=== PATIENT | female | born 1960 | race Caucasian/White ===

== ENCOUNTER 2016-05-29 12:17 | Inpatient (IN) | payer MEDICAID, OTHER ==
[~2016-05-29] VITALS: Ht 157.5 cm; Wt 47.7 kg
[~2016-05-29 12:17] MED LIST: ALBU17AE3 IH; AMOX500C2 PO; BUDE10.22 IH
[2016-05-29] MEDS ORDERED: HYDROcodone/APAP 5 MG/325 MG (LORTAB) TAB PO PRN (18:00)
[2016-05-29] MEDS: ALPRAZolam 0.25 MG (XANAX) TAB PO PRN (18:34)
[2016-05-29] MEDS: AMITRIPTYLINE 50 MG (ELAVIL) TAB PO SCH (22:01)
[2016-05-29] MEDS: ENOXAPARIN 30 MG/0.3 ML (LOVENOX) SYR SC SCH (22:02)
[2016-05-29] MEDS: HYDROcodone/APAP 10 MG/325 MG (LORTAB) TAB PO PRN (22:02)
[2016-05-30] MEDS: ALPRAZolam 0.25 MG (XANAX) TAB PO PRN ×2 (05:19→20:43)
[2016-05-30] MEDS: HYDROcodone/APAP 10 MG/325 MG (LORTAB) TAB PO PRN ×4 (05:19→20:43)
[2016-05-30 06:00] VITALS: BP 100/70
[2016-05-30 06:34] LABS: BASOPHILS # (AUTO) 0.1 10^3/uL (0.0-0.1); BASOPHILS % (AUTO) 1 % (0-10); EOSINOPHILS # (AUTO) 0.1 10^3/uL (0.0-0.3); EOSINOPHILS % (AUTO) 1 % (0-10); LYMPHOCYTES # (AUTO) 1.2 X 10^3 (1.0-4.0); LYMPHOCYTES % (AUTO) 13 % (12-44); MEAN CORPUSCULAR HEMOGLOBIN 28 PG (25-34); MEAN CORPUSCULAR HGB CONC 32 G/DL (32-36); MEAN CORPUSCULAR VOLUME 88 FL (80-99); MONOCYTES # (AUTO) 0.6 X 10^3 (0.0-1.0); MONOCYTES % (AUTO) 7 % (0-12); NEUTROPHILS # (AUTO) 7.3 X 10^3 (1.8-7.8); NEUTROPHILS % (AUTO) 79 % (42-75); PLATELET COUNT 256 10^3/uL (130-400); RED CELL DISTRIBUTION WIDTH 18.2 % (10.0-14.5); WHITE BLOOD COUNT 9.3 10^3/uL (4.3-11.0)
[2016-05-30 06:49] LABS: ALANINE AMINOTRANSFERASE 6 U/L (0-55); ANION GAP 11 MMOL/L (5-14); ASPARTATE AMINO TRANSFERASE 13 U/L (5-34); BILIRUBIN,TOTAL 0.4 MG/DL (0.1-1.0); BLOOD UREA NITROGEN 15 MG/DL (7-18); BUN/CREATININE RATIO 26; CALCIUM 7.4 MG/DL (8.5-10.1); CARBON DIOXIDE 24 MMOL/L (21-32); CHLORIDE 107 MMOL/L (98-107); CREATININE SERUM 0.57 MG/DL (0.60-1.30); GFR ESTIMATED > 60; GLUCOSE 79 MG/DL (70-105); POTASSIUM 3.5 MMOL/L (3.6-5.0); SODIUM 142 MMOL/L (135-145); TOTAL PROTEIN 4.8 G/DL (6.4-8.2)
[2016-05-30] MEDS: PARoxetine 10 MG (PAXIL) TAB PO SCH (08:49)
--- NOTE | 2016-05-30 08:50 | Consultation ---
History of Present Illness History of Present Illness Patient Consulted On(aimee/time) 05/30/16 08:44 Date of Admission History of Present Illness patient transferred from [facility] to [facility] and now back in rehabilitation. Patient doesn't give a good history. Patient refuses recreational drugs. According to the nurse patient uses mass. Patient denies drinking and smoking. Patient fragile and recent ofjou-woy-zstl amputation of the left leg. Patient has a Olivarez catheter in due to incontinence. Patient has breakdowns of skin. Allergies and Home Medications Allergies Coded Allergies: No Allergy Information Available (Unverified , 05/03/16) PT UNRESPONSIVE Home Medications Albuterol 17 Gm Inh 1 SPRAY IH UD (Reported) Amoxicillin 500 Mg Capsule #20 1 EACH PO TID Prescribed by: MELVA DUNN on 11/24/10 0759 Budesonide/Formoterol Fumarate 10.2 Gm Hfa.aer.ad 10.2 GM IH BID (Reported) Past Icdbnli-Gggaty-Pqawvt Hx Patient Social History Alcohol Use: Denies Use Recreational Drug Use: Yes (METH/PAST) Drug of Choice: meth Smoking Status: Current Everyday Smoker Type Used: Cigarettes Recent Foreign Travel: No Contact w/Someone Who Travel: No Recent Infectious Disease Expo: No Recent Hopitalizations: Yes (multi organ failure) Physical Abuse Screen: No Sexual Abuse: No Immunizations Up To Date Date of Influenza Vaccine: May 22, 2016 Seasonal Allergies Seasonal Allergies: No Surgeries HX Surgeries: No (unknown) Respiratory Hx Respiratory Disorders: No (unknown) Respiratory Disorders: COPD Cardiovascular Hx Cardiac Disorders: No (unknown) Genitourinary Genitourinary Disorders: Renal Failure Musculoskeletal Musculoskeletal Disorders: Amputee Blood Transfusions Adverse Reaction to a Blood Tr: No Review of Systems-General Constitutional: malaise weakness other (Kathrine fragile and has breakdowns) EENTM: no symptoms reported Respiratory: other (COPD history) Cardiovascular: no symptoms reported Gastrointestinal: no symptoms reported Genitourinary: incontinence (urge) Physical Exam-General Problems Physical Exam Vital Signs Vital Sign - Last 12Hours 05/29/16 05/29/16 05/30/16 17:00 21:30 06:00 Temp 97.6 Pulse 81 Resp 22 B/P 100/70 Pulse Ox 96 O2 Delivery Room Air Capillary Refill : Greater Than 3 Seconds General Appearance: thin Eyes: Bilateral Eye Normal Inspection HEENT: normal ENT inspection Neck: full range of motion Respiratory: chest non-tender no respiratory distress no accessory muscle use decreased breath sounds Cardiovascular: regular rate, rhythm no murmur Assessment/Plan Assessment/Plan Admission Diagnosis/Plan fragile. Weakness. New-onset diabetes. Skin breakdown Clinical Quality Measures DVT/VTE Risk/Contraindication: Risk Factor Score Per Nursin RFS Level Per Nursing on Admit: 4+=Very High IBRAHIMA PATTON DO May 30, 2016 08:50
--- NOTE | 2016-05-30 09:39 | Physical Therapy Evaluation ---
PT Evaluation-General Medical Diagnosis Admission Date May 29, 2016 at 18:00 Medical Diagnosis: ARF, Rhabdo, amputation Onset Date: May 30, 2016 Therapy Diagnosis Therapy Diagnosis: weakness; decreased functional mobility Height/Weight Height (Feet): 5 Height (Inches): 2 Weight (Pounds): 105 Weight (Ounces): 1.0 Precautions Precautions/Isolations: Fall Prevention, Standard Precautions, Pressure Ulcer Weight Bear Status Location Restriction: L LE Comments Left AKA; right LE with toes amputated, may WB through the heel per records and Dr. Lopez Referral Physician: John Reason for Referral: Evaluation/Treatment Medical History Current History Initial onset 05/04/16 pt found unresponsive on floor at home; multiple medical complications to follow. ARF, hypernatremia, Rhabdomyolysis; pt was intubated and on a vent several days. Chart review also reveals anxiety, history of meth abuse (pt denies), PVD and prior lunar infarct. Pt has also had (due to recent hospitalization) left AKA and right toes amputated. Reviewed History: Yes Social History Home: Single Level Current Living Status: Spouse Pt unsure but believes she lives in a house (not apartment) but denies any stairs to enter. Prior/Core FIM Prior Level of Function Functional [place] Measure 0=Not Assessed/NA 4=Minimal Assistance 1=Total Assistance 5=Supervision or Setup 2=Maximal Assistance 6=Modified [place] 3=Moderate Assistance 7=Complete [place] Bed Mobility: 7 Transfers (B,C,W/C) (FIM): 7 Gait: 7 Pt reports she was active in the community, still able to drive. PT Evaluation-Current Subjective Pt agreeable to PT. Pt/Family Goals Pt's goals are to return home. Objective Patient Orientation: Person, Confused Problem Solving: Poor At times, she is clear on her thought process and other times she is quite confused. Pt unable to tell us where she is or the date/time of year. Talks at times of her mother in the present tense but then states that she has passed. Her clarity varies. ROM/Strength ROM Lower Extremities WFL AAROM; pt a bit resistant at end ranges. Strenght Lower Extremities Left residual limb hip flexion and abduction is 3/5. Right LE DF 2/5, hip flexion and quads are 2+/5. Integumentary/Posture Integumentary Multiple areas, refer to nursing notes for full detail. Of note, bilateral elbows reddened--elbow protectors applied, right heel reddened--elevated, coccyx with breakdown and redness--tilted to her side. Bowel Incontinence: Yes Bladder Incontinence: Olivarez Cath Posture symmetrical; slight rounded shoulders in sitting but likely due to weakness. Neuromuscular (Tone, Coordination, Reflexes) Did not assess at this time specifically, but likely slightly impaired yet functional Sensory Vision: Functional Hearing: Functional Hand Dominance: Right Sensation Right Lower Extremit: Intact Sensation Left Lower Extremity: Intact Transfers Functional [place] Measure 0=Not Assessed/NA 4=Minimal Assistance 1=Total Assistance 5=Supervision or Setup 2=Maximal Assistance 6=Modified [place] 3=Moderate Assistance 7=Complete IndependenceIRFPAI Quality Coding Scale 6 Independent with activity with or without an assistive device 5 Patient requires set up or clean up by helper. Patient completes activity by themselves 4 Supervision or touching assist (CGA). Long [address] provide cues , steadying assist 3 The helper provides less than half the effort to complete the activity 2 The helper provides more than half the effort to complete the activity 1 Dependent. The helper does all the effort to complete an activity 7 Patient refused to complete or attempt activity 9 The patient did not perform the activity before the current illness or injury 88 Not attempted due to Medical conditions or safety concerns Transfers (B, C, W/C) (FIM): 1 (Asssit of 2) Scootin Rollin Roll Left to Right (QC): 2 Supine to/from Sit: 1 Sit to/from Stand: 1 (not tested at this time. ) bed t/f WC(FIM only if WC use): 1 Sit to Lying (QC): 2 Lying to Sitting/Side of Bed(Q: 2 Sit to Stand (QC): 88 Chair/Plt-cs-Vlxae Xfer(QC): 88 Car Transfer (QC): 88 Pt can participate with mobilty but needs many cues and much assist. Gait Does the Patient Walk?: Yes Mode of Locomotion: Both Anticipated Mode of Locomotion: Both Gait (FIM): 0 (unable at this time) Walk 10 feet (QC): 88 Walk 50 ft with 2 Turns(QC): 88 Walk 150 ft (QC): 88 Walking 10ft/uneven surface-QC: 88 Comments/Gait Description Pt unable to walk at this time or even attempt to stand, however, goal is for patient to be able to at least hop a short distance in the room. Wheelchair Training Does the Pt Use a Wheelchair?: Yes Wheelchair (FIM): 88 Wheelchair Distance (FIM): 0=does not occure Type of Wheelchair: Manual wc mobility not tested at this time as pt unable to perform Stairs Stairs (FIM): 0 (unable to stand) 1 Step (curb) (QC): 88 4 Steps (QC): 88 12 Steps (QC): 88 If not tested on admit;explain Unable to stand Balance Sitting Static: Poor Sitting Dynamic: Poor Picking up an Object (QC): 88 (unable to stand) Treatment Co treat with OT due to pt poor ability to follow cues, stay on task and multiple need for skilled clinician. OT addressed self care and ADL's while PT focused on functional transfers, sitting EOB balance and bed mobility. Pt bathed and dressed with OT while PT facilitated transitions, seated balance static and dynamic as well as rolling scooting and positioning in bed to dress. Pt positioned post treatment to relieve pressure on right heel and coccyx. Assessment/Needs Pt post multiple medical complications after being found at home unresponsive. She has endured multiple medical issues and sustained left AKA and right toes amputation. She presents with decreased functional strength, decreased functional balance, assist with all transfers and bed mobility, unable to stand and limited functional activity tolerance. She has many medical issues that may impede her progress and is severely weakened with much assist for all mobility and self care. She will benefit from skilled PT services to address her mobility and strength to allow her to return home at a modified level. Rehab Potential: Guarded PT Short Term Goals Short Term Goals Time Frame: Jun 13, 2016 Transfers (B,C,W/C) (FIM): 4 Gait (FIM): 1 (hops only) Wheelchair (FIM): 4 Wheelchair distance (FIM): 3=150 ft PT Intermediate Goals Intermediate Goals PT Button Sewer Hand Goals Time Frame: Jun 27, 2016 Transfers (B,C,W/C) (FIM): 6 Sit to Lying (QC): 6 Lying-Sitting on Side/Bed(QC): 6 Sit to Stand (QC): 6 Roll Left to Right (QC): 6 Chair/Ueb-ep-Xfwee Xfer(QC): 6 Car Transfer (QC): 5 Does the Patient Walk: Yes Gait (FIM): 2 Gait distance (FIM): 1=up to 49 ft Distance: 10 ft hopping Walk 10 feet (QC): 4 Walk 10ft-Uneven Surface(QC): 88 Walk 50ft with 2 Turns (QC): 88 Walk 150 ft (QC): 88 Gait Level of Assist: 4 Gait Assistive Device: FWW Does the Pt use WC or Scooter?: Yes Wheelchair (FIM): 6 Wheelchair distance (FIM): 3=150 ft Wheelchair Level of Assist: 6 Wheel 50 feet with 2 turns (QC: 6 Stairs (FIM): 88 (usafe to attempt) 1 Step (curb) (QC): 88 4 Steps (QC): 88 12 Steps (QC): 88 Picking up an Object (QC): 88 (unsafe) Goals are for pt to primarily be at a wheelchair level being mod indep with transfers and wheelchair mobility. An additional goal is for her to hop only short distance to assist her to move about in small places with FWW with min- SBA. PT Plan Problem List Problem List: Activity Tolerance, Functional Strength, Safety, Balance, Gait, Transfer, Bed Mobility, ROM Treatment/Plan Treatment Plan: Continue Plan of Care Treatment Plan: Bed Mobility, Education, Functional Activity [place], Functional Strength, Group Therapy, Gait, Safety, Therapeutic Exercise, Transfers Treatment Duration: Jun 27, 2016 # of days/week 5-6 Visits Per Week: 10-15 Minutes/Day (M-F): 60-90 Minutes/Day (Sat/Gallego): prn Pt/Family Agrees w/Plan: Yes Safety Risks/Education Patient Education: Safety Issues Teaching Recipient: Patient Teaching Methods: Discussion Response to Teaching: Reinforcement Needed Discharge Recommendations Plan Progress functional mobility. Attempt slide board or jill transfer this afternoon. Time/GCodes Time In: 820 Time Out: 930 Total Billed Treatment Time: 70 Total Billed Treatment visit EVHigh 820-830 FA x 4 830-930; co treat with OT 830-930. DAVID AWAD PT May 30, 2016 09:38
--- NOTE | 2016-05-30 09:42 | PM & R (SOAP) Progress Note ---
Subjective Subjective/Events-last exam Patient was seen in her room this AM Discussed case with PT and ST Appreciate Dr christianson note and orders Labs noted Serum Ca and K albumin low Review of Systems HEENT: Other (difficulty with swallow) Objective Exam Last Set of Vital Signs Vital Signs Date Time Temp Pulse Resp B/P Pulse Ox O2 Delivery O2 Flow Rate FiO2 05/30/16 06:00 97.6 81 22 100/70 98 Room Air Capillary Refill : Greater Than 3 Seconds I&O Bad tableGeneral: Alert, Oriented X3, Cooperative, No Acute Distress HEENT: Atraumatic, PERRLA, EOMI, Mucous Memb Moist/[place] Neck: Supple, No JVD Lungs: Clear to Auscultation Heart: Regular Rate Abdomen: Normal Bowel Sounds, Soft, No Tenderness Extremities: Other (left aka healing well rt foor dressed) Skin: Other (various bruises) Neuro: Other (generalized weakness) Psych/Mental Status: Other (flat affect) Other physical findings Olivarez catheter to DD Results Lab Laboratory Tests 05/29/16 19:36: Glucometer 82 05/29/16 21:01: Glucometer 84 05/30/16 06:18: Glucometer 81 05/30/16 06:19: Alanine Aminotransferase (ALT/SGPT) 6, Albumin 2.0L, Alkaline Phosphatase 124, Anion Gap 11, Aspartate Amino Transf (AST/SGOT) 13, BUN/Creatinine Ratio 26, Basophils # (Auto) 0.1, Basophils (%) (Auto) 1, Blood Urea Nitrogen 15, Calcium Level 7.4L, Carbon Dioxide Level 24, Chloride Level 107, Creatinine 0.57L, Eosinophils # (Auto) 0.1, Eosinophils (%) (Auto) 1, Estimat Glomerular Filtration Rate > 60, Glucose Level 79, Hematocrit 28L, Hemoglobin 8.9L, Lymphocytes # (Auto) 1.2, Lymphocytes (%) (Auto) 13, Mean Corpuscular Hemoglobin 28, Mean Corpuscular Hemoglobin Concent 32, Mean Corpuscular Volume 88, Mean Platelet Volume 11.0H, Monocytes # (Auto) 0.6, Monocytes (%) (Auto) 7, Neutrophils # (Auto) 7.3, Neutrophils (%) (Auto) 79H, Platelet Count 256, Potassium Level 3.5L, Prealbumin 12.7L, Red Blood Count 3.20L, Red Cell Distribution Width 18.2H, Sodium Level 142, Total Bilirubin 0.4, Total Protein 4.8L, White Blood Count 9.3 Assessment/Plan Assessment S/P left aka S/P toe amputations rt foor WBAT RT Heel Underweight with hx of Substance abuse Hypocalcemia Hypokalemia mild Anemia Dysphagia on modified consistency diet Plan Continue PT/OT/ST Patient late arrival from OSH last evening and assessments ongoing Replace electrolytes Nutritional consult Behav Health consult WBS RLE clarified D/C Olivarez when more mobile F/U Labs F/U with DR Varela PRYong F/U with Case management re patient obtaining a Medical Card as patient has no current Medical Insurance. See orders. MAHENDRA MCGILL MD May 30, 2016 09:42
--- NOTE | 2016-05-30 10:01 | HISTORY AND PHYSICAL ---
DATE OF ADMISSION: 05/29/2016 CHIEF COMPLAINT: Difficulty with walking. HISTORY OF PRESENT ILLNESS: The patient is a 55-year-old female with history of meth abuse who was transferred from [facility] to [facility] in [place] after she presented there unresponsive with profound circulatory shock and multiorgan failure. The patient received fluid resuscitation. CT of the head showed old lacunar infarcts in the basal ganglia. The patient went on to have a left AKA on 05/13/2016. The patient received 2 units packed red blood cells on 05/26 and 05/27/2016 and 2nd, 3rd and 4th toes and tip of the great toe amputation of the right foot. Right heel is weight-bearing as tolerated using Darco ortho wedge postop shoe. Her postop acute kidney injury and acute respiratory failure have resolved. Prior to hospitalization, the patient was living with her in [place], [place] and was reportedly independent; however, the patient is quite underweight with pressure sores on her buttocks and various bruising. She was referred to Inpatient Rehabilitation Unit at [facility] for ongoing amputee rehab and rehab for general debilitation. One of her physicians at [facility] discussed the case with Dr. Lopez by phone today. He mentioned it to watch out for dehydration as she is underweight, most likely due to history of substance abuse. Currently, she requires assistance for her ADLs and mobility skills. Her Accu-Chek upon admission was 29. Replacement was given. PAST MEDICAL HISTORY: 1. Substance abuse. 2. Weight loss, most likely due to above PAST SURGICAL HISTORY: As per above. Acute blood loss anemia as per above. PAST SURGICAL HISTORY: As per above. ALLERGIES: No known medication allergies. CODE STATUS: She is reported to be a DO NOT RESUSCITATE. FAMILY HISTORY: Noncontributory. SOCIAL HISTORY: She lives with her spouse. No current medical insurance. Lives in [place]. 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 MEDICATIONS: 1. Paxil 15 mg p.o. daily. 2. Elavil 50 mg p.o. at bedtime. 3. Lortab 5, 1 to 2 tablets p.o. q.4 hours p.r.n. moderate pain. 4. Xanax 0.25 mg p.o. q.8 hours p.r.n. anxiety. PHYSICAL EXAMINATION: Significant for an underweight female, alert and oriented, lying in bed in no acute distress. VITAL SIGNS: Within normal limits. She is afebrile. HEENT: Vision, speech, hearing, grossly intact. No oral lesion is noted. NECK: Supple without mass. HEART: Regular rhythm. LUNGS: Clear. ABDOMEN: Soft, nontender. Bowel sounds present. EXTREMITIES: She has muscle wasting in all 4 limbs. There is a dressing over the right foot. The left AKA incision site is healing well. No drainage noted She has dry skin both hands with shedding of skin MUSCULOSKELETAL: She has generalized weakness but functional active range of motion in left upper limb and proximal right lower limb and left hip.She is rt hand dominant but has limited AROM RUE NEUROLOGIC: Sensation is grossly intact to touch. Cognition with impaired memory. Strength; she has generalize weakness with muscle wasting noted. She weighs only 47.656 kg. Indwelling Olivarez catheter to DD IMPRESSION: 1. Status post left AKA 05/13/2016, [facility] in [place], [place]. 2. Postoperative anemia, status post transfusion 2 units packed red blood cells on 05/26 and 05/27/2016. 3. Status post toe amputations on the right foot 2nd, 3rd, and 4th toes and tip of the great toe with right heel, weight-bearing using Darco ortho wedge postop shoe. 4. Substance abuse. 5. Weight loss associated with above. 6. Pressure sore on buttocks. 7. Dysphagia on thickened liquids and pureed consistency solids. 8. Hypoglycemia supplement given, will monitor. PLAN: The patient will have a comprehensive program of amputee rehabilitation taking into consideration multiple comorbidities and weight loss and general debility. The patient will have PT/OT 90 minutes per day, each discipline, 5 days a week for gait strengthening, conditioning, balance, ADLs, any patient/family/caregiver training necessary, any adaptive equipment and training necessary. Speech therapy to do cognitive assessment and treat as indicated, swallow assessment, treat as indicated. Rehabilitation nursing assist with bowel, bladder, skin, wound care, medication administration, pain management, monitoring Accu-Cheks. front services agent to assist with discharge planning, community reentry and 2 follow-up regarding the patient's application for [place] Medicaid. Consult Dr. Varela for medical management for this out of town patient. Consulted Dr. Jules for wound care treatment. Consult Behavioral Health Services due to her history of weight loss and substance abuse. Consult dietitian regarding recommendations for weight gain. Monitor for dehydration. Routine admission labs. Check prealbumin level. Lovenox subcutaneous for DVT prophylaxis. Pain management. ESTIMATED LENGTH OF STAY: 2 to 3 weeks. PROGNOSIS: Rehab prognosis appears good for goal of discharging home with spouse, hopefully, modified independent to supervision for ADLs and mobility skills at the wheelchair level of function. Diet is regular with supplements as needed. Code status; the patient requested DO NOT RESUSCITATE. Monitor Accu-Cheks and adjust nutritional supplement. Medications as needed. Therapy with cardiac and fall precautions. Weight-bearing precautions. POST ADMISSION PHYSICIAN ASSESSMENT: The preadmission screen agrees with the post admission assessment that the patient is a good candidate for inpatient rehabilitation. She appears to be well motivated to participate in 3 hours of therapy a day. She should be able to tolerate 3 hours of therapy a day from a medical and surgical standpoint. Goals are somewhat limited due to her limited weight-bearing status so we will focus on wheelchair level of function. She has a reasonable discharge plan, reasonable discharge rehabilitation goals and a supportive family. She has various comorbidities that need to be closely monitored with medications and treatments adjusted on a daily basis as needed. These include her weight loss, wound care, episode of hypoglycemia and pain management. BARRIERS TO DISCHARGE: Barriers to discharge for this patient who was reported to have been independent prior to this, are for her to be modified independent to supervision for ADLs and mobility skills at the wheelchair level of function prior to discharge home with spouse so as to lessen the burden of the caregivers. RISKS FOR THIS PATIENT: Include: 1. Wound infection. 2. Skin breakdown. 3. Contractures. 4. Poorly controlled pain. 5. Another hypoglycemic episode. 6. DVT. 7. Pulmonary embolism. 8. Respiratory infection. 9. Aspiration. 10. Urinary retention. 11. UTI. 12. Continued weight loss. Job ID: [id number] Dictated Date: 05/29/2016 20:14:08 Rug Touch Up Painter Date: 05/30/2016 09:40:30/melodie OCONNELL
--- NOTE | 2016-05-30 11:55 | Occupational Therapy Eval ---
OT Evaluation-General/PLF Medical Diagnosis Admission Date May 29, 2016 at 18:00 Medical Diagnosis: ARF, Rhabdo, amputation Onset Date: May 30, 2016 Therapy Diagnosis Therapy Diagnosis: Weakness, Decreased ADL skills Height/Weight Height (Feet): 5 Height (Inches): 2 Weight (Pounds): 105 Weight (Ounces): 1.0 Precautions Precautions/Isolations: Fall Prevention, Standard Precautions, Pressure Ulcer Safety Interventions: Reorient-Attempt, Reorient-PRN Weight Bear Status Location Restriction: L LE WBS (Ord/Comment): AKA left LE, able to bear weight through right Heel. Referral Physician: John Referral Reason: Activity Tolerance, Self Care, Evaluation/Treatment, Strengthening/ROM Medical History Additional Medical History Hypernatremia, anxiety, Meth use, Left AKA, right toe amputations, hypokalemia, rhabdo Current History Pt. found unresponsive. Was on ventilator. Severe anxiety noted. Pt. has multiple skin issues, including peeling skin on bilateral hands, and very little movement of right UE. Multiple sores noted on bottom/sacral area. Red elbows. Pads in place. Reviewed History: Yes Social History Home: Single Level Current Living Status: Spouse Entry Into Home: Level Entry ADL-Prior Level of Function ADL PLOF Comments Pt. is able to state that she was independent before this happened. States that she drives, but is afraid to state this as she does not have a drivers license. DME/Equipment: Tub/Shower DME/Equipment Comments States that she has no equipment at home. 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 Drive Self: Yes OT Current Status Subjective Pt. does not specifically report pain. However, she does grimace throughout treatment when rolling side to side, or sitting on side of bed. Appearance Pt. in bed. Somewhat confused at beginning of treatment. Whispers and has difficulty saying things loudly. Mental Status/Objective Patient Orientation: Unable to Assess Comprehension: 3 (Pt. is able to comprehend cues at times for movement. At later times is unable to state her knowledge of what has happened to her.) Memory: 3 (Pt. is unable to state what happened to her or where she is. At first, does not know how many children she has. However, by end of treatment is able to name 3 daughters. Does not know how many grandchildren she has.) Current Hand Dominance: Right Upper Extremity ROM Left- WFL right- very limited. No active movement in right shoulder, elbow, wrist. Trace movement in right fingers noted. Pt. will often use left UE to move right UE. Upper Extremity Coordination left- intact Pt. has multiple red areas on bilateral UE. Reddened elbows noted that are protected with elbow pads. Pt. has dry areas on bilateral hands that are "shedding" profusely. Pt. is unable to state why this is or how long she has had this. Multiple red areas on hands noted. Left hand warm to touch. Right hand cool to touch. ADL-Treatment Functional [place] Measure 0=Not Assessed/NA 4=Minimal Assistance 1=Total Assistance 5=Supervision or Setup 2=Maximal Assistance 6=Modified [place] 3=Moderate Assistance 7=Complete IndependenceIRFPAI Quality Coding Scale 6 Independent with activity with or without an assistive device 5 Patient requires set up or clean up by helper. Patient completes activity by themselves 4 Supervision or touching assist (CGA). [place] provide cues , steadying assist 3 The helper provides less than half the effort to complete the activity 2 The helper provides more than half the effort to complete the activity 1 Dependent. The helper does all the effort to complete an activity 7 Patient refused to complete or attempt activity 9 The patient did not perform the activity before the current illness or injury 88 Not attempted due to Medical conditions or safety concerns Eating (FIM): 2 (Pt. given pudding and is able to tolerate eating it. Pt. is able to grasp spoon at some points, but OT has to hold the pudding cup. Otherwise, OT feeds her. Pt. request coke and thickened coke ordered per nursing. Pt. attempts to drink from side but coughs. Pt. given it with spoon and instructed to tuck chin. Able to do this and swallow.) Eating (QC): 2 Grooming (FIM): 1 (Pt. has massive knotting on back of head. Pt. is given brush but will not initiate brushing hair. Will wash face with washcloth after many cues. Has no teeth or dentures. Declines brushing mouth.) Oral Hygiene (QC): 7 Bathing (FIM): 2 (Please see note below.) Shower/Bathe Self (QC): 88 Upper Body Dressing (FIM): 2 (Please see note below.) Upper Body Dressing (QC): 2 Lower Body Dressing (FIM): 1 (Please see note below.) Lower Body Dressing (QC): 1 On/Off Footwear (QC): 88 Toileting (FIM): 1 (Please see note below.) Toileting Hygiene (QC): 1 Other Treatments Pt. in bed this date. Verbalizing but not making sense at times. Very quiet with words and whispering. Co-treat performed with OT/PT. Pt. agreed to treatment. Transferred supine-sit with max x 2. Pt. yells out but does not indicate what hurts. PT focuses on balance EOB and dynamic movement while OT focuses on ADLs, such as bathing/dressing. Pt. required constant cues and tactile stimulation from PT while OT provided skilled instruction to bathe areas. Pt. able to wash face after multiple cues. Instructed her to wash chest and arms. Required cues and then max assist to wash under left UE. Pt. encouraged to wash upper legs but will "dab" at them. Pt. assisted back to supine while OT/PT assessed skin and provided skilled instruction to roll back and forth. Note several wounds on sacral area, as well as left greater trochanter. Mod/max assist to roll self back and forth on bed. Pt. required max assist to sit back on side of bed. OT provided instruction to dress self. Educated her on donning right side first. Unable to follow cues to put on right side and then left/dry chain puller head. Unable to don pants. Dependent for this. Overall, OT focused on ADL skills, sequencing, and visual perceptual cues. PT focused on sitting balance/dynamic movement, and skilled instruction for bed sore prevention. All needs met at end of treatment. Pt. positioned off sacral area with right UE elevated, and heels off bed. Education OT Patient Education: Correct positioning, Modified ADL techniques, Progress toward Goal/Update tx plan, Purpose of tx/functional activities, Reviewed precautions, Rehab process, Transfer techniques Teaching Recipient: Patient Teaching Methods: Demonstration, Discussion Response to Teaching: Verbalize Understanding, Return Demonstration OT Short Term Goals Short Term Goals Time Frame: Jun 13, 2016 Eating(FIM): 5 Grooming(FIM): 4 Bathing(FIM): 3 Upper Body Dressing(FIM): 5 Lower Body Dressing(FIM): 4 Toileting(FIM): 3 Transfers (B,C,W/C) (FIM): 3 Toilet/Commode Transfer(FIM): 3 Shower Transfer(FIM): 3 Additional Short Term Goals: 1-Demonstrate ADL Tasks, 2-Verbalize Understanding , 3-ImproveStrength/[place] 1=Demonstrate adherence to instructed precautions during ADL tasks. 2=Patient will verbalize/demonstrate understanding of assistive devices/ modifications for ADL. 3=Patient will improve strength/tolerance for activity to enable patient to perform ADL's. OT Group Burner Machine Goals Mcfp Goals Time Frame: Jul 04, 2016 Eating (FIM): 6 Eating (QC): 6 Oral Hygiene (QC): 6 Grooming(FIM): 6 Bathing(FIM): 5 Shower/Bathe Self (QC): 5 Upper Body Dressing(FIM): 5 Upper Body Dressing (QC): 5 Lower Body Dressing(FIM): 5 Lower Body Dressing (QC): 5 On/Off Footwear (QC): 5 Toileting(FIM): 6 Toileting Hygiene (QC): 6 Transfers (B,C,W/C) (FIM): 5 Toilet/Commode Transfer(FIM): 5 Toilet/Commode Transfer (QC): 5 Shower Transfer(FIM): 5 Additional Goals: 1-Demonstrate ADL Tasks, 2-Verbalize Understanding, 3- ImproveStrength/[place] 1=Demonstrate adherence to instructed precautions during ADL tasks. 2=Patient will verbalize/demonstrate understanding of assistive devices/ modifications for ADL. 3=Patient will improve strength/tolerance for activity to enable patient to perform ADL's. OT Education/Plan Problem List/Assessment Assessment: Decreased Activ Tolerance, Decreased Safety Aware, Decreased UE Strength, Dependent Transfers, Impaired Bed Mobility, Impaired Cognition, Impaired Coordination, Impaired Funct Balance, Impaired I ADL's, Impaired Self- Care Skills, Restricted Funct UE ROM, Visual-Perceptual Deficit Discharge Recommendations Plan/Recommendations: Continue POC Therapy D/C Recommendations: Home w/ Family Support, Occupational Therapy Home Care, Scheduled Assistance Equpiment Recommendations-D/C: Extended Bath Bench, Bedside Commode Comment Pt. will most likely need a wheelchair and walker. Barriers to Progress cognition, multiple pressure sores, amputation Target Placement Home with spouse and scheduled assistance. However, at this time pt is unable to state what her spouse can assist with. Treatment Plan/Plan of Care Treatment,Training & Education: Yes Patient would benefit from OT for education, treatment and training to promote independence in ADL's, mobility, safety and/or upper extremity function for ADL' s. Plan of Care: ADL Retraining, Caregiver Training, Cognitive Retraining, Functional Mobility, UE Funct Exercise/Act, Visual/Perceptual Retrain Treatment Duration: Jul 04, 2016 # of days/week 5-6 Visits Per Week: 10-12 Agreement: Yes Rehab Potential: Guarded Time/GCodes Start Time: 08:10 Stop Time: 09:30 Total Time Billed (hr/min): 80 Billed Treatment Time 2653-7564 1, EVhigh complexity [id number] PT eval. No OT charge [id number] ADL x 4 Co-treat with PT. Please see above for designated roles. MAURICE RAMOS OT May 30, 2016 11:55
[2016-05-30] MEDS ORDERED: PARO10TA3 PO (12:48)
[2016-05-30] MEDS ORDERED: HYDR-3812 PO (12:48)
[2016-05-30] MEDS ORDERED: AMIT50TA3 PO (12:48)
[2016-05-30] MEDS ORDERED: ALPR1TAB7 PO (12:49)
--- NOTE | 2016-05-30 14:27 | Physical Therapy Daily Note ---
PT Daily Note-Current Subjective Agreeable to PT. Mental Status Patient Orientation: Person, Confused Transfers Functional [place] Measure 0=Not Assessed/NA 4=Minimal Assistance 1=Total Assistance 5=Supervision or Setup 2=Maximal Assistance 6=Modified [place] 3=Moderate Assistance 7=Complete IndependenceIRFPAI Quality Coding Scale 6 Independent with activity with or without an assistive device 5 Patient requires set up or clean up by helper. Patient completes activity by themselves 4 Supervision or touching assist (CGA). [place] provide cues , steadying assist 3 The helper provides less than half the effort to complete the activity 2 The helper provides more than half the effort to complete the activity 1 Dependent. The helper does all the effort to complete an activity 7 Patient refused to complete or attempt activity 9 The patient did not perform the activity before the current illness or injury 88 Not attempted due to Medical conditions or safety concerns Pt worked on rolling in bed for positioning and scooting with max assist. PT addressed placement of legs and arms/hands to facilitate rolling while OT addressed positioning of UE's. Pt transitioned sup to/from sit with max assist. Pt sat EOB with mod to SBA varied. PT addressed seated static and dynamic balance activities while OT addressed donning and doffing sock on the right. PT assisted pt with propping of the right UE and worked on core strength to facilitate ADL's with OT. Sit to stand x 1 with WB through the right heel. PT focused on the transfer and OT addressed hand placement and maintenance of the right hand on the walker. Pt in bed post treatment with needs met, rolled slightly to the left, right heel elevated and right UE elevated. Assessment Pt more participatory with transfers and functional activity this visit. Treatment requires 2 skilled clinicians to address her multitude of needs and facilitate overall mobility and positioning for optimal progress. She is cooperative albeit fatigued this pm. PT Short Term Goals Short Term Goals Time Frame: Jun 13, 2016 Transfers (B,C,W/C) (FIM): 4 Gait (FIM): 1 (hops only) Wheelchair (FIM): 4 Wheelchair distance (FIM): 3=150 ft PT Hat Lining Blocker Goals Hat Lining Blocker Goals PT Hat Lining Blocker Goals Time Frame: Jun 27, 2016 Transfers (B,C,W/C) (FIM): 6 Sit to Lying (QC): 6 Lying-Sitting on Side/Bed(QC): 6 Sit to Stand (QC): 6 Rollin Roll Left to Right (QC): 6 Chair/Grr-lr-Aijgn Xfer(QC): 6 Car Transfer (QC): 5 Does the Patient Walk: Yes Gait (FIM): 2 Gait distance (FIM): 1=up to 49 ft Distance: 10 ft hopping Walk 10 feet (QC): 4 Walk 10ft-Uneven Surface(QC): 88 Walk 50ft with 2 Turns (QC): 88 Walk 150 ft (QC): 88 Gait Level of Assist: 4 Gait Assistive Device: FWW Does the Pt use WC or Scooter?: Yes Wheelchair (FIM): 6 Wheelchair distance (FIM): 3=150 ft Wheelchair Level of Assist: 6 Wheel 50 feet with 2 turns (QC: 6 Stairs (FIM): 88 (usafe to attempt) 1 Step (curb) (QC): 88 4 Steps (QC): 88 12 Steps (QC): 88 Picking up an Object (QC): 88 (unsafe) PT Plan Problem List Problem List: Activity Tolerance, Functional Strength, Safety, Balance, Gait, Transfer, Bed Mobility Treatment/Plan Treatment Plan: Continue Plan of Care Treatment Plan: Bed Mobility, Education, Functional Activity [place], Functional Strength, Group Therapy, Gait, Safety, Therapeutic Exercise, Transfers Treatment Duration: Jun 27, 2016 Visits Per Week: 10-15 Minutes/Day (M-F): 60-90 Minutes/Day (Sat/[place]): prn Safety Risks/Education Patient Education: Transfer Techniques, Correct Positioning Teaching Recipient: Patient Teaching Methods: Discussion Response to Teaching: Reinforcement Needed Time/GCodes Time In: 1345 Time Out: 1415 Total Billed Treatment Time: 30 Total Billed Treatment visit FA 30 Co treat [id number] DAVID AWAD PT May 30, 2016 14:27
--- NOTE | 2016-05-30 15:18 | Occupational Ther Daily Note ---
OT Current Status-Daily Note Subjective Pt. reports that her back hurts but is unable to give a pain level. Nursing notified and pt. had pain medication 2 hours previous. Appearance Pt. in bed. Agrees to treatment. Mental Status/Objective Functional [place] Measure 0=Not Assessed/NA 4=Minimal Assistance 1=Total Assistance 5=Supervision or Setup 2=Maximal Assistance 6=Modified [place] 3=Moderate Assistance 7=Complete [place] Attachments: IV ADL-Treatment Functional [place] Measure 0=Not Assessed/NA 4=Minimal Assistance 1=Total Assistance 5=Supervision or Setup 2=Maximal Assistance 6=Modified [place] 3=Moderate Assistance 7=Complete IndependenceIRFPAI Quality Coding Scale 6 Independent with activity with or without an assistive device 5 Patient requires set up or clean up by helper. Patient completes activity by themselves 4 Supervision or touching assist (CGA). [place] provide cues , steadying assist 3 The helper provides less than half the effort to complete the activity 2 The helper provides more than half the effort to complete the activity 1 Dependent. The helper does all the effort to complete an activity 7 Patient refused to complete or attempt activity 9 The patient did not perform the activity before the current illness or injury 88 Not attempted due to Medical conditions or safety concerns On/Off Footwear (QC): 1 (Pt. requires dependent assistance to don right sock.) Transfers (B, C, W/C) (FIM): 2 (Max assist to roll to side, and max assist for supine-sit. Max assist for sit-stand, and max assist for sit-supine.) Other Treatment OT/PT co-treat. Began treatment by facilitating rolling in bed for wound care nurse to assess pt's bottom. Pt. able to do this with max assist. After wound care assessed, OT/PT facilitated transfer to side of bed. PT continued with skilled instruction for scooting to side of bed, and foot placement on floor. OT provided skilled instruction for sock placement, and hand placement on walker when transferring to standing. Once up, pt's knees gave out and pt. lowered slowly to bed. PT continued with CGA for balance while OT facilitated pt. taking sips from cup of thickened liquid. Pt. requires constant cues to take spoon, and pt. will not, but does open her mouth for OT to put spoon with liquid in it. Pt. then opened mouth and attempted to drink from side of cup. Pt. did cough and states that she does not want more. Pt. is transferred back to bed and all needs met after treatment. Pt. is positioned on left side with arms and heels elevated off bed. Education OT Patient Education: Correct positioning, Modified ADL techniques, Progress toward Goal/Update tx plan, Purpose of tx/functional activities, Reviewed precautions, Rehab process, Transfer techniques Teaching Recipient: Patient Teaching Methods: Demonstration, Discussion Response to Teaching: Verbalize Understanding, Return Demonstration OT Short Term Goals Short Term Goals Time Frame: Jun 13, 2016 Eating(FIM): 5 Grooming(FIM): 4 Bathing(FIM): 3 Upper Body Dressing(FIM): 5 Lower Body Dressing(FIM): 4 Toileting(FIM): 3 Transfers (B,C,W/C) (FIM): 3 Toilet/Commode Transfer(FIM): 3 Shower Transfer(FIM): 3 Additional Short Term Goals: 1-Demonstrate ADL Tasks, 2-Verbalize Understanding , 3-ImproveStrength/[place] 1=Demonstrate adherence to instructed precautions during ADL tasks. 2=Patient will verbalize/demonstrate understanding of assistive devices/ modifications for ADL. 3=Patient will improve strength/tolerance for activity to enable patient to perform ADL's. OT Senior C Web Developer Goals [place] Goals Time Frame: Jul 04, 2016 Eating (FIM): 6 Eating (QC): 6 Oral Hygiene (QC): 6 Grooming(FIM): 6 Bathing(FIM): 5 Shower/Bathe Self (QC): 5 Upper Body Dressing(FIM): 5 Upper Body Dressing (QC): 5 Lower Body Dressing(FIM): 5 Lower Body Dressing (QC): 5 On/Off Footwear (QC): 5 Toileting(FIM): 6 Toileting Hygiene (QC): 6 Transfers (B,C,W/C) (FIM): 5 Toilet/Commode Transfer(FIM): 5 Toilet/Commode Transfer (QC): 5 Shower Transfer(FIM): 5 Additional Goals: 1-Demonstrate ADL Tasks, 2-Verbalize Understanding, 3- ImproveStrength/[place] 1=Demonstrate adherence to instructed precautions during ADL tasks. 2=Patient will verbalize/demonstrate understanding of assistive devices/ modifications for ADL. 3=Patient will improve strength/tolerance for activity to enable patient to perform ADL's. OT Education/Plan Problem List/Assessment Assessment: Decreased Activ Tolerance, Decreased Safety Aware, Decreased UE Strength, Dependent Transfers, Impaired Bed Mobility, Impaired Cognition, Impaired Coordination, Impaired Funct Balance, Impaired I ADL's, Impaired Self- Care Skills, Restricted Funct UE ROM, Visual-Perceptual Deficit Discharge Recommendations Plan/Recommendations: Continue POC Therapy D/C Recommendations: Home w/ Family Support, Occupational Therapy Home Care, Scheduled Assistance Treatment Plan/Plan of Care Treatment,Training & Education: Yes Patient would benefit from OT for education, treatment and training to promote independence in ADL's, mobility, safety and/or upper extremity function for ADL' s. Plan of Care: ADL Retraining, Caregiver Training, Cognitive Retraining, Functional Mobility, UE Funct Exercise/Act, Visual/Perceptual Retrain Treatment Duration: Jul 04, 2016 Visits Per Week: 10-12 Agreement: Yes Rehab Potential: Guarded Time/GCodes Start Time: 13:45 Stop Time: 14:15 Total Time Billed (hr/min): 30 Billed Treatment Time 1, FA x 2 co-treat with PT Please see above note for designated roles. MAURICE RAMOS OT May 30, 2016 15:18
--- NOTE | 2016-05-30 15:44 | ST Cognitive Linguistic Eval ---
Speech Evaluation-General Medical Diagnosis ARF, Rhabdo, amputation Onset Date: May 30, 2016 Therapy Diagnosis Therapy Diagnosis: Moderate to Severe Cognitive Impairment Precautions Precautions/Isolations: Fall Prevention, Standard Precautions, Pressure Ulcer Referral Referring Physician: Dr. Lopez Reason for Referral: Evaluation/Treatment Cognitive Screen Medical History Pertinent Medical History: COPD, DM, Smoking renal failure, meth use Reviewed History: Yes Social History Current Living Status: Spouse Speech PLF-Current Status Prior Level of Function The patient did not respond to questions poised by clinician regarding previous level of cognitive function. Subjective The patient was recently admitted to [facility]. The patient intermittently opened eyes with maximum clinician verbal prompting for participation. The patient was agreeable to the cognitive evaluation, however, demonstrated limited participation throughout the evaluation. Language Eval: Auditory Comprehends Simple Yes/No Ques: Severe Follows 1-Step Commands: Severe Follows Complex Directions: Severe Follows General Conversations: Severe Language Eval: Verbal Language Completes Spontaneous Greeting: Functional Produces Auto, Serial Info: Severe Requests Basic Needs: Moderate States Basic Personal Info: Moderate Expresses Complex Ideas: Severe Objective Cognitive Domain Attention: Severe Memory: Severe Problem Solving: Severe Objective Impression The patient demonstrated moderate to severe cognitive impairments in the areas of attention, memory, orientation, and functional problem solving. A re- evaluation will occur on the subsequent date in attempts to decipher reduced cognitive function versus poor motivation and cooperation by the patient. Communication/Social Cognition Comprehension: 2 Expression: 1 Social Interaction: 1 Problem Solvin Memory: 1 Speech Patient Assess Expression of Ideas/Wants: Rarely/Never (1) Understanding [place] Content: Rarely/Never Understand (1) Brief Interview-Mental Status: No(pt is rarely/never understood) Memory/Recall Ability: Current season (No answer provided to question asked by clinician.), Location of own room (No answer provided to question asked by clinician.), Staff names and faces (No answer provided to question asked by clinician.), That he or she is in a hsp/hsp unit (No answer provided to question asked by clinician.), None of the above were recalled (No answer provided to question asked by clinician.) Speech Short Term Goals Short Term Goals Short Term Goals 1. The patient will participate in a full cognitive evaluation for appropriate, functional treatment goals. Time Frame-STG: Three Days Speech Copy Holder Goals [facility] Goals 1. The patient will demonstrate improved cognitive skills for increased function and safety with ADL's. Comprehension: 3 Expression: 3 Social Interaction: 4 Problem Solvin Memory: 3 Speech-Plan Treatment Plan Speech Therapy Treatment Plan: Continue Plan of Care Treatment Duration: Jul 04, 2016 # of days/week Four to Five Visits Per Week: Four to Five Minutes/Day (M-F): 30 Rehab Potential: Guarded Safety Risks/Education Teaching Recipient: Patient Teaching Methods: Discussion Response to Teaching: Reinforcement Needed Education Topics Provided: Plan of Care Time Speech Therapy Time In: 10:15 Speech Therapy Time Out: 10:30 Total Billed Time: 15 Billed Treatment Time 1, NARA FOSTER May 30, 2016 15:44
[2016-05-30 18:50] VITALS: BP 99/68
[2016-05-30] MEDS: ENOXAPARIN 30 MG/0.3 ML (LOVENOX) SYR SC SCH (20:43)
[2016-05-30] MEDS: AMITRIPTYLINE 50 MG (ELAVIL) TAB PO SCH (20:43)
[2016-05-30] MEDS ORDERED: KCL 20 MEQ TAB (K-DUR) PO ONE (20:45)
--- NOTE | 2016-05-30 20:46 | Individualized Plan of Care ---
Individualized Plan of Care Rehab Nursing IPOC Order Admission Date May 29, 2016 at 18:00 Current Orders Orders-MAHENDRA MCGILL MD Admission-Acute Rehab Unit (05/29/16 17:38) Vital Signs: Routine 08,16,00 (05/29/16 17:38) Social Service (05/29/16 17:38) Rehab Nursing Orders-Ipoc (05/29/16 17:38) Physical Therapy Rehab Orders (05/29/16 17:38) Occupational Therapy Rehab Ord (05/29/16 17:38) Speech Therapy Rehab Orders (05/29/16 17:38) Behavorial Health Consult (05/29/16 17:38) General/Regular (05/30/16 Breakfast) Turn And Reposition Q2HR (05/29/16 17:38) Intake & Output Shift Assessme 06,14,22 (05/29/16 17:38) Weight Bearing Status (05/29/16 17:38) Precautions (Aru) (05/29/16 17:38) Weekly Weight (Lbs) WEEK (05/29/16 17:38) Cbc With Automated Diff (05/30/16 06:00) Comprehensive Metabolic Panel (05/30/16 06:00) Dietary Consult (05/29/16 17:48) Prealbumin (05/30/16 08:49) Consult Physician (05/29/16 17:51) Consult Physician (05/29/16 17:52) Amitriptyline Tablet (Elavil Tablet) (05/29/16 21:00) Paroxetine Tablet (Paxil Tablet) (05/30/16 09:00) Hydrocodone/Apap 5/325 Tablet (Lortab 5 (05/29/16 18:00) Alprazolam Tablet (Xanax Tablet) (05/29/16 18:00) General/Regular (05/29/16 Breakfast) Code/Resuscitation (05/29/16 18:16) Accucheck Achs ACHS (05/29/16 19:57) Enoxaparin Injection (Lovenox Injection) (05/29/16 20:00) Hydrocodone/Apap 10/325 Tablet (Lortab 1 (05/29/16 20:15) C Difficile Ag + Toxin A/B. (05/30/16 03:45) Menthol/Zinc Oxide Ointment (Calmoseptin (05/30/16 00:30) Nursing Communication (Pt.Care (05/30/16 09:31) Patient Visit (05/30/16 ) Pt Eval High Complexity (05/30/16 ) Functional Activities, Ea 15 (05/30/16 ) Patient Visit (05/30/16 ) Speech Sound Lang Comp (05/30/16 ) Potassium Chloride (Tablet) (K Dur Table (05/30/16 20:45) PT IPOC Problem List: Activity Tolerance, Functional Strength, Safety, Balance, Gait, Transfer, Bed Mobility Treatment Plan: Continue Plan of Care Bed Mobility, Education, Functional Activity [place], Functional Strength, Group Therapy, Gait, Safety, Therapeutic Exercise, Transfers Treatment Duration: Jun 27, 2016 Visits Per Week: 10-15 Minutes/Day (M-F): 60-90 Minutes/Day (Sat/Gallego): prn OT IPOC Problems: Decreased Activ Tolerance, Decreased Safety Aware, Decreased UE Strength, Dependent Transfers, Impaired Bed Mobility, Impaired Cognition, Impaired Coordination, Impaired Funct Balance, Impaired I ADL's, Impaired Self- Care Skills, Restricted Funct UE ROM, Visual-Perceptual Deficit Plan of Care: ADL Retraining, Caregiver Training, Cognitive Retraining, Functional Mobility, UE Funct Exercise/Act, Visual/Perceptual Retrain Treatment Duration: Jul 04, 2016 Visits Per Week: 10-12 Minutes/Day (M-F): 60-90 Minutes/Day (Sat/Gallego): prn ST IPOC Speech Therapy Treatment Plan: Continue Plan of Care Treatment Duration: Jul 04, 2016 Visits Per Week: Four to Five Minutes/Day (M-F): 30 Physician IPOC Medical Issues being managed closely and that require the 24 hour availability of a physician:Hypoglycemia,underwight wound healing electrolyte abnormality Cognitive impairment dysphagia hx of substance abuse poor skin condition hypoalbuminemia,anemia, Medical Issues: DVT Prophylaxis, Falls Precautions, Fluid/Electrolyte/ Nutrition Balance, Infection Protection, Pain Management, Swallowing Precautions , Weight Bearing Precautions, Wound Care, Other (List) (as per above) Brief Synthesis of Preadmission Screen, Post-Admission Evaluation, and Therapy Evaluations:55 yo female with hx of substance abuse and old lacunar infarcts who 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 Medical Prognosis: fair Anticipated Length of Stay: 4 weeks Rehab Goals Modified Independent for adls and mobility skills at w/c level with good wound healing wt gain and improvement in dysphagia and nutrition and normalization of electrolytes.SW /case maker to f/u re patient obtaining a medical card as the patient currently has no medical insurance. Anticipated discharge destinat: Home with [facility] and spouse MAHENDRA MCGILL MD May 30, 2016 20:46
[2016-05-31] MEDS: HYDROcodone/APAP 10 MG/325 MG (LORTAB) TAB PO PRN ×4 (03:00→20:41)
[2016-05-31] MEDS: ALPRAZolam 0.25 MG (XANAX) TAB PO PRN ×3 (03:00→20:41)
[2016-05-31 06:00] VITALS: BP 106/66
[2016-05-31 06:45] LABS: BASOPHILS % (AUTO) 0 % (0-10); EOSINOPHILS # (AUTO) 0.1 10^3/uL (0.0-0.3); EOSINOPHILS % (AUTO) 1 % (0-10); LYMPHOCYTES # (AUTO) 1.2 X 10^3 (1.0-4.0); LYMPHOCYTES % (AUTO) 15 % (12-44); MEAN CORPUSCULAR HEMOGLOBIN 29 PG (25-34); MEAN CORPUSCULAR HGB CONC 32 G/DL (32-36); MEAN CORPUSCULAR VOLUME 90 FL (80-99); MEAN PLATELET VOLUME 11.1 FL (7.4-10.4); MONOCYTES # (AUTO) 0.8 X 10^3 (0.0-1.0); MONOCYTES % (AUTO) 9 % (0-12); NEUTROPHILS # (AUTO) 6.3 X 10^3 (1.8-7.8); NEUTROPHILS % (AUTO) 75 % (42-75); PLATELET COUNT 267 10^3/uL (130-400); RED CELL DISTRIBUTION WIDTH 18.5 % (10.0-14.5); WHITE BLOOD COUNT 8.4 10^3/uL (4.3-11.0)
[2016-05-31 07:20] LABS: ALANINE AMINOTRANSFERASE < 6 U/L (0-55); ALBUMIN 1.9 G/DL (3.2-4.5); ANION GAP 9 MMOL/L (5-14); ASPARTATE AMINO TRANSFERASE 13 U/L (5-34); BILIRUBIN,TOTAL 0.3 MG/DL (0.1-1.0); BLOOD UREA NITROGEN 15 MG/DL (7-18); BUN/CREATININE RATIO 27; CALCIUM 7.1 MG/DL (8.5-10.1); CARBON DIOXIDE 23 MMOL/L (21-32); CHLORIDE 111 MMOL/L (98-107); CREATININE SERUM 0.56 MG/DL (0.60-1.30); GFR ESTIMATED > 60; GLUCOSE 77 MG/DL (70-105); MAGNESIUM 1.1 MG/DL (1.8-2.4); POTASSIUM 3.8 MMOL/L (3.6-5.0); SODIUM 143 MMOL/L (135-145); TOTAL PROTEIN 4.6 G/DL (6.4-8.2)
[2016-05-31] MEDS: PARoxetine 10 MG (PAXIL) TAB PO SCH (07:48)
[2016-05-31] MEDS ORDERED: MAGNESIUM 1 GM/100 ML IVPB 100 ML IV SCH (09:00)
--- NOTE | 2016-05-31 09:07 | Progress Note (SOAP) ---
Subjective Subjective/Events-last exam patient states she's feeling okay. Anemia is worse. Monitoring it. Magnesium low. To receive magnesium IV and monitor Objective Exam Vital Signs Date Time Temp Pulse Resp B/P Pulse Ox O2 Delivery O2 Flow Rate FiO2 05/31/16 07:57 Room Air 05/31/16 06:00 98.9 92 22 106/66 94 Room Air 05/30/16 21:53 Room Air 05/30/16 18:50 96.6 85 22 99/68 93 Room Air 05/30/16 16:29 97.6 I & O 05/31/16 07:00 Intake Total 540 ml Output Total 1275 ml Balance -735 ml Capillary Refill : Greater Than 3 Seconds General Appearance: No Apparent Distress Thin Results Lab Laboratory Tests 05/31/16 06:04 Laboratory Tests 05/30/16 11:32: Glucometer 66L 05/30/16 21:01: Glucometer 79 05/31/16 06:04: Alanine Aminotransferase (ALT/SGPT) < 6, Albumin 1.9L, Alkaline Phosphatase 128 , Anion Gap 9, Aspartate Amino Transf (AST/SGOT) 13, BUN/Creatinine Ratio 27, Basophils # (Auto) 0.0, Basophils (%) (Auto) 0, Blood Urea Nitrogen 15, Calcium Level 7.1L, Carbon Dioxide Level 23, Chloride Level 111H, Creatinine 0.56L, Eosinophils # (Auto) 0.1, Eosinophils (%) (Auto) 1, Estimat Glomerular Filtration Rate > 60, Glucose Level 77, Hematocrit 24L, Hemoglobin 7.7L, Lymphocytes # (Auto) 1.2, Lymphocytes (%) (Auto) 15, Magnesium Level 1.1L, Mean Corpuscular Hemoglobin 29, Mean Corpuscular Hemoglobin Concent 32, Mean Corpuscular Volume 90, Mean Platelet Volume 11.1H, Monocytes # (Auto) 0.8, Monocytes (%) (Auto) 9, Neutrophils # (Auto) 6.3, Neutrophils (%) (Auto) 75, Platelet Count 267, Potassium Level 3.8, Red Blood Count 2.70L, Red Cell Distribution Width 18.5H, Sodium Level 143, Total Bilirubin 0.3, Total Protein 4.6L, White Blood Count 8.4 Microbiology 05/30/16 C. difficile DNA Amplification - Final, Complete 05/30/16 C. difficile GDH Antigen & Toxins - Final, Complete Assessment/Plan Assessment/Plan Assess & Plan/Chief Complaint fragile. Weakness. New-onset diabetes. Skin breakdown. . 05/31/16. . Weakness. New-onset diabetes. Hypomagnesemia. Anemia to monitor Diagnosis/Problems: Clinical Quality Measures DVT/VTE Risk/Contraindication: Risk Factor Score Per Nursin RFS Level Per Nursing on Admit: 4+=Very High IBRAHIMA PATTON DO May 31, 2016 09:07
--- NOTE | 2016-05-31 10:39 | Occupational Ther Daily Note ---
OT Current Status-Daily Note Subjective Pt lying in bed, PT present. PT/OT co-treated due to decrease static and dynamic sitting balance when completing ADLs then standing balance with bathing and dressing. Pt did agree to therapy. Pt is very fearful of transfers and standing tasks. Pt has decreased activity tolerance and stated she was tired and wanted to lay down throughout treatment. Mental Status/Objective Patient Orientation: Person Functional [place] Measure 0=Not Assessed/NA 4=Minimal Assistance 1=Total Assistance 5=Supervision or Setup 2=Maximal Assistance 6=Modified [place] 3=Moderate Assistance 7=Complete [place] Attachments: Olivarez Catheter ADL-Treatment PT worked on multiple transfers, sit to stands and bed mobility. OT worked on ADL sitting on EOB, BSC transfers and toileting. Pt required assist for sitting EOB while assist to direct where to bathe body on body. Pt inefficient with cleansing self, assist to cleanse effectively needed. Pt max A for transfers, very fearful. Pt required total assist for toileting and standing to cleanse self. Pt was able to cleanse fredrick area while lying in bed though inefficient and assist to cleanse thoroughly. Pt demonstrated slight R wrist extension and slight movement of R digits throughout therapy though unable to functionally use R UE. Pt mod A for donning shirt. Pt was handed oral swab and was able to cleanse mouth. Pt able to hold cup with assistance to drink and cues for swallowing strategies. Did not don pants due to incontinence of bowel while lying in bed, per nrsg. After therapy, pt propped on R side with pillow under back and L LE. Call light/phone in reach. Nrsg present in room. Functional [place] Measure 0=Not Assessed/NA 4=Minimal Assistance 1=Total Assistance 5=Supervision or Setup 2=Maximal Assistance 6=Modified [place] 3=Moderate Assistance 7=Complete IndependenceIRFPAI Quality Coding Scale 6 Independent with activity with or without an assistive device 5 Patient requires set up or clean up by helper. Patient completes activity by themselves 4 Supervision or touching assist (CGA). [place] provide cues , steadying assist 3 The helper provides less than half the effort to complete the activity 2 The helper provides more than half the effort to complete the activity 1 Dependent. The helper does all the effort to complete an activity 7 Patient refused to complete or attempt activity 9 The patient did not perform the activity before the current illness or injury 88 Not attempted due to Medical conditions or safety concerns Bathing (FIM): 2 Upper Body (FIM): 3 Toilet/Commode Transfer (FIM): 1 OT Short Term Goals Short Term Goals Time Frame: Jun 13, 2016 Eating(FIM): 5 Grooming(FIM): 4 Bathing(FIM): 3 Upper Body Dressing(FIM): 5 Lower Body Dressing(FIM): 4 Toileting(FIM): 3 Transfers (B,C,W/C) (FIM): 3 Toilet/Commode Transfer(FIM): 3 Shower Transfer(FIM): 3 Additional Short Term Goals: 1-Demonstrate ADL Tasks, 2-Verbalize Understanding , 3-ImproveStrength/[place] 1=Demonstrate adherence to instructed precautions during ADL tasks. 2=Patient will verbalize/demonstrate understanding of assistive devices/ modifications for ADL. 3=Patient will improve strength/tolerance for activity to enable patient to perform ADL's. OT Retail And Restaurant Associate Goals Retail And Restaurant Associate Goals Time Frame: Jul 04, 2016 Eating (FIM): 6 Eating (QC): 6 Oral Hygiene (QC): 6 Grooming(FIM): 6 Bathing(FIM): 5 Shower/Bathe Self (QC): 5 Upper Body Dressing(FIM): 5 Upper Body Dressing (QC): 5 Lower Body Dressing(FIM): 5 Lower Body Dressing (QC): 5 On/Off Footwear (QC): 5 Toileting(FIM): 6 Toileting Hygiene (QC): 6 Transfers (B,C,W/C) (FIM): 5 Toilet/Commode Transfer(FIM): 5 Toilet/Commode Transfer (QC): 5 Shower Transfer(FIM): 5 Comprehension(FIM): 3 Expression (FIM): 3 Social Interaction(FIM): 4 Problem Solving(FIM): 3 Memory(FIM): 3 Additional Goals: 1-Demonstrate ADL Tasks, 2-Verbalize Understanding, 3- ImproveStrength/Dalton 1=Demonstrate adherence to instructed precautions during ADL tasks. 2=Patient will verbalize/demonstrate understanding of assistive devices/ modifications for ADL. 3=Patient will improve strength/tolerance for activity to enable patient to perform ADL's. OT Education/Plan Discharge Recommendations Plan/Recommendations: Continue POC Treatment Plan/Plan of Care Patient would benefit from OT for education, treatment and training to promote independence in ADL's, mobility, safety and/or upper extremity function for ADL' s. Plan of Care: ADL Retraining, Caregiver Training, Cognitive Retraining, Functional Mobility, UE Funct Exercise/Act, Visual/Perceptual Retrain Treatment Duration: Jul 04, 2016 Visits Per Week: 10-12 Minutes/Day (M-F): 60-90 Minutes/Day (Sat/Gallego): prn Agreement: Yes Rehab Potential: Guarded Time/GCodes Start Time: 09:00 Stop Time: 10:00 Total Time Billed (hr/min): 60 Billed Treatment Time 1 visit-ADL 4 (60 min) PT/OT co-treat [id number] for 60 min DAVID CHRISTINE May 31, 2016 10:39
--- NOTE | 2016-05-31 11:12 | Physical Therapy Daily Note ---
PT Daily Note-Current Subjective Agreeable to PT but several times throughout treatment, requests to lie down, to rest, to be finished. Continued with much encouragement. Mental Status Patient Orientation: Person, Confused Transfers Functional [place] Measure 0=Not Assessed/NA 4=Minimal Assistance 1=Total Assistance 5=Supervision or Setup 2=Maximal Assistance 6=Modified [place] 3=Moderate Assistance 7=Complete IndependenceIRFPAI Quality Coding Scale 6 Independent with activity with or without an assistive device 5 Patient requires set up or clean up by helper. Patient completes activity by themselves 4 Supervision or touching assist (CGA). [place] provide cues , steadying assist 3 The helper provides less than half the effort to complete the activity 2 The helper provides more than half the effort to complete the activity 1 Dependent. The helper does all the effort to complete an activity 7 Patient refused to complete or attempt activity 9 The patient did not perform the activity before the current illness or injury 88 Not attempted due to Medical conditions or safety concerns Transfers (B, C, W/C) (FIM): 2 Scootin Rollin Roll Left to Right (QC): 3 Supine to/from Sit: 2 (assist with right LE and with trunk) Sit to/from Stand: 2 Bed to/from Chair: 2 Sup to from sit x 1 with max assist. Sit to stand multiple times during treatment to facilitate positional changes for fredrick care as well as SPT x 2 with max assist on/off the commode. Pt unable to perform SPT with FWW or come to full upright with FWW; requires a dance style transfer to transfer surfaces and to come to full standing on the right LE. [employer] OrthoWedge shoe in place with standing. Treatments Co treatment with OT for full hour. PT addressed seated static and dynamic balance with foot and right UE placement as well as engaging core musculature to maintain functional balance while OT addressed self care and ADL's. Pt required mod to SBA with seated balance. Also facilitated sit to stand transfers with PT addressing foot placement, right UE placement and sequencing whilst OT addressed use of the left UE for self care tasks. Important to work jointly to meet her significant needs and facilitate functional mobility with self care. Pt in bed post treatment with needs met, tilted to the right and right heel and UE elevated. Assessment Current Status: Fair Progress Pt benefits from co treatment due to the complexity of her weakness, lack of functional mobility and high need for cues. She is participatory and does follow cues. She is impulsive and has poor safety awareness; at times seated balance is very poor and requires constant supervision for safety with sitting up EOB. PT Short Term Goals Short Term Goals Time Frame: Jun 13, 2016 Transfers (B,C,W/C) (FIM): 3 Gait (FIM): 1 (hops only) Wheelchair (FIM): 4 Wheelchair distance (FIM): 3=150 ft PT Tie In Machine Operator Goals Tie In Machine Operator Goals PT Tie In Machine Operator Goals Time Frame: Jun 27, 2016 Transfers (B,C,W/C) (FIM): 6 Sit to Lying (QC): 6 Lying-Sitting on Side/Bed(QC): 6 Sit to Stand (QC): 6 Rollin Roll Left to Right (QC): 6 Chair/[id number] Xfer(QC): 6 Car Transfer (QC): 5 Does the Patient Walk: Yes Gait (FIM): 2 Gait distance (FIM): 1=up to 49 ft Distance: 10 ft hopping Walk 10 feet (QC): 4 Walk 10ft-Uneven Surface(QC): 88 Walk 50ft with 2 Turns (QC): 88 Walk 150 ft (QC): 88 Gait Level of Assist: 4 Gait Assistive Device: FWW Does the Pt use WC or Scooter?: Yes Wheelchair (FIM): 6 Wheelchair distance (FIM): 3=150 ft Wheelchair Level of Assist: 6 Wheel 50 feet with 2 turns (QC: 6 Stairs (FIM): 88 (usafe to attempt) 1 Step (curb) (QC): 88 4 Steps (QC): 88 12 Steps (QC): 88 Picking up an Object (QC): 88 (unsafe) PT Plan Problem List Problem List: Activity Tolerance, Functional Strength, Safety, Balance, Transfer, Bed Mobility Treatment/Plan Treatment Plan: Continue Plan of Care Treatment Plan: Bed Mobility, Education, Functional Activity [place], Functional Strength, Group Therapy, Gait, Safety, Therapeutic Exercise, Transfers Treatment Duration: Jun 27, 2016 Visits Per Week: 10-15 Minutes/Day (M-F): 60-90 Minutes/Day (Sat/Gallego): prn Safety Risks/Education Patient Education: Transfer Techniques, Safety Issues Teaching Recipient: Patient Teaching Methods: Demonstration, Discussion Response to Teaching: Reinforcement Needed Discharge Recommendations Plan Plan for pt to attend group this pm to facilitate social interaction, encourage upright activity out of room and in chair. Time/GCodes Time In: 900 Time Out: 1000 Total Billed Treatment Time: 60 Total Billed Treatment visit FA 60 Co treat with OT 9-10 DAVID AWAD PT May 31, 2016 11:12
--- NOTE | 2016-05-31 12:55 | Occupational Ther Daily Note ---
OT Current Status-Daily Note Subjective Pt sleeping in bed. Pt woke easily. Pt stated that she couldn't do anything. OT encouraged pt that she was able to. Pt agreed to therapy. Mental Status/Objective Patient Orientation: Person Functional [place] Measure 0=Not Assessed/NA 4=Minimal Assistance 1=Total Assistance 5=Supervision or Setup 2=Maximal Assistance 6=Modified [place] 3=Moderate Assistance 7=Complete [place] Attachments: Olivarez Catheter ADL-Treatment Pt able to grasp cup and bring to mouth for drink. Pt was incontinent 2x's of bowel. Pt able to assist to roll side to side with assist while dependent with cleansing buttocks. Pt will attempt to cleanse fredrick area though inefficient. Ointment applied to buttocks due to rash. Nrsg present in room. After therapy , pt lying in R side to relieve pressure on coccyx area. Call light/phone in reach. All needs met in room. Functional [place] Measure 0=Not Assessed/NA 4=Minimal Assistance 1=Total Assistance 5=Supervision or Setup 2=Maximal Assistance 6=Modified [place] 3=Moderate Assistance 7=Complete IndependenceIRFPAI Quality Coding Scale 6 Independent with activity with or without an assistive device 5 Patient requires set up or clean up by helper. Patient completes activity by themselves 4 Supervision or touching assist (CGA). [place] provide cues , steadying assist 3 The helper provides less than half the effort to complete the activity 2 The helper provides more than half the effort to complete the activity 1 Dependent. The helper does all the effort to complete an activity 7 Patient refused to complete or attempt activity 9 The patient did not perform the activity before the current illness or injury 88 Not attempted due to Medical conditions or safety concerns OT Short Term Goals Short Term Goals Time Frame: Jun 13, 2016 Eating(FIM): 5 Grooming(FIM): 4 Bathing(FIM): 3 Upper Body Dressing(FIM): 5 Lower Body Dressing(FIM): 4 Toileting(FIM): 3 Transfers (B,C,W/C) (FIM): 3 Toilet/Commode Transfer(FIM): 3 Shower Transfer(FIM): 3 Additional Short Term Goals: 1-Demonstrate ADL Tasks, 2-Verbalize Understanding , 3-ImproveStrength/[place] 1=Demonstrate adherence to instructed precautions during ADL tasks. 2=Patient will verbalize/demonstrate understanding of assistive devices/ modifications for ADL. 3=Patient will improve strength/tolerance for activity to enable patient to perform ADL's. OT Group Home Goals Group Home Goals Time Frame: Jul 04, 2016 Eating (FIM): 6 Eating (QC): 6 Oral Hygiene (QC): 6 Grooming(FIM): 6 Bathing(FIM): 5 Shower/Bathe Self (QC): 5 Upper Body Dressing(FIM): 5 Upper Body Dressing (QC): 5 Lower Body Dressing(FIM): 5 Lower Body Dressing (QC): 5 On/Off Footwear (QC): 5 Toileting(FIM): 6 Toileting Hygiene (QC): 6 Transfers (B,C,W/C) (FIM): 5 Toilet/Commode Transfer(FIM): 5 Toilet/Commode Transfer (QC): 5 Shower Transfer(FIM): 5 Comprehension(FIM): 3 Expression (FIM): 3 Social Interaction(FIM): 4 Problem Solving(FIM): 3 Memory(FIM): 3 Additional Goals: 1-Demonstrate ADL Tasks, 2-Verbalize Understanding, 3- ImproveStrength/[place]alton 1=Demonstrate adherence to instructed precautions during ADL tasks. 2=Patient will verbalize/demonstrate understanding of assistive devices/ modifications for ADL. 3=Patient will improve strength/tolerance for activity to enable patient to perform ADL's. OT Education/Plan Discharge Recommendations Plan/Recommendations: Continue POC Treatment Plan/Plan of Care Patient would benefit from OT for education, treatment and training to promote independence in ADL's, mobility, safety and/or upper extremity function for ADL' s. Plan of Care: ADL Retraining, Caregiver Training, Cognitive Retraining, Functional Mobility, UE Funct Exercise/Act, Visual/Perceptual Retrain Treatment Duration: Jul 04, 2016 Visits Per Week: 10-12 Minutes/Day (M-F): 60-90 Minutes/Day (Sat/Gallego): prn Agreement: Yes Rehab Potential: Guarded Time/GCodes Start Time: 12:15 Stop Time: 12:45 Total Time Billed (hr/min): 30 Billed Treatment Time 1 visit-ADL 2 (30 min) DAVID CHRISTINE May 31, 2016 12:55
[2016-05-31] MEDS: MAGNESIUM OXIDE (MAG-OX)400 MG TAB PO SCH ×2 (13:03→20:29)
--- NOTE | 2016-05-31 14:59 | ST Dysphagia Evaluation ---
Speech Evaluation-General Medical Diagnosis ARF, Rhabdo, amputation Onset Date: May 30, 2016 Therapy Diagnosis Therapy Diagnosis: Moderate Oropharyngeal Dysphagai Precautions Precautions: Aspiration Precautions/Isolations: Aspiration, Fall Prevention, Standard Precautions, Pressure Ulcer Referral Referring Physician: Dr. Lopez Reason for Referral: Evaluation/Treatment Clinical Bedside Swallowing Evaluation Medical History Pertinent Medical History: COPD, DM, Smoking Reviewed History: Yes Social History Current Living Status: Spouse Speech PLF/Current-Dysphagia Prior Level of Function The patient was unable to provide prior level of function information to the clinician. The patient is currently receiving puree consistencies with honey- thick liquids, however, she is unable to state the rationale or length of the diet. Subjective The patient was recently admitted to the [facility] following an above knee amputation. The patient was asleep upon entrance and required moderate, consistent verbal prompting by the clinician for appropriate alertness levels and participation. The patient was agreeable to the dysphagia evaluation. Cognitive Status Patient Orientation: Person, Confused Oral Motor Skills Dentition: Edentalous Current Food Consistancy: Pureed, Honey Liquids Ability to Follow Directions: Poor Oral Expression Ability: Moderate Impairment Voice Voice Phonatory-Based Quality: Breathy, Weak Voice Pitch: Mildly High Voice Loudness: Severely Soft/Quiet Face Facial Symmetry: Asymmetrical (Mild left facial droop was present.) Oral-Facial Assessment Oral-Facial Dentition: Normal Labial Seal Description: Droops Left, Weak (L>R) Smile: Droops Left Puff Cheeks: Reduced Strength (L>R) Lingual Protrusion: Normal Lingual ROM: Abnormal (Reduced bilaterally.) Lingual Strength: Abnormal (Moderate weakness noted bilaterally.) Pharynx Velopharyngeal Move.: Normal Volitional Dry Swallow: Yes Dysphagia Evaluation Consistencies Presented: [place] Thick Liquid, Honey Thick Liquid, Pureed Oral Phase: Oral Residue, Reduced Oral Transit The patient demonstrated increased posterior transfer of puree bolus material, as well as, mild lingual surface residue. Pharyngeal Phase: Multiple Swallow Attempts, Delayed Laryngeal Elevation, Delayed Swallow The patient demonstrated reduced hyo-laryngeal elevation, as well as, a delayed swallow response with all consistencies tested. Funct. Velo/Pharyngeal Symptom: Cough After Swallow - [place]-Thick Liquid (via teaspoon): The patient demonstrated an immediate throat clear following two of two teaspoon trials of thin liquid. - Honey-Thick Liquid (via teaspoon and cup sip): No signs/symptoms of aspiration were demonstrated with multiple teaspoon and cup sip trials of honey- thick liquid. - Puree: No signs/symptoms of aspiration were demonstrated with multiple trials of puree. * Solid consistencies were deferred secondary to the patient's edentulous state and reduced alertness level. Dietary Recommendations: Pureed Liquid Recommendations: Honey Consistancy Swallowing Precautions: No Straw, Small Bites and Sips, Sitting 90 Degrees 30 Post Intake Dysphagia Evaluation Summary The patient demonstrated moderate oropharyngeal dysphagia characterized by reduced lingual strength and coordination, reduced hyo-laryngeal excursion, and reduced airway protection in the presence of bolus material. Barriers to Learning Cognition, Motivation, Participation Speech Short Term Goals Short Term Goals Short Term Goals 1. The patient will participate in a full cognitive evaluation for appropriate, functional treatment goals. 2. The patient will tolerate bolus trials of the least restrictive consistency without signs/symptoms of aspiration. 3. Patient will demonstrate swallowing strategies with 80% accuracy, independently. Time Frame-STG: One Week Speech Music Teacher Goals Music Teacher Goals 1. The patient will demonstrate improved cognitive skills for increased function and safety with ADL's. 2. The patient will tolerate the least restrictive consistency diet without signs/symptoms of aspiration. Time Frame: Four Weeks Comprehension: 3 Expression: 3 Social Interaction: 4 Problem Solvin Memory: 3 Speech-Plan Treatment Plan Speech Therapy Treatment Plan: Continue Plan of Care Treatment Duration: Jul 04, 2016 # of days/week Four to five Visits Per Week: Four to Five Minutes/Day (M-F): 30 Rehab Potential: Guarded Safety Risks/Education Teaching Recipient: Patient Teaching Methods: Discussion Response to Teaching: Verbalize Understanding, Reinforcement Needed Education Topics Provided: Results, Recommendations, Swallowing Strategies Time Speech Therapy Time In: 08:30 Speech Therapy Time Out: 09:00 Total Billed Time: 30 Billed Treatment Time TOMÁS Plascencia ELIZABETH May 31, 2016 14:59
[2016-05-31] MEDS: DIPHENOXYLATE/ATROPINE 2.5MG/0.025MG (LOMOTIL) TAB PO PRN (15:40)
[2016-05-31 16:53] VITALS: BP 108/72
[2016-05-31] MEDS: MENTHOL/ZINC OXIDE (CALMOSEPTINE) 113 GM TUBE TOP PRN ×2 (17:39→20:28)
[2016-05-31] MEDS: ENOXAPARIN 30 MG/0.3 ML (LOVENOX) SYR SC SCH (20:28)
[2016-05-31] MEDS: AMITRIPTYLINE 50 MG (ELAVIL) TAB PO SCH (20:29)
[2016-06-01] MEDS: HYDROcodone/APAP 10 MG/325 MG (LORTAB) TAB PO PRN ×4 (04:54→19:55)
[2016-06-01 06:03] VITALS: BP 106/69
[2016-06-01 07:23] LABS: MEAN PLATELET VOLUME 11.4 FL (7.4-10.4); RED BLOOD COUNT 2.88 10^6/uL (4.35-5.85); RED CELL DISTRIBUTION WIDTH 18.6 % (10.0-14.5); WHITE BLOOD COUNT 7.9 10^3/uL (4.3-11.0)
[2016-06-01] MEDS: ALPRAZolam 0.25 MG (XANAX) TAB PO PRN ×3 (08:24→17:38)
[2016-06-01] MEDS: MAGNESIUM OXIDE (MAG-OX)400 MG TAB PO SCH ×3 (08:24→20:00)
[2016-06-01] MEDS: PARoxetine 10 MG (PAXIL) TAB PO SCH (08:27)
--- NOTE | 2016-06-01 08:58 | Physical Therapy Daily Note ---
PT Daily Note-Current Subjective Pt hollers out as therapist entering. Pt has been hollering all morning. Pt does recognize this therapist. "I want to get out of here" "When can I go home ?". Transfers Functional [place] Measure 0=Not Assessed/NA 4=Minimal Assistance 1=Total Assistance 5=Supervision or Setup 2=Maximal Assistance 6=Modified [place] 3=Moderate Assistance 7=Complete IndependenceIRFPAI Quality Coding Scale 6 Independent with activity with or without an assistive device 5 Patient requires set up or clean up by helper. Patient completes activity by themselves 4 Supervision or touching assist (CGA). [place] provide cues , steadying assist 3 The helper provides less than half the effort to complete the activity 2 The helper provides more than half the effort to complete the activity 1 Dependent. The helper does all the effort to complete an activity 7 Patient refused to complete or attempt activity 9 The patient did not perform the activity before the current illness or injury 88 Not attempted due to Medical conditions or safety concerns Treatments Assisted pt eat a few more bites of food. Pt then transferred sup to sit EOB with max assist but pt was participatory in moving R LE and using left UE. Sat EOB x 10 minutes with mod assist to maintain balance--pt now on an air mattress which is difficulty to sit on. Sat EOB and worked on trunk control. Pt returned to supine and worked on rolling while fredrick care performed. Pt needs mod assist to roll left and right and heavy cues to sequence and to stay on task. Pt in bed post treatment with needs met. Assessment Current Status: Fair Progress Impulsive. Askes repeatedly to lie down while sitting up. Seems confused primarily. She does recognize me but then talks tangentially about various things and often just calls or hollers out. PT Short Term Goals Short Term Goals Time Frame: Jun 13, 2016 Transfers (B,C,W/C) (FIM): 3 Gait (FIM): 1 (hops only) Wheelchair (FIM): 4 Wheelchair distance (FIM): 3=150 ft PT Care Home Goals Care Home Goals PT Dialer Goals Time Frame: Jun 27, 2016 Transfers (B,C,W/C) (FIM): 6 Sit to Lying (QC): 6 Lying-Sitting on Side/Bed(QC): 6 Sit to Stand (QC): 6 Rollin Roll Left to Right (QC): 6 Chair/Bbm-pd-Wajyn Xfer(QC): 6 Car Transfer (QC): 5 Does the Patient Walk: Yes Gait (FIM): 2 Gait distance (FIM): 1=up to 49 ft Distance: 10 ft hopping Walk 10 feet (QC): 4 Walk 10ft-Uneven Surface(QC): 88 Walk 50ft with 2 Turns (QC): 88 Walk 150 ft (QC): 88 Gait Level of Assist: 4 Gait Assistive Device: FWW Does the Pt use WC or Scooter?: Yes Wheelchair (FIM): 6 Wheelchair distance (FIM): 3=150 ft Wheelchair Level of Assist: 6 Wheel 50 feet with 2 turns (QC: 6 Stairs (FIM): 88 (usafe to attempt) 1 Step (curb) (QC): 88 4 Steps (QC): 88 12 Steps (QC): 88 Picking up an Object (QC): 88 (unsafe) PT Plan Problem List Problem List: Activity Tolerance, Functional Strength, Safety, Balance, Transfer, Bed Mobility Treatment/Plan Treatment Plan: Continue Plan of Care Treatment Plan: Bed Mobility, Education, Functional Activity [place], Functional Strength, Group Therapy, Gait, Safety, Therapeutic Exercise, Transfers Treatment Duration: Jun 27, 2016 Visits Per Week: 10-15 Minutes/Day (M-F): 60-90 Minutes/Day (Sat/Gallego): prn Safety Risks/Education EDucted pt on importance of therapy and participating with therapy and initiating tasks on her own. Verbalizes with an "OK" but then says she wants to stop. Time/GCodes Time In: 830 Time Out: 850 Total Billed Treatment Time: 20 Total Billed Treatment visit FA 20 DAVID AWAD PT Jun 01, 2016 08:58
[2016-06-01] MEDS ORDERED: FUROSEMIDE 40 MG (LASIX) TAB PO ONE (14:30)
--- NOTE | 2016-06-01 14:54 | Diagnostic Imaging Report ---
INDICATION: Short of air. FINDINGS: Upright chest shows normal heart size and vascularity. Changes of old granulomatous disease including density seen in the right suprahilar region. No suspicious mass or infiltrate is seen. There is no effusion or pneumothorax. There is no change from 05/04/16. Exam is also similar to a prior study from 09/28/07. IMPRESSION: No acute abnormality is seen. Dictated by: Dictated on workstation # [id number]
[2016-06-01 16:50] LABS: ALANINE AMINOTRANSFERASE 6 U/L (0-55); ALBUMIN 1.9 G/DL (3.2-4.5); ANION GAP 12 MMOL/L (5-14); ASPARTATE AMINO TRANSFERASE 18 U/L (5-34); BILIRUBIN,TOTAL 0.3 MG/DL (0.1-1.0); BLOOD UREA NITROGEN 14 MG/DL (7-18); BUN/CREATININE RATIO 24; CALCIUM 7.3 MG/DL (8.5-10.1); CARBON DIOXIDE 20 MMOL/L (21-32); CHLORIDE 108 MMOL/L (98-107); CREATININE SERUM 0.58 MG/DL (0.60-1.30); GFR ESTIMATED > 60; GLUCOSE 87 MG/DL (70-105); POTASSIUM 4.3 MMOL/L (3.6-5.0); SODIUM 140 MMOL/L (135-145)
[2016-06-01 18:53] VITALS: BP 108/72
[2016-06-01] MEDS: ENOXAPARIN 30 MG/0.3 ML (LOVENOX) SYR SC SCH (19:55)
[2016-06-01] MEDS: AMITRIPTYLINE 50 MG (ELAVIL) TAB PO SCH (20:00)
[2016-06-02 04:45] VITALS: BP 99/65
[2016-06-02] MEDS: PARoxetine 10 MG (PAXIL) TAB PO SCH (08:04)
[2016-06-02] MEDS: ALPRAZolam 0.25 MG (XANAX) TAB PO PRN ×2 (08:05→21:36)
[2016-06-02] MEDS: MAGNESIUM OXIDE (MAG-OX)400 MG TAB PO SCH ×3 (08:05→20:46)
[2016-06-02] MEDS: HYDROcodone/APAP 10 MG/325 MG (LORTAB) TAB PO PRN ×3 (08:06→21:36)
[2016-06-02] MEDS: MENTHOL/ZINC OXIDE (CALMOSEPTINE) 113 GM TUBE TOP PRN ×2 (08:10→13:20)
[2016-06-02] MEDS ORDERED: LORazepam 1 MG (ATIVAN) TAB PO ONE (13:00)
[2016-06-02] MEDS: DIPHENOXYLATE/ATROPINE 2.5MG/0.025MG (LOMOTIL) TAB PO PRN (14:34)
--- NOTE | 2016-06-02 16:08 | Wound Care Progress Note ---
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 Has pain in sacral area, R foot, and L lateral thigh. Poor appetite. PMH -- Multi-decade history of methamphetamine abuse, past stroke with R sided weakness. Recent sepsis with profound hypotension, ischemic gangrene and amputations, as noted. All: None known. PFSH: Lives with spouse, previously independent. Review of Systems General: No Chills, No Fatigue HEENT: Head Aches Pulmonary: No Dyspnea, Cough Cardiovascular: No: Chest Pain, Edema Gastrointestinal: : Abdominal Pain: Other (Incontinence of stool.)No: Nausea Genitourinary: Other (Olivarez catheter.) Musculoskeletal: : leg pain Neurological: : Weakness (R arm.) Integumentary -- Healing wounds of L AKA, R 1-4 toes, sacral pressure ulcer. Patient shifts off of side when positioned to off-load sacral ulcer. Psych-- anxious, with choreoathetoid movements. Objective Exam Last Set of Vital Signs Vital Signs Date Time Temp Pulse Resp B/P Pulse Ox O2 Delivery O2 Flow Rate FiO2 06/02/16 09:00 Room Air 06/02/16 04:45 97.5 92 16 99/65 97 2.50 Capillary Refill : Greater Than 3 Seconds I&O Intake and Output 06/02/16 00:00 Intake Total 900 ml Output Total 2260 ml Balance -1360 ml Intake Oral 900 ml Output Urine Total 2260 ml # Bowel Movements 9 General: Alert, No Acute Distress HEENT: Atraumatic Neck: No JVD Lungs: Clear to Auscultation, Normal Air Movement Heart: Regular Rate, No Murmurs Abdomen: Normal Bowel Sounds, Soft Extremities: Other (L AKA with healing, intact incision. Plapable R DP pulse. ) Skin: Other (Sacral wound: 2.5 x 4.8 x 0.6 cm; base 75% slough, 25% granulation , mod. thin, cormier drainage. R 3rd toe: 2.3 x 1.7 x 0.2 cm; 100% black eschar, no drainage.) Results Lab Laboratory Tests 06/01/16 16:19: Glucometer 106 06/01/16 20:53: Glucometer 106 06/02/16 06:17: Glucometer 94 06/02/16 11:49: Glucometer 107 Microbiology 05/30/16 C. difficile DNA Amplification - Final, Complete 05/30/16 C. difficile GDH Antigen & Toxins - Final, Complete Hgb 8.2 Radiology CXR -- no acute changes. Assessment/Plan Assessment/Plan Assessment/Plan 1. Pressure ulcer, sacrum, unstageable. 2. Malnutrition. 3. Amputation, L AKA, R 1-4 toes, gangrene. 4. Residual ischemic wound,s/p amputation of R 3rd toe. 5. Hx of methamphetamine abuse. 6. Stroke with R sided weakness. Plan: Silver alginate dressings to sacrum, frequent repositioning, BRANDI mattress. Betadine to amputation sites. MILVIA OKEEFE MD Jun 02, 2016 16:08
[2016-06-02 18:40] VITALS: BP 86/54
[2016-06-02] MEDS: AMITRIPTYLINE 50 MG (ELAVIL) TAB PO SCH (20:46)
[2016-06-02] MEDS: ENOXAPARIN 30 MG/0.3 ML (LOVENOX) SYR SC SCH (20:46)
[2016-06-03 06:00] VITALS: BP 97/62
[2016-06-03] MEDS: HYDROcodone/APAP 10 MG/325 MG (LORTAB) TAB PO PRN (06:50)
[2016-06-03] MEDS: MAGNESIUM OXIDE (MAG-OX)400 MG TAB PO SCH ×3 (08:14→20:20)
[2016-06-03] MEDS: PARoxetine 10 MG (PAXIL) TAB PO SCH (08:14)
[2016-06-03] MEDS: ALPRAZolam 0.25 MG (XANAX) TAB PO PRN ×2 (08:14→16:32)
--- NOTE | 2016-06-03 08:21 | Progress Note (SOAP) ---
Subjective Subjective/Events-last exam patient having anxiety and pain Magnesium getting higher. Hemoglobin and hematocrit stable Objective Exam Vital Signs Date Time Temp Pulse Resp B/P Pulse Ox O2 Delivery O2 Flow Rate FiO2 06/03/16 07:20 98.0 06/03/16 06:00 98.0 92 16 97/62 97 Room Air 06/02/16 21:36 99.9 06/02/16 21:00 Room Air 06/02/16 20:46 99.9 06/02/16 19:40 2.00 06/02/16 18:40 99.9 91 20 86/54 92 Nasal Cannula 2.00 06/02/16 09:00 Room Air I & O 06/03/16 07:00 Intake Total 600 ml Output Total 850 ml Balance -250 ml Capillary Refill : Greater Than 3 Seconds General Appearance: Thin Other (fragile) HEENT: Normal ENT Inspection Neck: Normal Inspection Respiratory: Chest Non Tender No Accessory Muscle Use No Respiratory Distress Cardiovascular: Regular Rate, Rhythm No Murmur Results Lab Laboratory Tests 06/02/16 11:49: Glucometer 107 06/02/16 16:09: Glucometer 100 06/02/16 21:15: Glucometer 99 Microbiology 05/30/16 C. difficile DNA Amplification - Final, Complete 05/30/16 C. difficile GDH Antigen & Toxins - Final, Complete Assessment/Plan Assessment/Plan Assess & Plan/Chief Complaint fragile. Weakness. New-onset diabetes. Skin breakdown. . 05/31/16. . Weakness. New-onset diabetes. Hypomagnesemia. Anemia to monitor. . 06/03/16. Patient anxious. Patient complaining of pain. Patient fragile. Weakness. Diabetes area Skin breakdown Diagnosis/Problems: Clinical Quality Measures DVT/VTE Risk/Contraindication: Risk Factor Score Per Nursin RFS Level Per Nursing on Admit: 4+=Very High IBRAHIMA PATTON DO Jun 03, 2016 08:21
[2016-06-03] MEDS: POVIDONE (BETADINE) 10% SOLN 240 ML BTL TOP SCH (10:00)
--- NOTE | 2016-06-03 10:15 | Occupational Ther Daily Note ---
OT Current Status-Daily Note Subjective Pt. moans and reports pain throughout treatment. However, unable to state a specific place that she is hurting, or pain number. Pt. has had pain medication. Appearance Pt. in bed. Moaning when OT walks in room. Does not state specific reason. Has difficulty following cues. Mental Status/Objective Patient Orientation: Unable to Assess Functional [place] Measure 0=Not Assessed/NA 4=Minimal Assistance 1=Total Assistance 5=Supervision or Setup 2=Maximal Assistance 6=Modified [place] 3=Moderate Assistance 7=Complete [place] ADL-Treatment Functional [place] Measure 0=Not Assessed/NA 4=Minimal Assistance 1=Total Assistance 5=Supervision or Setup 2=Maximal Assistance 6=Modified [place] 3=Moderate Assistance 7=Complete IndependenceIRFPAI Quality Coding Scale 6 Independent with activity with or without an assistive device 5 Patient requires set up or clean up by helper. Patient completes activity by themselves 4 Supervision or touching assist (CGA). [place] provide cues , steadying assist 3 The helper provides less than half the effort to complete the activity 2 The helper provides more than half the effort to complete the activity 1 Dependent. The helper does all the effort to complete an activity 7 Patient refused to complete or attempt activity 9 The patient did not perform the activity before the current illness or injury 88 Not attempted due to Medical conditions or safety concerns Toileting Hygiene (QC): 2 Lower Body Dressing (FIM): 1 (Pt. is dependent with LE dressing. Requires mod x 2 for rolling in bed, donning brief and pants, and pulling them over hips.) On/Off Footwear (QC): 1 (Dependent to don wedge shoe.) Toileting (FIM): 1 (Pt. incontinent of bowel in bed. Required dependent assist to cleanse self and put on new brief.) Transfers (B, C, W/C) (FIM): 2 (Max assist for supine-sit and pivot transfer from bed to chair/chair to bed.) OT/PT co-treated this date. Pt. is somewhat confused and has difficulty staying on task. Noted pt. incontinent of bowel upon entering room. PT facilitated rolling in bed while OT cleansed fredrick area and assisted with donning clothing. Pt. begins to yell out any time that she is asked to move. Therapy will facilitate moving, but then pt. is yells again. Explained to pt. multiple times importance of therapy and of movement to get stronger. Transferred to side of bed with max assist. Required min assist for balance from behind from PT while OT positioned wheelchair. Completed sit-stand transfer with max assist needed to stand and pivot. Went to therapy gym. Practiced standing at parallel bars. Note that pt. has emerging movement in right hand and wrist. Will still hold right hand with left hand, but overall is able to facilitate movement on her own. PT sat on chair in front and initiated sit-stand with right knee blocked while OT facilitate hand placement ( right hand) on parallel bars and glute muscles to hold her upright. Stood 3 times with large rest break in between. Pt. begins to immediately yell out, "let me sit, let me sit!" Pt. is encouraged to do more for self. Does not seem to understand importance of transfers. Went back to room and transferred back to bed. All needs met in bed. Education OT Patient Education: Correct positioning, Exercise program, Modified ADL techniques, Progress toward Goal/Update tx plan, Purpose of tx/functional activities, Reviewed precautions, Rehab process, Transfer techniques Teaching Recipient: Patient Teaching Methods: Demonstration, Discussion Response to Teaching: Verbalize Understanding, Return Demonstration OT Short Term Goals Short Term Goals Time Frame: Jun 13, 2016 Eating(FIM): 5 Grooming(FIM): 4 Bathing(FIM): 3 Upper Body Dressing(FIM): 5 Lower Body Dressing(FIM): 4 Toileting(FIM): 3 Transfers (B,C,W/C) (FIM): 3 Toilet/Commode Transfer(FIM): 3 Shower Transfer(FIM): 3 Additional Short Term Goals: 1-Demonstrate ADL Tasks, 2-Verbalize Understanding , 3-ImproveStrength/[place] 1=Demonstrate adherence to instructed precautions during ADL tasks. 2=Patient will verbalize/demonstrate understanding of assistive devices/ modifications for ADL. 3=Patient will improve strength/tolerance for activity to enable patient to perform ADL's. OT Lead Clinical Research Coordinator Goals Lead Clinical Research Coordinator Goals Time Frame: Jul 04, 2016 Eating (FIM): 6 Eating (QC): 6 Oral Hygiene (QC): 6 Grooming(FIM): 6 Bathing(FIM): 5 Shower/Bathe Self (QC): 5 Upper Body Dressing(FIM): 5 Upper Body Dressing (QC): 5 Lower Body Dressing(FIM): 5 Lower Body Dressing (QC): 5 On/Off Footwear (QC): 5 Toileting(FIM): 6 Toileting Hygiene (QC): 6 Transfers (B,C,W/C) (FIM): 5 Toilet/Commode Transfer(FIM): 5 Toilet/Commode Transfer (QC): 5 Shower Transfer(FIM): 5 Comprehension(FIM): 3 Expression (FIM): 3 Social Interaction(FIM): 4 Problem Solving(FIM): 3 Memory(FIM): 3 Additional Goals: 1-Demonstrate ADL Tasks, 2-Verbalize Understanding, 3- ImproveStrength/[place] 1=Demonstrate adherence to instructed precautions during ADL tasks. 2=Patient will verbalize/demonstrate understanding of assistive devices/ modifications for ADL. 3=Patient will improve strength/tolerance for activity to enable patient to perform ADL's. OT Education/Plan Problem List/Assessment Assessment: Decreased Activ Tolerance, Decreased Safety Aware, Decreased UE Strength, Dependent Transfers, Impaired Bed Mobility, Impaired Cognition, Impaired Coordination, Impaired Funct Balance, Impaired I ADL's, Impaired Self- Care Skills, Restricted Funct UE ROM Discharge Recommendations Plan/Recommendations: Continue POC Therapy D/C Recommendations: 24 hr Supervision Treatment Plan/Plan of Care Treatment,Training & Education: Yes Patient would benefit from OT for education, treatment and training to promote independence in ADL's, mobility, safety and/or upper extremity function for ADL' s. Plan of Care: ADL Retraining, Caregiver Training, Cognitive Retraining, Functional Mobility, UE Funct Exercise/Act, Visual/Perceptual Retrain Treatment Duration: Jul 04, 2016 Visits Per Week: 10-12 Minutes/Day (M-F): 60-90 Minutes/Day (Sat/Gallego): prn Agreement: Yes Rehab Potential: Guarded Time/GCodes Start Time: 09:00 Stop Time: 10:00 Total Time Billed (hr/min): 60 Billed Treatment Time 1, FA x 4 MAURICE RAMOS OT Jun 03, 2016 10:14
--- NOTE | 2016-06-03 11:56 | Physical Therapy Daily Note ---
PT Daily Note-Current Subjective Patient in bed pre tx, is reluctant to participate, needs encouragement. Will be co-treating with OT due to poor patient mobility, sitting and standing balance, and weakness. Patient complained of pain on bottom but did not rate. Appearance Patient BTB post tx with nurse call, phone, tray, all needs met. Transfers Functional [place] Measure 0=Not Assessed/NA 4=Minimal Assistance 1=Total Assistance 5=Supervision or Setup 2=Maximal Assistance 6=Modified [place] 3=Moderate Assistance 7=Complete IndependenceIRFPAI Quality Coding Scale 6 Independent with activity with or without an assistive device 5 Patient requires set up or clean up by helper. Patient completes activity by themselves 4 Supervision or touching assist (CGA). [place] provide cues , steadying assist 3 The helper provides less than half the effort to complete the activity 2 The helper provides more than half the effort to complete the activity 1 Dependent. The helper does all the effort to complete an activity 7 Patient refused to complete or attempt activity 9 The patient did not perform the activity before the current illness or injury 88 Not attempted due to Medical conditions or safety concerns Transfers (B, C, W/C) (FIM): 1 Scootin Rollin Supine to/from Sit: 1 Sit to/from Stand: 3 Bed to/from Chair: 3 Treatments Patient had been incontinent of BM pre tx and she needed cleaned which OT performed while PT helped patient with rolling, patient was then dressed and got a brief on. Patient was then transferred to a wheelchair with both PT and OT. Patient often resists movement and will yell out and needs much encouragement. Patient was then taken to the gym where she stood in the parallel bars x3 with PT assist and OT assist for RUE facilitation. Patient was then taken back to her room and transferred back to bed. Assessment Current Status: Poor Progress no change in mobility, poor motivation PT Short Term Goals Short Term Goals Time Frame: Jun 13, 2016 Transfers (B,C,W/C) (FIM): 3 Gait (FIM): 1 (hops only) Wheelchair (FIM): 4 Wheelchair distance (FIM): 3=150 ft PT Detention Goals Bottle Washer Machine Goals PT Detention Goals Time Frame: Jun 27, 2016 Transfers (B,C,W/C) (FIM): 6 Sit to Lying (QC): 6 Lying-Sitting on Side/Bed(QC): 6 Sit to Stand (QC): 6 Rollin Roll Left to Right (QC): 6 Chair/Lja-qv-Mityt Xfer(QC): 6 Car Transfer (QC): 5 Does the Patient Walk: Yes Gait (FIM): 2 Gait distance (FIM): 1=up to 49 ft Distance: 10 ft hopping Walk 10 feet (QC): 4 Walk 10ft-Uneven Surface(QC): 88 Walk 50ft with 2 Turns (QC): 88 Walk 150 ft (QC): 88 Gait Level of Assist: 4 Gait Assistive Device: FWW Does the Pt use WC or Scooter?: Yes Wheelchair (FIM): 6 Wheelchair distance (FIM): 3=150 ft Wheelchair Level of Assist: 6 Wheel 50 feet with 2 turns (QC: 6 Stairs (FIM): 88 (usafe to attempt) 1 Step (curb) (QC): 88 4 Steps (QC): 88 12 Steps (QC): 88 Picking up an Object (QC): 88 (unsafe) PT Plan Problem List Problem List: Activity Tolerance, Functional Strength, Safety, Balance, Gait, Transfer, Bed Mobility, ROM Treatment/Plan Treatment Plan: Continue Plan of Care Treatment Plan: Bed Mobility, Education, Functional Activity [place], Functional Strength, Group Therapy, Gait, Safety, Therapeutic Exercise, Transfers Treatment Duration: Jun 27, 2016 Visits Per Week: 10-15 Minutes/Day (M-F): 60-90 Minutes/Day (Sat/Gallego): prn Safety Risks/Education Patient Education: Transfer Techniques, Correct Positioning, Safety Issues Teaching Recipient: Patient Teaching Methods: Demonstration, Discussion Response to Teaching: Reinforcement Needed Time/GCodes Time In: 900 Time Out: 1000 Total Billed Treatment Time: 60 Total Billed Treatment 1 visit FA 60 min co-treated with OT for the whole 60 min ALONSO FARIA PT Jun 03, 2016 11:56
[2016-06-03] MEDS: DIPHENOXYLATE/ATROPINE 2.5MG/0.025MG (LOMOTIL) TAB PO PRN ×2 (14:07→20:25)
--- NOTE | 2016-06-03 14:54 | Speech Therapy Daily Note ---
Speech Daily Progress Note Subjective The patient was seated upright in bed upon entrance. The patient greeted the clinician and was agreeable to cognitive and dysphagia therapy on this date. Regardless of the patient verbalizing her agreement, maximum verbal prompts and encouragement were required for completion of tasks. Objective Dysphagia Re-evaluation: The patient's swallowing function was reassessed with the items she had present on her breakfast tray (thickened liquid-nectar, cream of wheat, pureed fruit). Additionally, honey-thick liquids were provided by the clinician. - [place]-Thick Liquid: The patient demonstrated a delayed cough following four of four cup sips of nectar-thick liquid. - Honey-Thick Liquid: No signs/symptoms of aspiration were demonstrated with multiple straw drinks of honey-thick liquid. - Puree: No signs/symptoms of aspiration were demonstrated with multiple teaspoons of puree. *As the patient demonstrated a delayed cough following a majority of nectar- thick liquid trials, the speech pathologist is recommending honey-thick liquids at this time. The recommendation was shared with the RN. The speech pathologist is also recommending a video swallow to definitively rule out aspiration. Cognitive Treatment: The cognitive evaluation was reattempted on this date with limited participation from the patient. The patient was able to state two of three single words immediately, however, was unable to recall any of the three words provided following a five minute delay and category cues by the clinician. The patient was oriented to month, however, stated the year was 1959. The patient would frequently shout out for her "mom" and continuously ask the clinician to "let her go." The patient demonstrated 60% accuracy with simple yes/no questions. The patient ceased participating in the cognitive re- evaluation at this time. Assessment Assessment Current Status: Poor Progress Treatment Plan Continue Plan of Care Communication Comprehension: 2 Expression: 3 Social Cognition Social Interaction: 2 Problem Solvin Memory: 1 Speech Short Term Goals Short Term Goals Short Term Goals 1. The patient will participate in a full cognitive evaluation for appropriate, functional treatment goals. 2. The patient will tolerate bolus trials of the least restrictive consistency without signs/symptoms of aspiration. 3. Patient will demonstrate swallowing strategies with 80% accuracy, independently. Time Frame-STG: One Week Speech Long-Term Goals Central Supply Technician Supervisor Goals 1. The patient will demonstrate improved cognitive skills for increased function and safety with ADL's. 2. The patient will tolerate the least restrictive consistency diet without signs/symptoms of aspiration. Time Frame: Four Weeks Comprehension: 3 Expression: 3 Social Interaction: 4 Problem Solvin Memory: 3 Speech-Plan Treatment Plan Speech Therapy Treatment Plan: Continue Plan of Care Treatment Duration: Jul 04, 2016 # of days/week Four to Five Visits Per Week: Four to Five Minutes/Day (M-F): 30 Rehab Potential: Guarded Safety Risks/Education Teaching Recipient: Patient Teaching Methods: Discussion Response to Teaching: Verbalize Understanding, Reinforcement Needed Education Topics Provided: Orientation Strategies (external white board) Time Speech Therapy Time In: 08:00 Speech Therapy Time Out: 09:00 Total Billed Time: 60 Billed Treatment Time 1, SLTS and 1, NARA GARCÍA Jun 03, 2016 14:54
[2016-06-03 18:59] VITALS: BP 109/66
[2016-06-03] MEDS: AMITRIPTYLINE 50 MG (ELAVIL) TAB PO SCH (20:19)
[2016-06-03] MEDS: ENOXAPARIN 30 MG/0.3 ML (LOVENOX) SYR SC SCH (20:19)
[2016-06-03] MEDS: LORazepam 1 MG (ATIVAN) TAB PO PRN (20:48)
[2016-06-04 06:00] VITALS: BP_SYST 151; BP_SYST 96; BP_DIAS 65; BP_DIAS 81
[2016-06-04 06:29] LABS: MEAN PLATELET VOLUME 10.4 FL (7.4-10.4); RED BLOOD COUNT 2.62 10^6/uL (4.35-5.85); RED CELL DISTRIBUTION WIDTH 17.8 % (10.0-14.5); WHITE BLOOD COUNT 7.5 10^3/uL (4.3-11.0)
[2016-06-04 06:45] LABS: ALANINE AMINOTRANSFERASE < 6 U/L (0-55); ALBUMIN 1.8 G/DL (3.2-4.5); ANION GAP 11 MMOL/L (5-14); ASPARTATE AMINO TRANSFERASE 12 U/L (5-34); BILIRUBIN,TOTAL 0.3 MG/DL (0.1-1.0); BLOOD UREA NITROGEN 13 MG/DL (7-18); BUN/CREATININE RATIO 25; CALCIUM 7.1 MG/DL (8.5-10.1); CARBON DIOXIDE 25 MMOL/L (21-32); CHLORIDE 105 MMOL/L (98-107); CREATININE SERUM 0.53 MG/DL (0.60-1.30); GFR ESTIMATED > 60; GLUCOSE 76 MG/DL (70-105); MAGNESIUM 1.5 MG/DL (1.8-2.4); POTASSIUM 2.9 MMOL/L (3.6-5.0); SODIUM 141 MMOL/L (135-145); TOTAL PROTEIN 4.6 G/DL (6.4-8.2)
--- NOTE | 2016-06-04 08:29 | Progress Note (SOAP) ---
Subjective Subjective/Events-last exam patient feels diet. Patient looks less fragile but still fragile. Potassium 2.9 Will replace. Magnesium going up Objective Exam Vital Signs Date Time Temp Pulse Resp B/P Pulse Ox O2 Delivery O2 Flow Rate FiO2 06/04/16 06:00 98.1 99 18 96/65 93 Room Air 06/03/16 21:00 Room Air 06/03/16 18:59 98.9 90 18 109/66 94 Room Air 06/03/16 09:00 Room Air I & O 06/04/16 07:00 Intake Total 620 ml Output Total 1850 ml Balance -1230 ml Capillary Refill : Greater Than 3 Seconds General Appearance: Thin Other (fragile) Results Lab Laboratory Tests 06/03/16 11:15: Glucometer 77 06/04/16 05:48: Alanine Aminotransferase (ALT/SGPT) < 6, Albumin 1.8L, Alkaline Phosphatase 125 , Anion Gap 11, Aspartate Amino Transf (AST/SGOT) 12, BUN/Creatinine Ratio 25, Blood Urea Nitrogen 13, Calcium Level 7.1L, Carbon Dioxide Level 25, Chloride Level 105, Creatinine 0.53L, Estimat Glomerular Filtration Rate > 60, Glucose Level 76, Hematocrit 24L, Hemoglobin 7.4L, Magnesium Level 1.5L, Mean Corpuscular Hemoglobin 28, Mean Corpuscular Hemoglobin Concent 31L, Mean Corpuscular Volume 90, Mean Platelet Volume 10.4, Platelet Count 213, Potassium Level 2.9L, Red Blood Count 2.62L, Red Cell Distribution Width 17.8H, Sodium Level 141, Total Bilirubin 0.3, Total Protein 4.6L, White Blood Count 7.5 Microbiology 05/30/16 C. difficile DNA Amplification - Final, Complete 05/30/16 C. difficile GDH Antigen & Toxins - Final, Complete Assessment/Plan Assessment/Plan Assess & Plan/Chief Complaint fragile. Weakness. New-onset diabetes. Skin breakdown. . 05/31/16. . Weakness. New-onset diabetes. Hypomagnesemia. Anemia to monitor. . 06/03/16. Patient anxious. Patient complaining of pain. Patient fragile. Weakness. Diabetes area Skin breakdown. . 06/04/16. Patient feels tired. Fragile. Weakness. Diabetes. Skin breakdown Diagnosis/Problems: Clinical Quality Measures DVT/VTE Risk/Contraindication: Risk Factor Score Per Nursin RFS Level Per Nursing on Admit: 4+=Very High IBRAHIMA PATTON DO Jun 04, 2016 08:28
[2016-06-04] MEDS: MAGNESIUM OXIDE (MAG-OX)400 MG TAB PO SCH ×3 (09:05→20:36)
[2016-06-04] MEDS: PARoxetine 10 MG (PAXIL) TAB PO SCH (09:06)
[2016-06-04] MEDS ORDERED: KCL 10 MEQ TAB (MICRO K) PO NR (09:30)
[2016-06-04] MEDS ORDERED: KCL 20 MEQ TAB (K-DUR) PO NR (09:30)
[2016-06-04] MEDS: POVIDONE (BETADINE) 10% SOLN 240 ML BTL TOP SCH (09:55)
[2016-06-04] MEDS: HYDROcodone/APAP 10 MG/325 MG (LORTAB) TAB PO PRN (10:13)
--- NOTE | 2016-06-04 10:26 | Occupational Ther Daily Note ---
OT Current Status-Daily Note Subjective Pt. yells and moans with pain. States that her bottom hurts. Let nursing know that pt. would like a pain pill. Pt. also requests a "xani." Let nursing know this. Pt. does not report a pain number as she is too confused. Appearance Pt. in bed with right LE hanging over rail. Yelling when therapy comes into room. States that she does not know why she is yelling. Note that pt. has just become incontinent of bowel. Mental Status/Objective Patient Orientation: Confused, Unable to Assess Functional [place] Measure 0=Not Assessed/NA 4=Minimal Assistance 1=Total Assistance 5=Supervision or Setup 2=Maximal Assistance 6=Modified [place] 3=Moderate Assistance 7=Complete [place] ADL-Treatment Functional [place] Measure 0=Not Assessed/NA 4=Minimal Assistance 1=Total Assistance 5=Supervision or Setup 2=Maximal Assistance 6=Modified [place] 3=Moderate Assistance 7=Complete IndependenceIRFPAI Quality Coding Scale 6 Independent with activity with or without an assistive device 5 Patient requires set up or clean up by helper. Patient completes activity by themselves 4 Supervision or touching assist (CGA). [place] provide cues , steadying assist 3 The helper provides less than half the effort to complete the activity 2 The helper provides more than half the effort to complete the activity 1 Dependent. The helper does all the effort to complete an activity 7 Patient refused to complete or attempt activity 9 The patient did not perform the activity before the current illness or injury 88 Not attempted due to Medical conditions or safety concerns Grooming (FIM): 1 (OT attempts to brush pt's hair. Requires mod x 1 for support in bed on side from PT, and dependent assist for OT to brush hair.) Toileting Hygiene (QC): 1 (Pt. is incontinent of bowel x 2. Once in bed, and once in wheelchair. Dependent for fredrick cleansing.) Bathing (FIM): 1 (Pt. requires assist of one person to sit on side of bed, and dependent assist to wash self. Pt. is handed cloth, but does not attempt or initiate washing self.) Upper Body (FIM): 1 (Pt. is dependent to doff t-shirt and undershirt.) Upper Body Dressing (QC): 1 Toileting (FIM): 1 Transfers (B, C, W/C) (FIM): 2 (Pt. requires max assist for supine-sit, and max /dependent assist for sit-stand and pivot to wheelchair.) OT/PT co-treat. Pt. yells out throughout treatment due to pain. At times will also state, "I don't know why I am yelling." Pt. requires dependent assist in bed for fredrick care, as PT assists with rolling and hand placement on rails while OT facilitates bottom cleanse. Once clean, pt. transfers to side of bed with max assist. PT facilitates dynamic seated balance and upright posture while OT encourages pt. to wash self. Places washcloth in hand but pt. can't focus to do this task. OT washes pt. Donned clean gown as no other street clothing available. Transfer to wheelchair. Encouraged pt. to self propel to gym. Pt. initiated this with OT placing right hand on wheel. Pt. attempted, but continued to yell out. Went to gym. Stood 3 times at parallel bars. Pt. required max assist of PT in front to block right knee, OT facilitated glutes and upright posture. Pt. would yell out throughout treatment but was encouraged to try and stand. Pt. able to stand upright in bars approximately 30 seconds each time. Noted that pt. incontinent of bowel again. PT facilitated standing while OT washed rear fredrick area. Went back to room. Transferred to bed. Right LE and UE elevated on pillows. Call light within reach, rails up, alarm set. All needs met. Education OT Patient Education: Correct positioning, Modified ADL techniques, Progress toward Goal/Update tx plan, Purpose of tx/functional activities, Reviewed precautions, Rehab process, Transfer techniques Teaching Recipient: Patient Teaching Methods: Demonstration, Discussion Response to Teaching: Verbalize Understanding, Return Demonstration OT Short Term Goals Short Term Goals Time Frame: Jun 13, 2016 Eating(FIM): 5 Grooming(FIM): 4 Bathing(FIM): 3 Upper Body Dressing(FIM): 5 Lower Body Dressing(FIM): 4 Toileting(FIM): 3 Transfers (B,C,W/C) (FIM): 3 Toilet/Commode Transfer(FIM): 3 Shower Transfer(FIM): 3 Additional Short Term Goals: 1-Demonstrate ADL Tasks, 2-Verbalize Understanding , 3-ImproveStrength/[place] 1=Demonstrate adherence to instructed precautions during ADL tasks. 2=Patient will verbalize/demonstrate understanding of assistive devices/ modifications for ADL. 3=Patient will improve strength/tolerance for activity to enable patient to perform ADL's. OT Jail Goals Jail Goals Time Frame: Jul 04, 2016 Eating (FIM): 6 Eating (QC): 6 Oral Hygiene (QC): 6 Grooming(FIM): 6 Bathing(FIM): 5 Shower/Bathe Self (QC): 5 Upper Body Dressing(FIM): 5 Upper Body Dressing (QC): 5 Lower Body Dressing(FIM): 5 Lower Body Dressing (QC): 5 On/Off Footwear (QC): 5 Toileting(FIM): 6 Toileting Hygiene (QC): 6 Transfers (B,C,W/C) (FIM): 5 Toilet/Commode Transfer(FIM): 5 Toilet/Commode Transfer (QC): 5 Shower Transfer(FIM): 5 Comprehension(FIM): 3 Expression (FIM): 3 Social Interaction(FIM): 4 Problem Solving(FIM): 3 Memory(FIM): 3 Additional Goals: 1-Demonstrate ADL Tasks, 2-Verbalize Understanding, 3- ImproveStrength/[place] 1=Demonstrate adherence to instructed precautions during ADL tasks. 2=Patient will verbalize/demonstrate understanding of assistive devices/ modifications for ADL. 3=Patient will improve strength/tolerance for activity to enable patient to perform ADL's. OT Education/Plan Problem List/Assessment Assessment: Decreased Activ Tolerance, Decreased UE Strength, Dependent Transfers, Impaired Bed Mobility, Impaired Funct Balance, Impaired I ADL's, Impaired Self-Care Skills, Restricted Funct UE ROM Discharge Recommendations Plan/Recommendations: Continue POC Therapy D/C Recommendations: 24 hr Supervision Treatment Plan/Plan of Care Treatment,Training & Education: Yes Patient would benefit from OT for education, treatment and training to promote independence in ADL's, mobility, safety and/or upper extremity function for ADL' s. Plan of Care: ADL Retraining, Caregiver Training, Cognitive Retraining, Functional Mobility, UE Funct Exercise/Act, Visual/Perceptual Retrain Treatment Duration: Jul 04, 2016 Visits Per Week: 10-12 Minutes/Day (M-F): 60-90 Minutes/Day (Sat/[place]): prn Agreement: Yes Rehab Potential: Guarded Time/GCodes Start Time: 09:00 Stop Time: 10:00 Total Time Billed (hr/min): 60 Billed Treatment Time 1, ADL x 30minutes, FA x 30minutes MAURICE RAMOS OT Jun 04, 2016 10:26
--- NOTE | 2016-06-04 10:43 | Physical Therapy Daily Note ---
PT Daily Note-Current Subjective Patient already with OT when PT enters, patient is trying to get out of bed and she has had a BM and will need to be cleaned. Patient yells out and her lucidness seems to vary wildly. Will be co-treating with OT due to poor patient mobility, trunk strength and balance during activities, pain, poor activity tolerance. Pain Comment: Pain on bottom but will not rate. Appearance Patient BTB post tx with nurse call, phone, tray, all needs met. Bed alarm on. Mental Status Patient Orientation: Confused Transfers Functional [place] Measure 0=Not Assessed/NA 4=Minimal Assistance 1=Total Assistance 5=Supervision or Setup 2=Maximal Assistance 6=Modified [place] 3=Moderate Assistance 7=Complete IndependenceIRFPAI Quality Coding Scale 6 Independent with activity with or without an assistive device 5 Patient requires set up or clean up by helper. Patient completes activity by themselves 4 Supervision or touching assist (CGA). [place] provide cues , steadying assist 3 The helper provides less than half the effort to complete the activity 2 The helper provides more than half the effort to complete the activity 1 Dependent. The helper does all the effort to complete an activity 7 Patient refused to complete or attempt activity 9 The patient did not perform the activity before the current illness or injury 88 Not attempted due to Medical conditions or safety concerns Transfers (B, C, W/C) (FIM): 1 Scootin Rollin Supine to/from Sit: 1 Sit to/from Stand: 1 Bed to/from Chair: 1 Wheelchair Training Does the Pt Use a Wheelchair?: Yes Wheelchair (FIM): 2 Distance: 50' Wheelchair Level of Assist: 2 Type of Wheelchair: Manual Patient is able to assist with her left arm and hand to push wheelchair. Exercises Patient stood in the parallel bars x 3. Treatments Patient needs cleaned for a BM at the beginning of tx, both OT and PT assist with this with PT helping with turning and OT with pericare. Patient was then sat up in bed and was dressed and groomed by OT while PT assisted and worked with patient on sitting balance. Patient was then transferred to a wheelchair to practice wheelchair mobility and then to the therapy gym to work on standing. After that she was taken back to her room and back to bed. OT assisted with right arm and upper body during standing. Patient needed many rest breaks during tx due to pain, fatigue, and confusion. She needed oriented to what we were doing and what happened to her. Assessment Current Status: Poor Progress Patient has poor motivation, actually resists tx sometimes. PT Short Term Goals Short Term Goals Time Frame: Jun 13, 2016 Transfers (B,C,W/C) (FIM): 3 Gait (FIM): 1 (hops only) Wheelchair (FIM): 4 Wheelchair distance (FIM): 3=150 ft PT Residential Goals [place] Goals PT Residential Goals Time Frame: Jun 27, 2016 Transfers (B,C,W/C) (FIM): 6 Sit to Lying (QC): 6 Lying-Sitting on Side/Bed(QC): 6 Sit to Stand (QC): 6 Rollin Roll Left to Right (QC): 6 Chair/Vpl-kq-Jlbyb Xfer(QC): 6 Car Transfer (QC): 5 Does the Patient Walk: Yes Gait (FIM): 2 Gait distance (FIM): 1=up to 49 ft Distance: 10 ft hopping Walk 10 feet (QC): 4 Walk 10ft-Uneven Surface(QC): 88 Walk 50ft with 2 Turns (QC): 88 Walk 150 ft (QC): 88 Gait Level of Assist: 4 Gait Assistive Device: FWW Does the Pt use WC or Scooter?: Yes Wheelchair (FIM): 6 Wheelchair distance (FIM): 3=150 ft Wheelchair Level of Assist: 6 Wheel 50 feet with 2 turns (QC: 6 Stairs (FIM): 88 (usafe to attempt) 1 Step (curb) (QC): 88 4 Steps (QC): 88 12 Steps (QC): 88 Picking up an Object (QC): 88 (unsafe) PT Plan Problem List Problem List: Activity Tolerance, Functional Strength, Safety, Balance, Gait, Transfer, Bed Mobility, ROM Treatment/Plan Treatment Plan: Continue Plan of Care Treatment Plan: Bed Mobility, Education, Functional Activity [place], Functional Strength, Group Therapy, Gait, Safety, Therapeutic Exercise, Transfers Treatment Duration: Jun 27, 2016 Visits Per Week: 10-15 Minutes/Day (M-F): 60-90 Minutes/Day (Sat/[place]): prn Safety Risks/Education Patient Education: Transfer Techniques, Correct Positioning, W/C Management, Safety Issues Teaching Recipient: Patient Teaching Methods: Demonstration, Discussion Response to Teaching: Reinforcement Needed Time/GCodes Time In: 900 Time Out: 1000 Total Billed Treatment Time: 60 Total Billed Treatment 1 visit FA 60 min co-treated with OT for the whole 60 min ALONSO FARIA PT Jun 04, 2016 10:43
--- NOTE | 2016-06-04 13:28 | Physical Therapy Daily Note ---
PT Daily Note-Current Subjective Patient in bed pre tx, she has turned herself almost sideways and has her right leg hanging over the bed rail. Pain Comment: Has pain in bottom but will not rate. Appearance Patient in bed post tx, has nurse call, phone, tray, all needs met. Patient wanted to lay flat on her back, nursing notified so she could roll her to her side when appropriate. Mental Status Patient Orientation: Confused Transfers Functional [place] Measure 0=Not Assessed/NA 4=Minimal Assistance 1=Total Assistance 5=Supervision or Setup 2=Maximal Assistance 6=Modified [place] 3=Moderate Assistance 7=Complete IndependenceIRFPAI Quality Coding Scale 6 Independent with activity with or without an assistive device 5 Patient requires set up or clean up by helper. Patient completes activity by themselves 4 Supervision or touching assist (CGA). [place] provide cues , steadying assist 3 The helper provides less than half the effort to complete the activity 2 The helper provides more than half the effort to complete the activity 1 Dependent. The helper does all the effort to complete an activity 7 Patient refused to complete or attempt activity 9 The patient did not perform the activity before the current illness or injury 88 Not attempted due to Medical conditions or safety concerns Exercises Supine Ex: Ankle pumps, Heel Slides, Short Arc Quads, Straight leg raise, Hip abd/add Supine Reps: 20 PROM/stretching to right leg, above exercises are for right leg, left leg hip flexion and abduction x 20 Treatments stretching, ROM, functional strengthening Assessment Current Status: Poor Progress Patient did not participate with full effort PT Short Term Goals Short Term Goals Time Frame: Jun 13, 2016 Transfers (B,C,W/C) (FIM): 3 Gait (FIM): 1 (hops only) Wheelchair (FIM): 4 Wheelchair distance (FIM): 3=150 ft Wheelchair Distance: 50' PT Help Desk Manager Goals [place] Goals PT Help Desk Manager Goals Time Frame: Jun 27, 2016 Transfers (B,C,W/C) (FIM): 6 Sit to Lying (QC): 6 Lying-Sitting on Side/Bed(QC): 6 Sit to Stand (QC): 6 Rollin Roll Left to Right (QC): 6 Chair/Roc-bq-Uvvhd Xfer(QC): 6 Car Transfer (QC): 5 Does the Patient Walk: Yes Gait (FIM): 2 Gait distance (FIM): 1=up to 49 ft Distance: 10 ft hopping Walk 10 feet (QC): 4 Walk 10ft-Uneven Surface(QC): 88 Walk 50ft with 2 Turns (QC): 88 Walk 150 ft (QC): 88 Gait Level of Assist: 4 Gait Assistive Device: FWW Does the Pt use WC or Scooter?: Yes Wheelchair (FIM): 6 Wheelchair distance (FIM): 3=150 ft Wheelchair Level of Assist: 6 Wheel 50 feet with 2 turns (QC: 6 Stairs (FIM): 88 (usafe to attempt) 1 Step (curb) (QC): 88 4 Steps (QC): 88 12 Steps (QC): 88 Picking up an Object (QC): 88 (unsafe) PT Plan Problem List Problem List: Activity Tolerance, Functional Strength, Safety, Balance, Gait, Transfer, Bed Mobility, ROM Treatment/Plan Treatment Plan: Continue Plan of Care Treatment Plan: Bed Mobility, Education, Functional Activity [place], Functional Strength, Group Therapy, Gait, Safety, Therapeutic Exercise, Transfers Treatment Duration: Jun 27, 2016 Visits Per Week: 10-15 Minutes/Day (M-F): 60-90 Minutes/Day (Sat/[place]): prn Safety Risks/Education Patient Education: Correct Positioning, Safety Issues Teaching Recipient: Patient Teaching Methods: Demonstration, Discussion Response to Teaching: Reinforcement Needed Time/GCodes Time In: 1300 Time Out: 1330 Total Billed Treatment Time: 30 Total Billed Treatment 1 visit EX 30 min ALONSO FARIA PT Jun 04, 2016 13:28
[2016-06-04] MEDS: LORazepam 1 MG (ATIVAN) TAB PO PRN (13:40)
--- NOTE | 2016-06-04 15:50 | Occupational Ther Daily Note ---
OT Current Status-Daily Note Subjective Pt. states that her bottom hurts, but does not give a number. Nursing to give pain medication. Appearance Pt. in bed. Agrees to right UE exercises. See note below. Mental Status/Objective Patient Orientation: Unable to Assess Functional Williamson Measure 0=Not Assessed/NA 4=Minimal Assistance 1=Total Assistance 5=Supervision or Setup 2=Maximal Assistance 6=Modified Williamson 3=Moderate Assistance 7=Complete Williamson ADL-Treatment Functional Williamson Measure 0=Not Assessed/NA 4=Minimal Assistance 1=Total Assistance 5=Supervision or Setup 2=Maximal Assistance 6=Modified Williamson 3=Moderate Assistance 7=Complete IndependenceIRFPAI Quality Coding Scale 6 Independent with activity with or without an assistive device 5 Patient requires set up or clean up by helper. Patient completes activity by themselves 4 Supervision or touching assist (CGA). [place] provide cues , steadying assist 3 The helper provides less than half the effort to complete the activity 2 The helper provides more than half the effort to complete the activity 1 Dependent. The helper does all the effort to complete an activity 7 Patient refused to complete or attempt activity 9 The patient did not perform the activity before the current illness or injury 88 Not attempted due to Medical conditions or safety concerns Pt. declines out of bed activity. Agrees to work on right UE. Note emerging movement in all planes in right UE. However, once pt.is given a specific exercise, she is able to perform it only 50%, and then falls asleep. Continually needs to be awoken. Worked on right shoulder, elbow, wrist, and fingers. Note that pt. does have increasing movement each day. Throughout treatment, pt. begs for "coke" that is not thickened. Explain multiple times that her liquids have to be thick due to swallowing precautions. Pt. does not seem to understand this. Spouse came into room. Has many questions for OT, such as "why is she having pain?" Also, "why is she yelling out?" Went through pt's history with spouse, such as the anoxic event that brought her to hospital , being on the ventilator, her wounds that were there per the ED report. Unsure if pt's spouse understands this or not. Seems to give multiple answers. First stated that pt. was not on the vent, and then agreed that she was. States that she never lost consciousness, but then states that she did. His report does not seem congruent with what the ED report and pt's history suggests. Explained that pt. has wound on coccyx area that she had in the ED. Spouse states then that he did know it was there. Explained that wound is sore with increased movement. Will continued to work toward education to ensure that pt. is in safe environment. Pt. has a Skil worker. This therapist does not know how they will manage at home if that is indeed their plan. Let nursing know that spouse had questions regarding medication. Education OT Patient Education: Correct positioning, Exercise program, Instructions to caregiver, Modified ADL techniques, Progress toward Goal/Update tx plan, Purpose of tx/functional activities, Reviewed precautions, Rehab process, Transfer techniques Teaching Recipient: Patient Teaching Methods: Demonstration, Discussion Response to Teaching: Verbalize Understanding, Return Demonstration OT Short Term Goals Short Term Goals Time Frame: Jun 13, 2016 Eating(FIM): 5 Grooming(FIM): 4 Bathing(FIM): 3 Upper Body Dressing(FIM): 5 Lower Body Dressing(FIM): 4 Toileting(FIM): 3 Transfers (B,C,W/C) (FIM): 3 Toilet/Commode Transfer(FIM): 3 Shower Transfer(FIM): 3 Additional Short Term Goals: 1-Demonstrate ADL Tasks, 2-Verbalize Understanding , 3-ImproveStrength/Dalton 1=Demonstrate adherence to instructed precautions during ADL tasks. 2=Patient will verbalize/demonstrate understanding of assistive devices/ modifications for ADL. 3=Patient will improve strength/tolerance for activity to enable patient to perform ADL's. OT Human Resources Hr Generalist Goals Human Resources Hr Generalist Goals Time Frame: Jul 04, 2016 Eating (FIM): 6 Eating (QC): 6 Oral Hygiene (QC): 6 Grooming(FIM): 6 Bathing(FIM): 5 Shower/Bathe Self (QC): 5 Upper Body Dressing(FIM): 5 Upper Body Dressing (QC): 5 Lower Body Dressing(FIM): 5 Lower Body Dressing (QC): 5 On/Off Footwear (QC): 5 Toileting(FIM): 6 Toileting Hygiene (QC): 6 Transfers (B,C,W/C) (FIM): 5 Toilet/Commode Transfer(FIM): 5 Toilet/Commode Transfer (QC): 5 Shower Transfer(FIM): 5 Comprehension(FIM): 3 Expression (FIM): 3 Social Interaction(FIM): 4 Problem Solving(FIM): 3 Memory(FIM): 3 Additional Goals: 1-Demonstrate ADL Tasks, 2-Verbalize Understanding, 3- ImproveStrength/Dalton 1=Demonstrate adherence to instructed precautions during ADL tasks. 2=Patient will verbalize/demonstrate understanding of assistive devices/ modifications for ADL. 3=Patient will improve strength/tolerance for activity to enable patient to perform ADL's. OT Education/Plan Problem List/Assessment Assessment: Decreased Activ Tolerance, Decreased Safety Aware, Decreased UE Strength, Dependent Transfers, Impaired Bed Mobility, Impaired Cognition, Impaired Coordination, Impaired Funct Balance, Impaired I ADL's, Impaired Self- Care Skills, Restricted Funct UE ROM Discharge Recommendations Plan/Recommendations: Continue POC Therapy D/C Recommendations: 24 hr Supervision Target Placement Unsure at this time of what pt's target discharge will be. Treatment Plan/Plan of Care Treatment,Training & Education: Yes Patient would benefit from OT for education, treatment and training to promote independence in ADL's, mobility, safety and/or upper extremity function for ADL' s. Plan of Care: ADL Retraining, Caregiver Training, Cognitive Retraining, Functional Mobility, UE Funct Exercise/Act, Visual/Perceptual Retrain Treatment Duration: Jul 04, 2016 Visits Per Week: 10-12 Minutes/Day (M-F): 60-90 Minutes/Day (Sat/Gallego): prn Agreement: Yes Rehab Potential: Guarded Time/GCodes Start Time: 13:30 Stop Time: 14:15 Total Time Billed (hr/min): 45 Billed Treatment Time 1, EX x 30minutes, FA x 15minutes MAURICE RAMOS OT Jun 04, 2016 15:50
--- NOTE | 2016-06-04 15:50 | Behavioral Health Consult ---
Consult- Consult VIA [facility] [address], [facility]. VIA [facility] PSYCHOLOGICAL CONSULTATION PATIENT: Abram Perla DATE: 1960 DATE OF EVALUATION: 06/03/16 (13:15-13:45) DATE OF REPORT: 06/04/16 REFERRAL QUESTION: Abram Perla is a 56-year-old female who was recently admitted to the hospital due to having a leg amputated. Dr. Lopez asked for a psychological consultation. TESTS ADMINISTERED: Clinical Interview with Patient PRESENTING PROBLEMS: Mrs. Perla is currently on the rehab unit of the hospital due to having her left leg recently amputated slightly above the knee. She complained of being in a great deal of pain. She talked about pain in her arm, her stomach and her bottom. She did not communicate much with this consumer loan underwriter due to the pain she was experiencing. Her who was present talked more to this consumer loan underwriter. He had both of his legs amputated and was able to talk about what his is likely going through presently. He states that he has never seen her like this but admits that is how he was after having his first leg amputated. She was not making the most sense during the interview and arguing with her over things including how she needed a Coke. He stated that she had one in front of her. She said that she wanted one, and he asked her if she wanted a second one to which she replied, "No, I want ten!" She also argued with him about a fruit cup which she wanted but was apparently not allowed to have. She did not make sense in some of the things that she said. CURRENT/PREVIOUS MENTAL HEALTH TREATMENT: This was not formally assessed. She was prescribed Paxil, Elavil and Xanax at admission. Her reported that she has taken those for about three years. MEDICAL HISTORY: See medical chart for detailed history. Mrs. Perla was reportedly in organ failure along with having to have her leg amputated. Her indicated that they did not even know that she was diabetic until recently. For a full medication list, please see chart. She was prescribed Paxil, Elavil, Xanax and Lortab at admission. RECREATIONAL DRUG USAGE: This was not assessed although the medical record indicated a history of substance abuse. VOCATIONAL/EDUCATIONAL HISTORIES: Has not reportedly worked since last summer when she was working at [employer]. 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 LEGAL HISTORY: Legal history was not assessed. FAMILY AND SOCIAL HISTORIES/SOCIAL SUPPORT: Mrs. Perla lives at home with her . They have reportedly been for thirty-three years. They are currently raising their 5 year-old grandson. Her has a SKIL worker who helps him who should also start helping Mrs. Perla when she returns home. She states that she is trusts the SKIL worker more than she trusts her own children. She has two daughters and one step daughter. BEHAVIORAL OBSERVATIONS/MENTAL STATUS: The patient was seen in her hospital room as she was dressed in a hospital gown and laying in her bed. She screamed in pain for a large portion of the interview and asked to be changed when this consumer loan underwriter initially presented in her room. When this consumer loan underwriter returned, she seemed in better spirits but in more pain. She yelled at her and complained about how she did not deserve to be in this situation. She did not seem to be thinking clearly and could only focus on her pain and being upset with her . She did indicate that she has been able to sleep some. SUMMARY: Mrs. Perla is currently at the hospital on the 2nd floor (rehab). Mrs. Perla is having problems with pain due to a recent leg amputation. She appears highly anxious and unable to relax as she is fixated on her pain. She could likely benefit from a longer acting anxiolytic such as Ativan which might allow her to relax more. She should continue to be monitored to see if her clarity of thoughts improves. If her thinking does not improve nor does her agitation, she may require an antipsychotic to help her remain calm. DIAGNOSTIC IMPRESSIONS: R41.0 Unspecified Delirium due to pain/substances and F41.9 Unspecified Anxiety Disorder Thank you for the opportunity to consult on this patient. DOMINIQUE VOGEL PSYD Jun 04, 2016 15:50
--- NOTE | 2016-06-04 17:09 | PM & R (SOAP) Progress Note ---
Subjective Subjective/Events-last exam Patient was seen in her room this afternoon somnlent did not awaken to verbal stimuli Called out much of day and last night discussed with evening RN yesterday and day RN today Appreciate Psych note DR Diaz-Will have trial of lowdose antipsychotic at HS Zyprexa Used Atiavn 1mg last night Appreciate DR Shepard and Shaun notes and orders,Patient making minimal gains in therapies and hesitant to increase pain meds due to patients history.It also appears that agitation not clearly related to pain control issues.Appreciate Therapy notes Review of Systems Neurological: : Confusion: Other (restlessness agitation) Objective Exam Last Set of Vital Signs Vital Signs Date Time Temp Pulse Resp B/P Pulse Ox O2 Delivery O2 Flow Rate FiO2 06/04/16 08:45 Room Air 06/04/16 06:00 98.1 99 18 96/65 93 06/02/16 19:40 2.00 Capillary Refill : Greater Than 3 Seconds I&O Intake and Output 06/04/16 00:00 Intake Total 760 ml Output Total 1450 ml Balance -690 ml Intake Oral 760 ml Output Urine Total 1450 ml # Bowel Movements 10 General: Alert, No Acute Distress HEENT: Atraumatic Neck: No JVD Lungs: Clear to Auscultation, Normal Air Movement Heart: Regular Rate, No Murmurs Abdomen: Normal Bowel Sounds, Soft Extremities: Other (L AKA with healing, intact incision. Plapable R DP pulse. ) Skin: Other (Sacral wound: 2.5 x 4.8 x 0.6 cm; base 75% slough, 25% granulation , mod. thin, cormier drainage. R 3rd toe: 2.3 x 1.7 x 0.2 cm; 100% black eschar, no drainage.) Neuro: Other (generalized weakness) Psych/Mental Status: Other (flat affect) Results Lab Laboratory Tests 06/01/16 20:53: Glucometer 106 06/02/16 06:17: Glucometer 94 06/02/16 11:49: Glucometer 107 06/02/16 16:09: Glucometer 100 06/02/16 21:15: Glucometer 99 06/03/16 11:15: Glucometer 77 06/04/16 05:48: Alanine Aminotransferase (ALT/SGPT) < 6, Albumin 1.8L, Alkaline Phosphatase 125 , Anion Gap 11, Aspartate Amino Transf (AST/SGOT) 12, BUN/Creatinine Ratio 25, Blood Urea Nitrogen 13, Calcium Level 7.1L, Carbon Dioxide Level 25, Chloride Level 105, Creatinine 0.53L, Estimat Glomerular Filtration Rate > 60, Glucose Level 76, Hematocrit 24L, Hemoglobin 7.4L, Magnesium Level 1.5L, Mean Corpuscular Hemoglobin 28, Mean Corpuscular Hemoglobin Concent 31L, Mean Corpuscular Volume 90, Mean Platelet Volume 10.4, Platelet Count 213, Potassium Level 2.9L, Red Blood Count 2.62L, Red Cell Distribution Width 17.8H, Sodium Level 141, Total Bilirubin 0.3, Total Protein 4.6L, White Blood Count 7.5 Microbiology 05/30/16 C. difficile DNA Amplification - Final, Complete 05/30/16 C. difficile GDH Antigen & Toxins - Final, Complete Assessment/Plan Assessment S/P left aka S/P toe amputations rt foor WBAT RT Heel Underweight with hx of Substance abuse Hypocalcemia Hypokalemia mild Anemia Dysphagia on modified consistency diet-appreciate ST note sacral pressure sore as per DR Hernandez and his RX Plan Continue PT/OT/ST Patient late arrival from OSH last evening and assessments ongoing Replace electrolytes Nutritional consult Behav Health consult-done appreciate his recs WBS RLE clarified D/C Olivarez when more mobile F/U Labs F/U with DR Varela PRYong F/U with Case management re patient obtaining a Medical Card as patient has no current Medical Insurance. F/U with DR hernandez TRial of lowdose antipsychotic _zyprexa See orders. Team Conference tomorrow 06/05/16 DARIO loking at placement options for patient but family would like patient to come home with them which appears problematic at this time MAHENDRA MCGILL MD Jun 04, 2016 17:09
[2016-06-04 18:59] VITALS: BP 91/56
[2016-06-04] MEDS: AMITRIPTYLINE 50 MG (ELAVIL) TAB PO SCH (20:36)
[2016-06-04] MEDS: DIPHENOXYLATE/ATROPINE 2.5MG/0.025MG (LOMOTIL) TAB PO PRN (20:36)
[2016-06-04] MEDS: ENOXAPARIN 40 MG/0.4 ML (LOVENOX) SYR SC SCH (20:36)
[2016-06-04] MEDS: OLANZapine 5 MG ODT (ZyPREXA ZYDIS) PO SCH (20:37)
--- NOTE | 2016-06-04 20:55 | Wound Care Progress Note ---
Subjective Subjective Subjective/Events-last exam 56 year old female with healed L AKA and multiple R toe amputations. Has unstageable pressure ulcer of sacrum. This has deteriorated. Review of Systems General: Fatigue HEENT: Head Aches Pulmonary: Dyspnea Cough Gastrointestinal: : Diarrhea Genitourinary: Incontinence Musculoskeletal: : leg pain Neurological: : Incoordination (L sided weakness and athetoid movements.): Numbness: Weakness Integumentary -- Healing wounds of L AKA, R 1-4 toes, sacral pressure ulcer. Patient shifts off of side when positioned to off-load sacral ulcer. Psych-- anxious, with choreoathetoid movements. Objective Exam Last Set of Vital Signs Vital Signs Date Time Temp Pulse Resp B/P Pulse Ox O2 Delivery O2 Flow Rate FiO2 06/04/16 08:45 Room Air 06/04/16 06:00 98.1 99 18 96/65 93 06/02/16 19:40 2.00 Capillary Refill : Greater Than 3 Seconds I&O Intake and Output 06/04/16 00:00 Intake Total 760 ml Output Total 1450 ml Balance -690 ml Intake Oral 760 ml Output Urine Total 1450 ml # Bowel Movements 10 General: Moderate Distress HEENT: Atraumatic Lungs: Normal Air Movement Abdomen: Soft Other Physical Findings marked cachexia. Results Lab Laboratory Tests 06/04/16 05:48: Alanine Aminotransferase (ALT/SGPT) < 6, Albumin 1.8L, Alkaline Phosphatase 125 , Anion Gap 11, Aspartate Amino Transf (AST/SGOT) 12, BUN/Creatinine Ratio 25, Blood Urea Nitrogen 13, Calcium Level 7.1L, Carbon Dioxide Level 25, Chloride Level 105, Creatinine 0.53L, Estimat Glomerular Filtration Rate > 60, Glucose Level 76, Hematocrit 24L, Hemoglobin 7.4L, Magnesium Level 1.5L, Mean Corpuscular Hemoglobin 28, Mean Corpuscular Hemoglobin Concent 31L, Mean Corpuscular Volume 90, Mean Platelet Volume 10.4, Platelet Count 213, Potassium Level 2.9L, Red Blood Count 2.62L, Red Cell Distribution Width 17.8H, Sodium Level 141, Total Bilirubin 0.3, Total Protein 4.6L, White Blood Count 7.5 Microbiology 05/30/16 C. difficile DNA Amplification - Final, Complete 05/30/16 C. difficile GDH Antigen & Toxins - Final, Complete Assessment/Plan Assessment/Plan Assessment/Plan 1. Multiple R toe amputations. 2. S/P L AKA with healing incision. 3. Pressure ulcer, sacrum, unstageable. Plan: Encourage patient to stay off back, silver alginate dressings for sacrum , [id number] mattress. await culture results. MILVIA OKEEFE MD Jun 04, 2016 20:55
[2016-06-05] MEDS: LORazepam 1 MG (ATIVAN) TAB PO PRN ×2 (01:18→13:44)
[2016-06-05] MEDS: HYDROcodone/APAP 10 MG/325 MG (LORTAB) TAB PO PRN ×3 (03:29→22:30)
[2016-06-05 06:00] VITALS: BP 122/71
--- NOTE | 2016-06-05 08:09 | Progress Note (SOAP) ---
Subjective Subjective/Events-last exam patient has no complaints today. Sacral region has to follow areas of breakdown. Magnesium and potassium yesterday low will recheck tomorrow Patient anemic Objective Exam Vital Signs Date Time Temp Pulse Resp B/P Pulse Ox O2 Delivery O2 Flow Rate FiO2 06/05/16 06:00 97.1 86 20 122/71 90 Room Air 06/04/16 21:00 Room Air 06/04/16 18:59 97.9 91 16 91/56 94 Room Air 06/04/16 08:45 Room Air I & O 06/05/16 07:00 Intake Total 1010 ml Output Total 1050 ml Balance -40 ml Capillary Refill : Greater Than 3 Seconds General Appearance: No Apparent Distress Thin HEENT: Normal ENT Inspection Respiratory: Lungs Clear No Accessory Muscle Use No Respiratory Distress Cardiovascular: Regular Rate, Rhythm Results Lab Laboratory Tests 06/05/16 06:06: Glucometer 68L 06/05/16 06:46: Glucometer 87 Microbiology 05/30/16 C. difficile DNA Amplification - Final, Complete 05/30/16 C. difficile GDH Antigen & Toxins - Final, Complete Assessment/Plan Assessment/Plan Assess & Plan/Chief Complaint fragile. Weakness. New-onset diabetes. Skin breakdown. . 05/31/16. . Weakness. New-onset diabetes. Hypomagnesemia. Anemia to monitor. . 06/03/16. Patient anxious. Patient complaining of pain. Patient fragile. Weakness. Diabetes area Skin breakdown. . 06/04/16. Patient feels tired. Fragile. Weakness. Diabetes. Skin breakdown. . 06/05/16. Weakness. Sacral breakdown with 2, tunnels. Weakness. Hypomagnesemia`. Hypokalemia. Diagnosis/Problems: Clinical Quality Measures DVT/VTE Risk/Contraindication: Risk Factor Score Per Nursin RFS Level Per Nursing on Admit: 4+=Very High IBRAHIMA PATTON DO Jun 05, 2016 08:09
[2016-06-05] MEDS: PARoxetine 10 MG (PAXIL) TAB PO SCH (08:34)
[2016-06-05] MEDS: MAGNESIUM OXIDE (MAG-OX)400 MG TAB PO SCH ×3 (08:35→20:58)
[2016-06-05] MEDS: POVIDONE (BETADINE) 10% SOLN 240 ML BTL TOP SCH (09:30)
[2016-06-05] MEDS: ALPRAZolam 0.25 MG (XANAX) TAB PO PRN ×2 (10:59→22:30)
--- NOTE | 2016-06-05 11:40 | Occupational Ther Daily Note ---
OT Current Status-Daily Note Subjective Pt. yells out in pain but does not state a pain number. States that her back hurts with movement. Nursing notified. Has been given pain medication. Appearance Pt. in bed. States, "I'm so happy to see you" when OT walks into room. Mental Status/Objective Patient Orientation: Unable to Assess Functional [place] Measure 0=Not Assessed/NA 4=Minimal Assistance 1=Total Assistance 5=Supervision or Setup 2=Maximal Assistance 6=Modified [place] 3=Moderate Assistance 7=Complete [place] ADL-Treatment Functional [place] Measure 0=Not Assessed/NA 4=Minimal Assistance 1=Total Assistance 5=Supervision or Setup 2=Maximal Assistance 6=Modified [place] 3=Moderate Assistance 7=Complete IndependenceIRFPAI Quality Coding Scale 6 Independent with activity with or without an assistive device 5 Patient requires set up or clean up by helper. Patient completes activity by themselves 4 Supervision or touching assist (CGA). [place] provide cues , steadying assist 3 The helper provides less than half the effort to complete the activity 2 The helper provides more than half the effort to complete the activity 1 Dependent. The helper does all the effort to complete an activity 7 Patient refused to complete or attempt activity 9 The patient did not perform the activity before the current illness or injury 88 Not attempted due to Medical conditions or safety concerns Grooming (FIM): 1 (OT attempted to brush pt's hair. Pt. did not attempt or intiate.) Toileting Hygiene (QC): 1 Toileting (FIM): 1 (Pt. incontinent of bowel throughout treatment. Required dependent assistance to cleanse self.) Transfers (B, C, W/C) (FIM): 2 (Max assistance for supine-sit, and sit-stand/ pivot to chair.) Toilet/Commode Transfer (FIM): 2 (Pt. yelling, "I have to poop." Pt. transferred to [facility]. Sat for awhile and able to bear down.) OT began treatment in room with AAROM to right UE. Pt. given instruction to move right UE with cues to sequence and continue with steps. Pt. able to move right UE in all planes. Has limited shoulder function, and will often use left UE to move right UE. Pt. would often close eyes and forget what she has been asked to do. PT came into room. Noted that dressing on foot coming off. Nursing came in and OT/PT facilitated moving leg, rolling in bed so nursing could position and change dressing. Once this was done, transferred pt. to side of be with max assist. PT facilitated upright posture and seated balance while OT facilitated scooting to edge of bed and positioning wheelchair. Transferred with max assist for sit-stand and pivot to chair. Pt. yells out and states, "I'm scared." Went to therapy gym. Attempted to have pt. self propel wheelchair but had difficulty. Went to parallel bars. PT stood in front of pt. while blocking her legs and positioning hips. OT positioned right UE and facilitated upright posture. Stood at bars 3 times x 30 seconds each with max x 2 for upright balance. Pt. requires max encouragement and does not want to do for self. Does not understand importance of getting stronger. Went back to room. Pt. states that she has to go to the bathroom. Transferred with max assist to [facility]. Pt. encouraged to try to go to bathroom. Able to do this somewhat. Dependent for cleansing. One therapist stood with pt. while other therapist cleansed rear fredrick area. Transferred back to bed. Unable to get right LE into bed. All needs met. Education OT Patient Education: Correct positioning, Modified ADL techniques, Progress toward Goal/Update tx plan, Purpose of tx/functional activities, Reviewed precautions, Rehab process, Transfer techniques Teaching Recipient: Patient Teaching Methods: Demonstration, Discussion Response to Teaching: Verbalize Understanding, Return Demonstration OT Short Term Goals Short Term Goals Time Frame: Jun 13, 2016 Eating(FIM): 5 Grooming(FIM): 4 Bathing(FIM): 3 Upper Body Dressing(FIM): 5 Lower Body Dressing(FIM): 4 Toileting(FIM): 3 Transfers (B,C,W/C) (FIM): 3 Toilet/Commode Transfer(FIM): 3 Shower Transfer(FIM): 3 Additional Short Term Goals: 1-Demonstrate ADL Tasks, 2-Verbalize Understanding , 3-ImproveStrength/Dalton 1=Demonstrate adherence to instructed precautions during ADL tasks. 2=Patient will verbalize/demonstrate understanding of assistive devices/ modifications for ADL. 3=Patient will improve strength/tolerance for activity to enable patient to perform ADL's. OT Ornamental Metal Erector Apprentice Goals Ornamental Metal Erector Apprentice Goals Time Frame: Jul 04, 2016 Eating (FIM): 6 Eating (QC): 6 Oral Hygiene (QC): 6 Grooming(FIM): 6 Bathing(FIM): 5 Shower/Bathe Self (QC): 5 Upper Body Dressing(FIM): 5 Upper Body Dressing (QC): 5 Lower Body Dressing(FIM): 5 Lower Body Dressing (QC): 5 On/Off Footwear (QC): 5 Toileting(FIM): 6 Toileting Hygiene (QC): 6 Transfers (B,C,W/C) (FIM): 5 Toilet/Commode Transfer(FIM): 5 Toilet/Commode Transfer (QC): 5 Shower Transfer(FIM): 5 Comprehension(FIM): 3 Expression (FIM): 3 Social Interaction(FIM): 4 Problem Solving(FIM): 3 Memory(FIM): 3 Additional Goals: 1-Demonstrate ADL Tasks, 2-Verbalize Understanding, 3- ImproveStrength/Dalton 1=Demonstrate adherence to instructed precautions during ADL tasks. 2=Patient will verbalize/demonstrate understanding of assistive devices/ modifications for ADL. 3=Patient will improve strength/tolerance for activity to enable patient to perform ADL's. OT Education/Plan Problem List/Assessment Assessment: Decreased Activ Tolerance, Decreased Safety Aware, Decreased UE Strength, Dependent Transfers, Impaired Bed Mobility, Impaired Cognition, Impaired Coordination, Impaired Funct Balance, Impaired I ADL's, Impaired Self- Care Skills, Restricted Funct UE ROM Discharge Recommendations Plan/Recommendations: Continue POC Therapy D/C Recommendations: 24 hr Supervision Treatment Plan/Plan of Care Treatment,Training & Education: Yes Patient would benefit from OT for education, treatment and training to promote independence in ADL's, mobility, safety and/or upper extremity function for ADL' s. Plan of Care: ADL Retraining, Caregiver Training, Cognitive Retraining, Functional Mobility, UE Funct Exercise/Act, Visual/Perceptual Retrain Treatment Duration: Jul 04, 2016 Visits Per Week: 10-12 Minutes/Day (M-F): 60-90 Minutes/Day (Sat/Gallego): prn Agreement: Yes Rehab Potential: Guarded Time/GCodes Start Time: 09:00 Stop Time: 10:15 Total Time Billed (hr/min): 75 Billed Treatment Time 1, EX x 15minutes, ADL x 30minutes, FA x 30minutes [id number] 1, EX no co-treat [id number] ADL x 30minutes, FA x [id number]. Please see above note. MAURICE RAMSO OT Jun 05, 2016 11:40
--- NOTE | 2016-06-05 13:08 | Speech Therapy Daily Note ---
Speech Daily Progress Note Subjective The patient was laying in bed upon entrance. The patient was agreeable to the dysphagia session, however, required maximum verbal prompting for continued participation. Continued poor motivation demonstration throughout therapy. Objective Dysphagia Exercises: Base of tongue retraction, pharyngeal contraction, and laryngeal elevation exercises were initiated on this date. The patient demonstrated poor accuracy with exercises requiring maximum clinician direct modeling, continuous encouragement, and verbal prompting for continued participation. Assessment Assessment Current Status: Poor Progress Treatment Plan Continue Plan of Care Communication Comprehension: 2 Expression: 2 Social Cognition Social Interaction: 2 Problem Solvin Memory: 1 Speech Short Term Goals Short Term Goals Short Term Goals 1. The patient will participate in a full cognitive evaluation for appropriate, functional treatment goals. 2. The patient will tolerate bolus trials of the least restrictive consistency without signs/symptoms of aspiration. 3. Patient will demonstrate swallowing strategies with 80% accuracy, independently. Time Frame-STG: One Week Speech Halfway Goals Database Development Project Manager Goals 1. The patient will demonstrate improved cognitive skills for increased function and safety with ADL's. 2. The patient will tolerate the least restrictive consistency diet without signs/symptoms of aspiration. Time Frame: Four Weeks Comprehension: 3 Expression: 3 Social Interaction: 4 Problem Solvin Memory: 3 Speech-Plan Treatment Plan Speech Therapy Treatment Plan: Continue Plan of Care Treatment Duration: Jul 04, 2016 # of days/week Four to Five Visits Per Week: Four to Five Minutes/Day (M-F): 30 Rehab Potential: Guarded Safety Risks/Education Teaching Recipient: Patient Teaching Methods: Demonstration, Handout, Discussion Response to Teaching: Unable to Return Demonstration Education Topics Provided: Swallowing Exercises Time Speech Therapy Time In: 08:30 Speech Therapy Time Out: 09:00 Total Billed Time: 30 Billed Treatment Time Temo EMILY NARA RODRIGUEZ Jun 05, 2016 13:08
[2016-06-05] MEDS: DIPHENOXYLATE/ATROPINE 2.5MG/0.025MG (LOMOTIL) TAB PO PRN ×2 (13:44→13:45)
--- NOTE | 2016-06-05 14:33 | Physical Therapy Daily Note ---
PT Daily Note-Current Subjective Pt was co-treated with OT due to skilled care need. Pt yells out in pain but does not rate pain. Pt c/o pain in low back and sacral area. Pt has difficulty following directions due to cognitive deficit. Mental Status Patient Orientation: Person, Unable to Assess Attachments: Olivarez Catheter Transfers Functional [place] Measure 0=Not Assessed/NA 4=Minimal Assistance 1=Total Assistance 5=Supervision or Setup 2=Maximal Assistance 6=Modified [place] 3=Moderate Assistance 7=Complete IndependenceIRFPAI Quality Coding Scale 6 Independent with activity with or without an assistive device 5 Patient requires set up or clean up by helper. Patient completes activity by themselves 4 Supervision or touching assist (CGA). [place] provide cues , steadying assist 3 The helper provides less than half the effort to complete the activity 2 The helper provides more than half the effort to complete the activity 1 Dependent. The helper does all the effort to complete an activity 7 Patient refused to complete or attempt activity 9 The patient did not perform the activity before the current illness or injury 88 Not attempted due to Medical conditions or safety concerns Transfers (B, C, W/C) (FIM): 2 Scootin Rollin Roll Left to Right (QC): 2 Supine to/from Sit: 2 Sit to/from Stand: 2 Sit to Lying (QC): 2 Sit to Stand (QC): 2 Chair/[id number]-hs-Uenjq Xfer(QC): 2 Bed to/from Chair: 2 Weight Bearing Weight Bearing Restriction: Full Weight Bearing Location Restriction: LE Bilateral Wheelchair Training Does the Pt Use a Wheelchair?: Yes Wheelchair Distance: 1=up to 49 ft Distance: 30' Wheelchair Level of Assist: 3 Wheel 50 ft with 2 turns (QC): 88 Wheel 150 ft (QC): 88 Type of Wheelchair: Manual Exercises Standing: Sit to Stand Treatments OT began treatment in room with AAROM to right UE. Pt. given instruction to move right UE with cues to sequence and continue with steps. Pt. able to move right UE in all planes. Has limited shoulder function, and will often use left UE to move right UE. Pt. would often close eyes and forget what she has been asked to do. PT came into room. Noted that dressing on foot coming off. Nursing came in and OT/PT facilitated moving leg, rolling in bed so nursing could position and change dressing. Once this was done, transferred pt. to side of be with max assist. PT facilitated upright posture and seated balance while OT facilitated scooting to edge of bed and positioning wheelchair. Transferred with max assist for sit-stand and pivot to chair. Pt. yells out and states, "I'm scared." Went to therapy gym. Attempted to have pt. self propel wheelchair but had difficulty. Went to parallel bars. PT stood in front of pt. while blocking her legs and positioning hips. OT positioned right UE and facilitated upright posture. Stood at bars 3 times x 30 seconds each with max x 2 for upright balance. Pt. requires max encouragement and does not want to do for self. Does not understand importance of getting stronger. Went back to room. Pt. states that she has to go to the bathroom. Transferred with max assist to [facility]. Pt. encouraged to try to go to bathroom. Able to do this somewhat. Dependent for cleansing. One therapist stood with pt. while other therapist cleansed rear fredrick area. Transferred back to bed. Unable to get right LE into bed. All needs met. Assessment Current Status: Fair Progress Pt continues to yell out in pain during transfers and while standing. Pt is able to dial painter //bars with assistance from PT & OT. PT Short Term Goals Short Term Goals Time Frame: Jun 13, 2016 Transfers (B,C,W/C) (FIM): 3 Gait (FIM): 1 (hops only) Wheelchair (FIM): 4 Wheelchair distance (FIM): 3=150 ft Wheelchair Distance: 50' PT Synthetic Soil Blocks Pulper Goals Synthetic Soil Blocks Pulper Goals PT Synthetic Soil Blocks Pulper Goals Time Frame: Jun 27, 2016 Transfers (B,C,W/C) (FIM): 6 Sit to Lying (QC): 6 Lying-Sitting on Side/Bed(QC): 6 Sit to Stand (QC): 6 Rollin Roll Left to Right (QC): 6 Chair/Qkv-dv-Alycv Xfer(QC): 6 Car Transfer (QC): 5 Does the Patient Walk: Yes Gait (FIM): 2 Gait distance (FIM): 1=up to 49 ft Distance: 10 ft hopping Walk 10 feet (QC): 4 Walk 10ft-Uneven Surface(QC): 88 Walk 50ft with 2 Turns (QC): 88 Walk 150 ft (QC): 88 Gait Level of Assist: 4 Gait Assistive Device: FWW Does the Pt use WC or Scooter?: Yes Wheelchair (FIM): 6 Wheelchair distance (FIM): 3=150 ft Wheelchair Level of Assist: 6 Wheel 50 feet with 2 turns (QC: 6 Stairs (FIM): 88 (usafe to attempt) 1 Step (curb) (QC): 88 4 Steps (QC): 88 12 Steps (QC): 88 Picking up an Object (QC): 88 (unsafe) PT Plan Problem List Problem List: Activity Tolerance, Functional Strength, Safety, Balance, Gait, Transfer, Bed Mobility Treatment/Plan Treatment Plan: Continue Plan of Care Treatment Plan: Bed Mobility, Education, Functional Activity Dalton, Functional Strength, Group Therapy, Gait, Safety, Therapeutic Exercise, Transfers Treatment Duration: Jun 27, 2016 Visits Per Week: 10-15 Minutes/Day (M-F): 60-90 Minutes/Day (Sat/Gallego): prn Safety Risks/Education Patient Education: Transfer Techniques, Correct Positioning, Safety Issues Teaching Recipient: Patient Teaching Methods: Audiovisual Response to Teaching: Reinforcement Needed Time/GCodes Time In: 915 Time Out: 1015 Total Billed Treatment Time: 60 Total Billed Treatment visit, FA X4 (60m) Co-treat w/OT 60m due to need for skilled care ELA SIEGEL CLAIMS MANAGER Jun 05, 2016 14:33
--- NOTE | 2016-06-05 15:57 | Physical Therapy Daily Note ---
PT Daily Note-Current Subjective Pt supine sitting up in bed upon arrival. Pt reports pain of 7/10 in low back and sacral area. Notified nursing but no meds could be given at this time. Pt agreed to supine Ex for tx. Pain Numeric Pain Scale: 7 Location: Lower Location Body Site: Back Pain Description: Ache Mental Status Patient Orientation: Person, Unable to Assess Attachments: Olivarez Catheter Transfers Functional [place] Measure 0=Not Assessed/NA 4=Minimal Assistance 1=Total Assistance 5=Supervision or Setup 2=Maximal Assistance 6=Modified [place] 3=Moderate Assistance 7=Complete IndependenceIRFPAI Quality Coding Scale 6 Independent with activity with or without an assistive device 5 Patient requires set up or clean up by helper. Patient completes activity by themselves 4 Supervision or touching assist (CGA). [place] provide cues , steadying assist 3 The helper provides less than half the effort to complete the activity 2 The helper provides more than half the effort to complete the activity 1 Dependent. The helper does all the effort to complete an activity 7 Patient refused to complete or attempt activity 9 The patient did not perform the activity before the current illness or injury 88 Not attempted due to Medical conditions or safety concerns Exercises Supine Ex: Quad Set, Heel Slides, Straight leg raise, Hip abd/add Supine Reps: 15 Treatments Pt completed supine Ex in bed. PT assisted pt with RLE in lifting off bed so wound on foot would not tear. Pt reported pain of 7/10 during tx, nursing was notified. Pt was left with all needs met at end of tx. Assessment Current Status: Fair Progress Pt still yells with pain during supine EX. Pt is able to follow directions better this afternoon. PT Short Term Goals Short Term Goals Time Frame: Jun 13, 2016 Transfers (B,C,W/C) (FIM): 3 Gait (FIM): 1 (hops only) Wheelchair (FIM): 4 Wheelchair distance (FIM): 3=150 ft Wheelchair Distance: 30' PT Mcfp Goals Head Piece Assembler Goals PT Head Piece Assembler Goals Time Frame: Jun 27, 2016 Transfers (B,C,W/C) (FIM): 6 Sit to Lying (QC): 6 Lying-Sitting on Side/Bed(QC): 6 Sit to Stand (QC): 6 Rollin Roll Left to Right (QC): 6 Chair/Wlu-if-Ileqw Xfer(QC): 6 Car Transfer (QC): 5 Does the Patient Walk: Yes Gait (FIM): 2 Gait distance (FIM): 1=up to 49 ft Distance: 10 ft hopping Walk 10 feet (QC): 4 Walk 10ft-Uneven Surface(QC): 88 Walk 50ft with 2 Turns (QC): 88 Walk 150 ft (QC): 88 Gait Level of Assist: 4 Gait Assistive Device: FWW Does the Pt use WC or Scooter?: Yes Wheelchair (FIM): 6 Wheelchair distance (FIM): 3=150 ft Wheelchair Level of Assist: 6 Wheel 50 feet with 2 turns (QC: 6 Stairs (FIM): 88 (usafe to attempt) 1 Step (curb) (QC): 88 4 Steps (QC): 88 12 Steps (QC): 88 Picking up an Object (QC): 88 (unsafe) PT Plan Problem List Problem List: Activity Tolerance, Functional Strength, Safety, Balance, Gait, Transfer, Bed Mobility Treatment/Plan Treatment Plan: Continue Plan of Care Treatment Plan: Bed Mobility, Education, Functional Activity [place], Functional Strength, Group Therapy, Gait, Safety, Therapeutic Exercise, Transfers Treatment Duration: Jun 27, 2016 Visits Per Week: 10-15 Minutes/Day (M-F): 60-90 Minutes/Day (Sat/Gallego): prn Safety Risks/Education Patient Education: Transfer Techniques, Correct Positioning, Safety Issues Teaching Recipient: Patient Teaching Methods: Audiovisual Response to Teaching: Reinforcement Needed Time/GCodes Time In: 1440 Time Out: 1455 Total Billed Treatment Time: 15 Total Billed Treatment visit, EX (15m) ELA SIEGEL PTA Jun 05, 2016 15:57
[2016-06-05 18:41] VITALS: BP 101/60
[2016-06-05] MEDS: ENOXAPARIN 40 MG/0.4 ML (LOVENOX) SYR SC SCH (20:57)
[2016-06-05] MEDS: AMITRIPTYLINE 50 MG (ELAVIL) TAB PO SCH (20:58)
[2016-06-05] MEDS: OLANZapine 5 MG ODT (ZyPREXA ZYDIS) PO SCH (21:29)
[2016-06-06 06:00] VITALS: BP 97/59
[2016-06-06] MEDS: DIPHENOXYLATE/ATROPINE 2.5MG/0.025MG (LOMOTIL) TAB PO PRN ×3 (06:30→17:24)
[2016-06-06] MEDS: HYDROcodone/APAP 10 MG/325 MG (LORTAB) TAB PO PRN ×2 (06:30→17:25)
[2016-06-06] MEDS: ALPRAZolam 0.25 MG (XANAX) TAB PO PRN ×2 (06:31→17:24)
--- NOTE | 2016-06-06 08:21 | PM & R (SOAP) Progress Note ---
Subjective Subjective/Events-last exam Patient was seen in her room this AM Patient Max assist for transfers Discussed case with RN who indicates that patient didnt sleep well last night Patient is calling out less and appears less agitated but has difficulty participating in full therapies Olivarez catheter remains in due to poor skin condition and debilitated state. Objective Exam Last Set of Vital Signs Vital Signs Date Time Temp Pulse Resp B/P Pulse Ox O2 Delivery O2 Flow Rate FiO2 06/06/16 06:00 98.4 92 22 97/59 90 Room Air 06/02/16 19:40 2.00 Capillary Refill : Greater Than 3 Seconds I&O Intake and Output 06/06/16 00:00 Intake Total 1550 ml Output Total 1650 ml Balance -100 ml Intake Oral 1550 ml Output Urine Total 1650 ml # Bowel Movements 7 General: Moderate Distress HEENT: Atraumatic Neck: No JVD Lungs: Normal Air Movement Heart: Regular Rate, No Murmurs Abdomen: Soft Extremities: Other (L AKA with healing, intact incision. Plapable R DP pulse. ) Skin: Other (Sacral wound: 2.5 x 4.8 x 0.6 cm; base 75% slough, 25% granulation , mod. thin, cormier drainage. R 3rd toe: 2.3 x 1.7 x 0.2 cm; 100% black eschar, no drainage.) Neuro: Other (generalized weakness) Psych/Mental Status: Other (flat affect) Other physical findings Indwellin Olivarez catheter to DD Results Lab Laboratory Tests 06/03/16 11:15: Glucometer 77 06/04/16 05:48: Alanine Aminotransferase (ALT/SGPT) < 6, Albumin 1.8L, Alkaline Phosphatase 125 , Anion Gap 11, Aspartate Amino Transf (AST/SGOT) 12, BUN/Creatinine Ratio 25, Blood Urea Nitrogen 13, Calcium Level 7.1L, Carbon Dioxide Level 25, Chloride Level 105, Creatinine 0.53L, Estimat Glomerular Filtration Rate > 60, Glucose Level 76, Hematocrit 24L, Hemoglobin 7.4L, Magnesium Level 1.5L, Mean Corpuscular Hemoglobin 28, Mean Corpuscular Hemoglobin Concent 31L, Mean Corpuscular Volume 90, Mean Platelet Volume 10.4, Platelet Count 213, Potassium Level 2.9L, Red Blood Count 2.62L, Red Cell Distribution Width 17.8H, Sodium Level 141, Total Bilirubin 0.3, Total Protein 4.6L, White Blood Count 7.5 06/05/16 06:06: Glucometer 68L 06/05/16 06:46: Glucometer 87 Microbiology 05/30/16 C. difficile DNA Amplification - Final, Complete 05/30/16 C. difficile GDH Antigen & Toxins - Final, Complete Assessment/Plan Assessment S/P left aka S/P toe amputations rt foor WBAT RT Heel Underweight with hx of Substance abuse Hypocalcemia Hypokalemia mild Anemia Dysphagia on modified consistency diet-appreciate ST note sacral pressure sore as per DR Hernandez and his RX Plan Continue PT/OT/ST Patient late arrival from OSH last evening and assessments ongoing Replace electrolytes Nutritional consult Behav Health consult-done appreciate his recs WBS RLE clarified D/C Olivarez when more mobile F/U Labs F/U with DR Varela PRN F/U with Case management re patient obtaining a Medical Card as patient has no current Medical Insurance. F/U with DR hernandez TRial of lowdose antipsychotic _zyprexa-done See orders. Team Conference held yesterday-See report for full functional update and POC and ELOS Discharge set for tomorrow tentatively to a local NH-Will confirm with MAHENDRA CALDWELL MD Jun 06, 2016 08:21
[2016-06-06] MEDS: MAGNESIUM OXIDE (MAG-OX)400 MG TAB PO SCH ×3 (09:23→21:06)
[2016-06-06] MEDS: PARoxetine 10 MG (PAXIL) TAB PO SCH (09:23)
[2016-06-06] MEDS: POVIDONE (BETADINE) 10% SOLN 240 ML BTL TOP SCH (09:24)
--- NOTE | 2016-06-06 10:12 | Progress Note (SOAP) ---
Subjective Subjective/Events-last exam patient having diarrhea. Patient still weak. Patient needs more PT and OT Objective Exam Vital Signs Date Time Temp Pulse Resp B/P Pulse Ox O2 Delivery O2 Flow Rate FiO2 06/06/16 06:00 98.4 92 22 97/59 90 Room Air 06/05/16 21:00 Room Air 06/05/16 18:41 97.9 90 18 101/60 94 Room Air I & O 06/06/16 07:00 Intake Total 1150 ml Output Total 1850 ml Balance -700 ml Capillary Refill : Greater Than 3 Seconds General Appearance: Thin Results Lab Microbiology 05/30/16 C. difficile DNA Amplification - Final, Complete 05/30/16 C. difficile GDH Antigen & Toxins - Final, Complete Assessment/Plan Assessment/Plan Assess & Plan/Chief Complaint fragile. Weakness. New-onset diabetes. Skin breakdown. . 05/31/16. . Weakness. New-onset diabetes. Hypomagnesemia. Anemia to monitor. . 06/03/16. Patient anxious. Patient complaining of pain. Patient fragile. Weakness. Diabetes area Skin breakdown. . 06/04/16. Patient feels tired. Fragile. Weakness. Diabetes. Skin breakdown. . 06/05/16. Weakness. Sacral breakdown with 2, tunnels. Weakness. Hypomagnesemia`. Hypokalemia.. . 05/2616. Weakness sacral breakdown. Diagnosis/Problems: Clinical Quality Measures DVT/VTE Risk/Contraindication: Risk Factor Score Per Nursin RFS Level Per Nursing on Admit: 4+=Very High IBRAHIMA PATTON DO Jun 06, 2016 10:12
--- NOTE | 2016-06-06 10:50 | Occupational Ther Daily Note ---
OT Current Status-Daily Note Subjective Pt. yells out that her buttocks "hurts." Does not give a pain rating. Pt. has had pain medication. Appearance Pt. is in bed. Agrees to treatment. Mental Status/Objective Patient Orientation: Unable to Assess Functional [place] Measure 0=Not Assessed/NA 4=Minimal Assistance 1=Total Assistance 5=Supervision or Setup 2=Maximal Assistance 6=Modified [place] 3=Moderate Assistance 7=Complete [place] Pt. continually grunts and yells. Does not state specifically why she does it. ADL-Treatment Functional [place] Measure 0=Not Assessed/NA 4=Minimal Assistance 1=Total Assistance 5=Supervision or Setup 2=Maximal Assistance 6=Modified [place] 3=Moderate Assistance 7=Complete IndependenceIRFPAI Quality Coding Scale 6 Independent with activity with or without an assistive device 5 Patient requires set up or clean up by helper. Patient completes activity by themselves 4 Supervision or touching assist (CGA). [place] provide cues , steadying assist 3 The helper provides less than half the effort to complete the activity 2 The helper provides more than half the effort to complete the activity 1 Dependent. The helper does all the effort to complete an activity 7 Patient refused to complete or attempt activity 9 The patient did not perform the activity before the current illness or injury 88 Not attempted due to Medical conditions or safety concerns On/Off Footwear (QC): 1 (Dependent for therapy to don cast shoe.) Toileting (FIM): 1 (Pt. is incontinent of bowel throughout treatment. Requires dependent assist to cleanse rear fredrick area.) Transfers (B, C, W/C) (FIM): 1 (Pt. requires max assist for supine-sit and sit- stand. However, at times requires assistance of another person to facilitate proper movement to get to where she needs to be.) Other Treatment OT/PT co-treat. Pt. transfers supine-sit with max assist. Note that she is incontinent of bowel. PT facilitates transfer for sit-stand while OT facilitates toileting and fredrick care. Pt. dependent for this and yells out continually. Pt. requires max assist to get into wheelchair. Went to therapy gym. Pt. seems to have no awareness of her current situation and still asks where her leg is. Stood x 5 in parallel bars with increased break time in between transfers. Pt. stood in front blocking right knee while OT stood on right side and facilitated hand placement on bars. OT also facilitated glute muscles and upright posture. Pt. able to maintain each stand approximately 30 seconds. Yells out and request to sit back down. Pt. incontinent of bowel again twice in chair. Requires PT to stand pt. while OT cleansed rear fredrick area. Gave pt. special cues and instructions to stand upright. Started to go back to room. Initiated wheelchair propulsion with pt. OT facilitated right arm placement on wheel and assisted with pushing wheel forward. Pt. unable to sequence this at any capacity, and therefore only used her left arm. Transferred back to bed with all needs met. Alarm, bedrails in place. Pt. has call light. Education OT Patient Education: Correct positioning, Modified ADL techniques, Progress toward Goal/Update tx plan, Purpose of tx/functional activities, Reviewed precautions, Rehab process, Transfer techniques, W/C management Teaching Recipient: Patient Teaching Methods: Demonstration, Discussion Response to Teaching: Verbalize Understanding, Return Demonstration OT Short Term Goals Short Term Goals Time Frame: Jun 13, 2016 Eating(FIM): 5 Grooming(FIM): 4 Bathing(FIM): 3 Upper Body Dressing(FIM): 5 Lower Body Dressing(FIM): 4 Toileting(FIM): 3 Transfers (B,C,W/C) (FIM): 3 Toilet/Commode Transfer(FIM): 3 Shower Transfer(FIM): 3 Additional Short Term Goals: 1-Demonstrate ADL Tasks, 2-Verbalize Understanding , 3-ImproveStrength/[place] 1=Demonstrate adherence to instructed precautions during ADL tasks. 2=Patient will verbalize/demonstrate understanding of assistive devices/ modifications for ADL. 3=Patient will improve strength/tolerance for activity to enable patient to perform ADL's. OT Assisted Goals [place] Captain Goals Time Frame: Jul 04, 2016 Eating (FIM): 6 Eating (QC): 6 Oral Hygiene (QC): 6 Grooming(FIM): 6 Bathing(FIM): 5 Shower/Bathe Self (QC): 5 Upper Body Dressing(FIM): 5 Upper Body Dressing (QC): 5 Lower Body Dressing(FIM): 5 Lower Body Dressing (QC): 5 On/Off Footwear (QC): 5 Toileting(FIM): 6 Toileting Hygiene (QC): 6 Transfers (B,C,W/C) (FIM): 5 Toilet/Commode Transfer(FIM): 5 Toilet/Commode Transfer (QC): 5 Shower Transfer(FIM): 5 Comprehension(FIM): 3 Expression (FIM): 3 Social Interaction(FIM): 4 Problem Solving(FIM): 3 Memory(FIM): 3 Additional Goals: 1-Demonstrate ADL Tasks, 2-Verbalize Understanding, 3- ImproveStrength/[place]ton 1=Demonstrate adherence to instructed precautions during ADL tasks. 2=Patient will verbalize/demonstrate understanding of assistive devices/ modifications for ADL. 3=Patient will improve strength/tolerance for activity to enable patient to perform ADL's. OT Education/Plan Problem List/Assessment Assessment: Decreased Activ Tolerance, Decreased UE Strength, Dependent Transfers, Impaired Bed Mobility, Impaired Cognition, Impaired Coordination, Impaired Funct Balance, Impaired I ADL's, Impaired Self-Care Skills, Restricted Funct UE ROM Discharge Recommendations Plan/Recommendations: Continue POC Therapy D/C Recommendations: 24 hr Supervision Treatment Plan/Plan of Care Treatment,Training & Education: Yes Patient would benefit from OT for education, treatment and training to promote independence in ADL's, mobility, safety and/or upper extremity function for ADL' s. Plan of Care: ADL Retraining, Caregiver Training, Cognitive Retraining, Functional Mobility, UE Funct Exercise/Act, Visual/Perceptual Retrain Treatment Duration: Jul 04, 2016 Visits Per Week: 10-12 Minutes/Day (M-F): 60-90 Minutes/Day (Sat/Gallego): prn Agreement: Yes Rehab Potential: Guarded Time/GCodes Start Time: 09:00 Stop Time: 10:00 Total Time Billed (hr/min): 60 Billed Treatment Time 1, FA x 4 Co-treat with PT. Please see above note for designated roles. MAURICE RAMOS OT Jun 06, 2016 10:50
--- NOTE | 2016-06-06 11:13 | Physical Therapy Daily Note ---
PT Daily Note-Current Subjective Patient in bed pre tx, agrees to PT, will be co-treating with OT to work on mobility while OT works on UE and ADL's and cleaning up Pain Comment: pain on bottom, will not rate Appearance Patient BTB post tx with nurse call, phone, tray, bed alarm on, all needs met. Mental Status Patient Orientation: Confused Attachments: [place]arez Catheter Transfers Functional [place] Measure 0=Not Assessed/NA 4=Minimal Assistance 1=Total Assistance 5=Supervision or Setup 2=Maximal Assistance 6=Modified [place] 3=Moderate Assistance 7=Complete IndependenceIRFPAI Quality Coding Scale 6 Independent with activity with or without an assistive device 5 Patient requires set up or clean up by helper. Patient completes activity by themselves 4 Supervision or touching assist (CGA). [place] provide cues , steadying assist 3 The helper provides less than half the effort to complete the activity 2 The helper provides more than half the effort to complete the activity 1 Dependent. The helper does all the effort to complete an activity 7 Patient refused to complete or attempt activity 9 The patient did not perform the activity before the current illness or injury 88 Not attempted due to Medical conditions or safety concerns Transfers (B, C, W/C) (FIM): 1 Scootin Rollin Roll Left to Right (QC): 2 Supine to/from Sit: 1 Sit to/from Stand: 1 Sit to Lying (QC): 1 Sit to Stand (QC): 1 Chair/[id number]-Kwkvu Xfer(QC): 1 Bed to/from Chair: 1 Car Transfer (QC): 88 Patient is dependent for transfers and bed mobility but can assist with rolling which is usually mod A Wheelchair Training Wheelchair (FIM): 2 Distance: 50' Wheelchair Level of Assist: 2 Wheel 50 ft with 2 turns (QC): 88 Wheel 150 ft (QC): 88 Type of Wheelchair: Manual Patient was able to assist with her left hand and arm to propel a manual wheelchair but still needed max assist. Balance Picking up an Object (QC): 88 Exercises Patient stood in the parallel bars x 5 with max assist from both PT and OT, OT facilitated right UE and did pericare for another BM. Patient fatigues quickly and needs frequent rest breaks. Treatments Patient is dependent for bed mobility and transfers, PT performed transfer and sit to stand while OT performed pericare, got into wheelchair and performed some WC mobility, stood in parallel bars, and went back to bed. Patient has frequent uncontrolled stools and has a lot of pain in her backside. She has poor motivation, is confused often, and yells out frequently. Assessment Current Status: Poor Progress No changes in mobility. PT Short Term Goals Short Term Goals Time Frame: Jun 13, 2016 Transfers (B,C,W/C) (FIM): 3 Gait (FIM): 1 (hops only) Wheelchair (FIM): 4 Wheelchair distance (FIM): 3=150 ft Wheelchair Distance: 30' PT [employer] H[employer] Developer Goals Half-Way Goals PT Half-Way Goals Time Frame: Jun 27, 2016 Transfers (B,C,W/C) (FIM): 6 Sit to Lying (QC): 6 Lying-Sitting on Side/Bed(QC): 6 Sit to Stand (QC): 6 Rollin Roll Left to Right (QC): 6 Chair/Jod-ac-Mkrbr Xfer(QC): 6 Car Transfer (QC): 5 Does the Patient Walk: Yes Gait (FIM): 2 Gait distance (FIM): 1=up to 49 ft Distance: 10 ft hopping Walk 10 feet (QC): 4 Walk 10ft-Uneven Surface(QC): 88 Walk 50ft with 2 Turns (QC): 88 Walk 150 ft (QC): 88 Gait Level of Assist: 4 Gait Assistive Device: FWW Does the Pt use WC or Scooter?: Yes Wheelchair (FIM): 6 Wheelchair distance (FIM): 3=150 ft Wheelchair Level of Assist: 6 Wheel 50 feet with 2 turns (QC: 6 Stairs (FIM): 88 (usafe to attempt) 1 Step (curb) (QC): 88 4 Steps (QC): 88 12 Steps (QC): 88 Picking up an Object (QC): 88 (unsafe) PT Plan Problem List Problem List: Activity Tolerance, Functional Strength, Safety, Balance, Gait, Transfer, Bed Mobility, ROM Treatment/Plan Treatment Plan: Continue Plan of Care Treatment Plan: Bed Mobility, Education, Functional Activity [place], Functional Strength, Group Therapy, Gait, Safety, Therapeutic Exercise, Transfers Treatment Duration: Jun 27, 2016 Visits Per Week: 10-15 Minutes/Day (M-F): 60-90 Minutes/Day (Sat/Galleg[place]): prn Safety Risks/Education Patient Education: Transfer Techniques, Correct Positioning, W/C Management, Safety Issues Teaching Recipient: Patient Teaching Methods: Demonstration, Discussion Response to Teaching: Reinforcement Needed Time/GCodes Time In: 900 Time Out: 1000 Total Billed Treatment Time: 60 Total Billed Treatment 1 visit FA 60 min co-treated with OT for the whole 60 min ALONSO FARIA PT Jun 06, 2016 11:13
--- NOTE | 2016-06-06 11:57 | Diagnostic Imaging Report ---
EXAM: Modified barium swallow. INDICATION: Dysphagia. COMPARISON: There are no prior studies available for comparison. FINDINGS: This exam was performed in the presence pathologist, Natalie Chow. The patient was given honey and nectar consistency barium impregnated substances to swallow. There was penetration without cough with both substances. IMPRESSION: The swallowing mechanism is compromised as there was penetration with both the nectar and honey consistency barium. Dictated by: Dictated on workstation # [id number]
--- NOTE | 2016-06-06 12:09 | ST Mod Barium Swallow ---
Speech Evaluation-General Medical Diagnosis ARF, Rhabdo, amputation Onset Date: May 30, 2016 Therapy Diagnosis Therapy Diagnosis: Moderate Pharyngeal Dysphagia Precautions Precautions: Aspiration Precautions/Isolations: Aspiration, Fall Prevention, Standard Precautions, Pressure Ulcer Referral Referring Physician: Dr. Lopez Reason for Referral: Evaluation/Treatment Modified Barium Swallow Evaluation Medical History Pertinent Medical History: COPD, DM, Smoking Reviewed History: Yes Social History Current Living Status: Spouse Speech Mod Barium Swallow Prior Level of Function Prior to the video swallow evaluation on this date, the patient was receiving a pureed diet with honey-thick liquids. The patient was unable to report the rationale or time line behind the modified diet to the clinician. Oral Motor Skills Dentition Comments: Patient is edentulous. Lingual Protrusion: Normal Lingual ROM: Normal Lingual Strength: Abnormal (Reduced lingual strength bilaterally.) Velum: Normal Volitional Dry Swallow: Yes Voluntary Cough: Yes (Patient's cough is weak and breathy, unproductive.) Can Clear Throat Volitionally: Yes Textures-Lateral View Lateral View Food Presentation: Thin Liquid via Spoon, [place] Liquid via Spoon , Honey Liquid via Spoon, Honey Liquid via Cup, Pureed Solids Oral Phase Labial Closure: No Impairment (WFL) Bolus Formation Pooling L/R: No Impairment (WFL) Bolus Formation Placement: No Impairment (WFL) Solid consistencies were deferred secondary to patient's edentulous state. A/P Lingual Propulsion: Moderate Impairment (The patient demonstrated reduced coordination with posterior transfer of bolus material. Several "pumping" motions were demonstrated prior to trigger of the pharyngeal swallow.) Lingual Movement: Mild Impairment (As noted above, the patient demonstrated reduced coordination with lingual posterior movement in attempts to move bolus material to the posterior oral cavity for trigger of the pharyngeal swallow.) Oral Phase Residue: Mild Impairment (Residual material remained with all consistencies tested along the lingual surface and palate.) Pharyngeal Phase Swallow Response: Moderate Impairment (Bolus material reached the vallecular space (and remained for approximately five seconds) prior to initiation of the pharyngeal swallow.) Base of Tongue: Moderate Impairment Epiglottic Movement: Moderate Impairment Laryngeal Elevation: Moderate Impairment Vallecular Residue: Moderate (With all consistencies tested.) Pharyngeal Wall Residue: Moderate Piriform Sinus Residue: Mild (With all consistencies tested.) Laryngeal Penetration: Moderate Aspiration Observations: Mild Other Pharyngeal Observations: Moderate, deep laryngeal penetration occurred with thin liquid and nectar-thick liquid (via spoon) to the level of the vocal cords during the swallow. Trace aspiration of thin liquid and nectar-thick liquid is suspected (silent) following the swallow as residual material was visualized in the proximal trachea post swallow, however, due to the patient's consistent movement, the aspiration event was not visualized by the clinician. The patient was unable to clear the penetrated material from the laryngeal vestibule with a cued cough (weak). Trace, transient laryngeal penetration occurred with honey-thick liquid, however, no aspiration occurred. No laryngeal penetration or aspiration occurred with puree materials tested. Performed-A/P View Not Applicable/Performed Summary/Impressions Oral Phase Impression: Moderate Impairment (Moderate oropharyngeal dysphagia) The patient demonstrated moderate oropharyngeal dysphagia characterized by reduced lingual coordination, delayed pharyngeal swallow onset, decreased base of tongue retraction, reduced pharyngeal contractions, decreased laryngeal elevation, and reduced airway protection in the presence of bolus material. Deep laryngeal penetration with suspected trace silent aspiration occurred with thin liquid and nectar-thick liquid during the swallow. No aspiration occurred with honey-thick liquid or puree consistencies tested. 1. Puree consistency diet with honey-thick liquids, as tolerated. 2. Small bites and sips. 3. No straws. 4. Crush medication and place in puree for administration. 5. Alert and upright for all PO. 5. Continue dysphagia exercises, as directed. Speech Short Term Goals Short Term Goals Short Term Goals 1. The patient will participate in a full cognitive evaluation for appropriate, functional treatment goals. 2. The patient will tolerate bolus trials of the least restrictive consistency without signs/symptoms of aspiration. 3. Patient will demonstrate swallowing strategies with 80% accuracy, independently. Time Frame-STG: One Week Speech Senior Care Goals Senior Care Goals 1. The patient will demonstrate improved cognitive skills for increased function and safety with ADL's. 2. The patient will tolerate the least restrictive consistency diet without signs/symptoms of aspiration. Time Frame: Four Weeks Comprehension: 3 Expression: 3 Social Interaction: 4 Problem Solvin Memory: 3 Speech-Plan Treatment Plan Speech Therapy Treatment Plan: Continue Plan of Care Treatment Duration: Jul 04, 2016 # of days/week Four to Five Visits Per Week: Four to Five Minutes/Day (M-F): 30 Rehab Potential: Guarded Safety Risks/Education Teaching Recipient: Patient Teaching Methods: Discussion Response to Teaching: Reinforcement Needed Education Topics Provided: Modified Barium Results Time Speech Therapy Time In: 10:15 Speech Therapy Time Out: 10:45 Total Billed Time: 30 Billed Treatment Time 1, NARA COELLO Jun 06, 2016 12:09
--- NOTE | 2016-06-06 12:35 | Occupational Ther Daily Note ---
OT Current Status-Daily Note Subjective Pt. yells that her bottom hurts during fredrick cleansing. Does not state a number. Has been given pain medication. Appearance Team here to get pt. for swallow study. OT assists with toileting and transfer. Mental Status/Objective Patient Orientation: Unable to Assess Functional [place] Measure 0=Not Assessed/NA 4=Minimal Assistance 1=Total Assistance 5=Supervision or Setup 2=Maximal Assistance 6=Modified [place] 3=Moderate Assistance 7=Complete [place] ADL-Treatment Functional [place] Measure 0=Not Assessed/NA 4=Minimal Assistance 1=Total Assistance 5=Supervision or Setup 2=Maximal Assistance 6=Modified [place] 3=Moderate Assistance 7=Complete IndependenceIRFPAI Quality Coding Scale 6 Independent with activity with or without an assistive device 5 Patient requires set up or clean up by helper. Patient completes activity by themselves 4 Supervision or touching assist (CGA). [place] provide cues , steadying assist 3 The helper provides less than half the effort to complete the activity 2 The helper provides more than half the effort to complete the activity 1 Dependent. The helper does all the effort to complete an activity 7 Patient refused to complete or attempt activity 9 The patient did not perform the activity before the current illness or injury 88 Not attempted due to Medical conditions or safety concerns Toileting Hygiene (QC): 1 Toileting (FIM): 1 Transfers (B, C, W/C) (FIM): 2 Team here with special chair to get pt. to swallow study. Pt. has been incontinent of bowel. OT facilitates rolling in bed and hand placement while nurse aide cleanses rear fredrick area. Pt. unable to reach back to cleanse self. Transferred pt. supine-sit with max assist. Pt. yelling out. Does not understand what she is to do, even with max cues. Pt. encouraged to hold OT's waist with left UE. Stood with max assist and pivoted to chair. Pt. unable to assist with reaching for chair. Max x 2 to position self in chair upright. Pt. with team. Education OT Patient Education: Correct positioning, Modified ADL techniques, Progress toward Goal/Update tx plan, Purpose of tx/functional activities, Reviewed precautions, Transfer techniques Teaching Recipient: Patient Teaching Methods: Demonstration, Discussion Response to Teaching: Verbalize Understanding, Return Demonstration OT Short Term Goals Short Term Goals Time Frame: Jun 13, 2016 Eating(FIM): 5 Grooming(FIM): 4 Bathing(FIM): 3 Upper Body Dressing(FIM): 5 Lower Body Dressing(FIM): 4 Toileting(FIM): 3 Transfers (B,C,W/C) (FIM): 3 Toilet/Commode Transfer(FIM): 3 Shower Transfer(FIM): 3 Additional Short Term Goals: 1-Demonstrate ADL Tasks, 2-Verbalize Understanding , 3-ImproveStrength/[place] 1=Demonstrate adherence to instructed precautions during ADL tasks. 2=Patient will verbalize/demonstrate understanding of assistive devices/ modifications for ADL. 3=Patient will improve strength/tolerance for activity to enable patient to perform ADL's. OT Screedman/Laborer Goals Screedman/Laborer Goals Time Frame: Jul 04, 2016 Eating (FIM): 6 Eating (QC): 6 Oral Hygiene (QC): 6 Grooming(FIM): 6 Bathing(FIM): 5 Shower/Bathe Self (QC): 5 Upper Body Dressing(FIM): 5 Upper Body Dressing (QC): 5 Lower Body Dressing(FIM): 5 Lower Body Dressing (QC): 5 On/Off Footwear (QC): 5 Toileting(FIM): 6 Toileting Hygiene (QC): 6 Transfers (B,C,W/C) (FIM): 5 Toilet/Commode Transfer(FIM): 5 Toilet/Commode Transfer (QC): 5 Shower Transfer(FIM): 5 Comprehension(FIM): 3 Expression (FIM): 3 Social Interaction(FIM): 4 Problem Solving(FIM): 3 Memory(FIM): 3 Additional Goals: 1-Demonstrate ADL Tasks, 2-Verbalize Understanding, 3- ImproveStrength/[place] 1=Demonstrate adherence to instructed precautions during ADL tasks. 2=Patient will verbalize/demonstrate understanding of assistive devices/ modifications for ADL. 3=Patient will improve strength/tolerance for activity to enable patient to perform ADL's. OT Education/Plan Problem List/Assessment Assessment: Decreased Activ Tolerance, Decreased Safety Aware, Decreased UE Strength, Dependent Transfers, Impaired Bed Mobility, Impaired Cognition, Impaired Coordination, Impaired Funct Balance, Impaired I ADL's, Impaired Self- Care Skills, Restricted Funct UE ROM Discharge Recommendations Plan/Recommendations: Continue POC Therapy D/C Recommendations: 24 hr Supervision Target Placement Pt. requires 24 hour assistance and 24 hour nursing care. Treatment Plan/Plan of Care Treatment,Training & Education: Yes Patient would benefit from OT for education, treatment and training to promote independence in ADL's, mobility, safety and/or upper extremity function for ADL' s. Plan of Care: ADL Retraining, Caregiver Training, Cognitive Retraining, Functional Mobility, UE Funct Exercise/Act, Visual/Perceptual Retrain Treatment Duration: Jul 04, 2016 Visits Per Week: 10-12 Minutes/Day (M-F): 60-90 Minutes/Day (Sat/Gallego): prn Agreement: Yes Rehab Potential: Guarded Time/GCodes Start Time: 10:15 Stop Time: 10:30 Total Time Billed (hr/min): 15 Billed Treatment Time 1, ADL x 1 MAURICE RAMOS OT Jun 06, 2016 12:35
--- NOTE | 2016-06-06 16:02 | Physical Therapy Daily Note ---
PT Daily Note-Current Subjective Pt is laying supine in bed upon arrival. Pt reports needing to use BSC for BM. Pt was very agitated during tx. Pt agrees to PT for toilet transferring. Pain Numeric Pain Scale: 7 Location: Dorsal Location Body Site: Back Pain Description: Ache Mental Status Patient Orientation: Person, Confused Attachments: PEG Tube Transfers Functional Mumford Measure 0=Not Assessed/NA 4=Minimal Assistance 1=Total Assistance 5=Supervision or Setup 2=Maximal Assistance 6=Modified Mumford 3=Moderate Assistance 7=Complete IndependenceIRFPAI Quality Coding Scale 6 Independent with activity with or without an assistive device 5 Patient requires set up or clean up by helper. Patient completes activity by themselves 4 Supervision or touching assist (CGA). [place] provide cues , steadying assist 3 The helper provides less than half the effort to complete the activity 2 The helper provides more than half the effort to complete the activity 1 Dependent. The helper does all the effort to complete an activity 7 Patient refused to complete or attempt activity 9 The patient did not perform the activity before the current illness or injury 88 Not attempted due to Medical conditions or safety concerns Scootin Rollin Roll Left to Right (QC): 4 Supine to/from Sit: 3 Sit to/from Stand: 3 Sit to Lying (QC): 3 Sit to Stand (QC): 3 Chair/Tqr-hm-Pjrag Xfer(QC): 3 Bed to/from Chair: 3 Weight Bearing Weight Bearing Restriction: Full Weight Bearing Location Restriction: LE Bilateral Treatments Pt received meds from nursing at start of tx. PT reports needing to use BSC for BM. Pt transfers supine to EOB at Mod A due to pt resisting assistance with transfers even when asked not to. Pt then transferred EOB to BSC with SPT with GRILL ATTENDANT's assistance to get to BSC. After finished with BM, pt transferred from BSC to standing at Mod A for GRILL ATTENDANT to clean fredrick area. Pt then SPT back to EOB at Min A. Pt transferred EOB to supine at Min A to end tx with all needs met. Assessment Current Status: Poor Progress Pt was very agitated during tx and pt didn't know why she was agitated. Pt resisted transfers and was very nervous during tx. Pt continues to be weak in RLE. PT Short Term Goals Short Term Goals Time Frame: Jun 13, 2016 Transfers (B,C,W/C) (FIM): 3 Gait (FIM): 1 (hops only) Wheelchair (FIM): 4 Wheelchair distance (FIM): 3=150 ft Wheelchair Distance: 50' PT Usp Goals Beer Maker Goals PT Beer Maker Goals Time Frame: Jun 27, 2016 Transfers (B,C,W/C) (FIM): 6 Sit to Lying (QC): 6 Lying-Sitting on Side/Bed(QC): 6 Sit to Stand (QC): 6 Rollin Roll Left to Right (QC): 6 Chair/Lnu-ox-Wrkjf Xfer(QC): 6 Car Transfer (QC): 5 Does the Patient Walk: Yes Gait (FIM): 2 Gait distance (FIM): 1=up to 49 ft Distance: 10 ft hopping Walk 10 feet (QC): 4 Walk 10ft-Uneven Surface(QC): 88 Walk 50ft with 2 Turns (QC): 88 Walk 150 ft (QC): 88 Gait Level of Assist: 4 Gait Assistive Device: FWW Does the Pt use WC or Scooter?: Yes Wheelchair (FIM): 6 Wheelchair distance (FIM): 3=150 ft Wheelchair Level of Assist: 6 Wheel 50 feet with 2 turns (QC: 6 Stairs (FIM): 88 (usafe to attempt) 1 Step (curb) (QC): 88 4 Steps (QC): 88 12 Steps (QC): 88 Picking up an Object (QC): 88 (unsafe) PT Plan Problem List Problem List: Activity Tolerance, Functional Strength, Safety, Balance, Gait, Transfer, Bed Mobility Treatment/Plan Treatment Plan: Continue Plan of Care Treatment Plan: Bed Mobility, Education, Functional Activity Dalton, Functional Strength, Group Therapy, Gait, Safety, Therapeutic Exercise, Transfers Treatment Duration: Jun 27, 2016 Visits Per Week: 10-15 Minutes/Day (M-F): 60-90 Minutes/Day (Sat/Gallego): prn Safety Risks/Education Patient Education: Transfer Techniques, Correct Positioning, Safety Issues Teaching Recipient: Patient Teaching Methods: Discussion Response to Teaching: Reinforcement Needed Time/GCodes Time In: 1400 Time Out: 1430 Total Billed Treatment Time: 30 Total Billed Treatment visit, FA X3 (45m) ELA SIEGEL PTA Jun 06, 2016 16:01
[2016-06-06 18:11] VITALS: BP 97/57
[2016-06-06] MEDS ORDERED: MAGN400T6 PO (18:50)
[2016-06-06] MEDS ORDERED: HYDR-3820 PO (18:50)
[2016-06-06] MEDS ORDERED: OLAN5TAB23 PO (18:50)
[2016-06-06] MEDS ORDERED: TRAM50TA2 PO (18:50)
[2016-06-06] MEDS ORDERED: DIVA250T4 PO (18:50)
[2016-06-06] MEDS ORDERED: DIPH1TAB25 PO (18:50)
[2016-06-06] MEDS ORDERED: MENT71OI TOP (18:50)
[2016-06-06] MEDS ORDERED: LORA1TAB PO (18:50)
[2016-06-06] MEDS ORDERED: POVI3780 TOP (18:50)
[2016-06-06] MEDS: OLANZapine 5 MG ODT (ZyPREXA ZYDIS) PO SCH (21:06)
[2016-06-06] MEDS: AMITRIPTYLINE 50 MG (ELAVIL) TAB PO SCH (21:06)
[2016-06-06] MEDS: ENOXAPARIN 40 MG/0.4 ML (LOVENOX) SYR SC SCH (21:06)
[2016-06-06] MEDS: DIVALPROEX 250 MG DELAYED RELEASE (DEPAKOTE) TAB PO SCH (21:06)
[2016-06-07 06:00] VITALS: BP 97/52
--- NOTE | 2016-06-07 08:22 | Therapy Team Discharge Summary ---
Therapy Discharge Summary Discharge Recommendations Date of Discharge Therapy D/C Recommendations: 24 hr Supervision Occupational Therapy Pt. has been seen by occupational therapy to increase overall strength and mobility. Pt. has met no goals. Pt. has difficulty following cues, understanding what therapy is asking of her, and completing tasks. Pt. has wound on coccyx area that is painful. Does not understand her swallowing precautions. Pt. has gained movement in right UE in all planes, but continues to report that this is painful. Pt. requires max assist/dependent assist with all tasks. Due to level of cognition and advancement of disability, pt. is discharging today to a intermediate. They will determine what equipment needs she will have there. PT Snf Goals Vertical Contour Band Saw Operator Goals PT Vertical Contour Band Saw Operator Goals Time Frame: Jun 27, 2016 Transfers (B,C,W/C) (FIM): 6 Roll Left to Right (QC): 6 Sit to Lying (QC): 6 Lying-Sitting on Side/Bed(QC): 6 Sit to Stand (QC): 6 Chair/Nis-mv-Frmtk Xfer(QC): 6 Car Transfer (QC): 5 Does the Patient Walk: Yes Gait (FIM): 2 Gait distance (FIM): 1=up to 49 ft Distance: 10 ft hopping Walk 10 feet (QC): 4 Walk 10ft-Uneven Surface(QC): 88 Walk 50ft with 2 Turns (QC): 88 Walk 150 ft (QC): 88 Gait Level of Assist: 4 Gait Assistive Device: FWW Does the Pt use WC or Scooter?: Yes Wheelchair (FIM): 6 Wheelchair distance (FIM): 3=150 ft Wheelchair Level of Assist: 6 Wheel 50 feet with 2 turns (QC: 6 Stairs (FIM): 88 (usafe to attempt) 1 Step (curb) (QC): 88 4 Steps (QC): 88 12 Steps (QC): 88 Picking up an Object (QC): 88 (unsafe) OT Snf Goals Vertical Contour Band Saw Operator Goals Time Frame: Jul 04, 2016 Eating (FIM): 6 (not met- mod/max assist) Eating (QC): 6 (not met) Oral Hygiene (QC): 6 (not met) Grooming(FIM): 6 (not met) Bathing(FIM): 5 (not met- Dependent/max assist) Shower/Bathe Self (QC): 5 (not met) Upper Body Dressing(FIM): 5 (not met- dependent) Upper Body Dressing (QC): 5 (not met) Lower Body Dressing(FIM): 5 (not met- dependent) Lower Body Dressing (QC): 5 (not met) On/Off Footwear (QC): 5 (not met) Toileting(FIM): 6 (not met) Toileting Hygiene (QC): 6 (not met) Transfers (B,C,W/C) (FIM): 5 (not met) Toilet/Commode Transfer(FIM): 5 (not) Toilet/Commode Transfer (QC): 5 (not met) Shower Transfer(FIM): 5 (not met) Comprehension(FIM): 3 Expression (FIM): 3 Social Interaction(FIM): 4 Problem Solving(FIM): 3 Memory(FIM): 3 Additional Goals: 1-Demonstrate ADL Tasks, 2-Verbalize Understanding, 3- ImproveStrength/Dalton 1=Demonstrate adherence to instructed precautions during ADL tasks. 2=Patient will verbalize/demonstrate understanding of assistive devices/ modifications for ADL. 3=Patient will improve strength/tolerance for activity to enable patient to perform ADL's. Speech Vertical Contour Band Saw Operator Goals Vertical Contour Band Saw Operator Goals 1. The patient will demonstrate improved cognitive skills for increased function and safety with ADL's. 2. The patient will tolerate the least restrictive consistency diet without signs/symptoms of aspiration. Time Frame: Four Weeks Comprehension: 3 Expression: 3 Social Interaction: 4 Problem Solvin Memory: 3 MAURICE RAMOS OT Jun 07, 2016 08:22
--- NOTE | 2016-06-07 08:26 | Progress Note (SOAP) ---
Subjective Subjective/Events-last exam patient to be discharged today to snf. Impossible to get blood from her Objective Exam Vital Signs Date Time Temp Pulse Resp B/P Pulse Ox O2 Delivery O2 Flow Rate FiO2 06/07/16 06:00 96.6 83 18 97/52 96 Room Air 06/06/16 21:00 Room Air 06/06/16 18:11 99.2 83 18 97/57 96 I & O 06/07/16 07:00 Intake Total 1080 ml Output Total 1000 ml Balance 80 ml Capillary Refill : Greater Than 3 Seconds General Appearance: Thin Other ( less fragile) Results Lab Microbiology 05/30/16 C. difficile DNA Amplification - Final, Complete 05/30/16 C. difficile GDH Antigen & Toxins - Final, Complete Assessment/Plan Assessment/Plan Assess & Plan/Chief Complaint fragile. Weakness. New-onset diabetes. Skin breakdown. . 05/31/16. . Weakness. New-onset diabetes. Hypomagnesemia. Anemia to monitor. . 06/03/16. Patient anxious. Patient complaining of pain. Patient fragile. Weakness. Diabetes area Skin breakdown. . 06/04/16. Patient feels tired. Fragile. Weakness. Diabetes. Skin breakdown. . 06/05/16. Weakness. Sacral breakdown with 2, tunnels. Weakness. Hypomagnesemia`. Hypokalemia.. . 05/2616. Weakness sacral breakdown.. . 06/07/16. Patient be transferred today to snf Diagnosis/Problems: Clinical Quality Measures DVT/VTE Risk/Contraindication: Risk Factor Score Per Nursin RFS Level Per Nursing on Admit: 4+=Very High IBRAHIMA PATTON DO Jun 07, 2016 08:26
--- NOTE | 2016-06-07 08:33 | PM & R (SOAP) Progress Note ---
Subjective Subjective/Events-last exam Patient was seen in her room this AM Patient informed of transfer to [facility] for ongoing care today Discussed case with RN Appreciate MBS study and recs Diet adjusted Last lab shows Hypokalemia and anemia will recheck-see orders Objective Exam Last Set of Vital Signs Vital Signs Date Time Temp Pulse Resp B/P Pulse Ox O2 Delivery O2 Flow Rate FiO2 06/07/16 06:00 96.6 83 18 97/52 96 Room Air 06/02/16 19:40 2.00 Capillary Refill : Greater Than 3 Seconds I&O Intake and Output 06/07/16 00:00 Intake Total 1040 ml Output Total 1300 ml Balance -260 ml Intake Oral 1040 ml Output Urine Total 1300 ml # Bowel Movements 7 General: Moderate Distress HEENT: Atraumatic Neck: No JVD Lungs: Normal Air Movement Heart: Regular Rate, No Murmurs Abdomen: Soft Extremities: Other (L AKA with healing, intact incision. Plapable R DP pulse. ) Skin: Other (Sacral wound: 2.5 x 4.8 x 0.6 cm; base 75% slough, 25% granulation , mod. thin, cormier drainage. R 3rd toe: 2.3 x 1.7 x 0.2 cm; 100% black eschar, no drainage.) Neuro: Other (generalized weakness) Psych/Mental Status: Other (flat affect) Results Lab Laboratory Tests 06/05/16 06:06: Glucometer 68L 06/05/16 06:46: Glucometer 87 Microbiology 05/30/16 C. difficile DNA Amplification - Final, Complete 05/30/16 C. difficile GDH Antigen & Toxins - Final, Complete Assessment/Plan Assessment S/P left aka S/P toe amputations rt foor WBAT RT Heel Underweight with hx of Substance abuse with associated Hypoalbuminemia Hypocalcemia Hypokalemia -recheck Anemia-worsening recheck Dysphagia on modified consistency diet-appreciate ST note sacral pressure sore as per DR Jules and his RX-Olivarez catheter remains in for wound /skin protection Plan Discharge today to [facility] as per above for ongoing care recheck Serum K and H&H-See orders Depakote begun last evening as mood stabilizer F/U with Wound care clinic and PCP or [facility] Physician See orders. MAHENDRA MCGILL MD Jun 07, 2016 08:33
[2016-06-07] MEDS: DIPHENOXYLATE/ATROPINE 2.5MG/0.025MG (LOMOTIL) TAB PO PRN (08:44)
[2016-06-07] MEDS: PARoxetine 10 MG (PAXIL) TAB PO SCH (08:44)
[2016-06-07] MEDS: DIVALPROEX 250 MG DELAYED RELEASE (DEPAKOTE) TAB PO SCH (08:44)
[2016-06-07] MEDS: ALPRAZolam 0.25 MG (XANAX) TAB PO PRN (08:45)
[2016-06-07] MEDS: MAGNESIUM OXIDE (MAG-OX)400 MG TAB PO SCH ×2 (08:45→13:49)
[2016-06-07] MEDS: POVIDONE (BETADINE) 10% SOLN 240 ML BTL TOP SCH (09:02)
--- NOTE | 2016-06-07 10:22 | Therapy Team Discharge Summary ---
Therapy Discharge Summary Discharge Recommendations Date of Discharge Therapy D/C Recommendations: 24 hr Supervision Speech-Language Pathology The patient was admitted to [facility] following an amputation procedure. Upon arrival the patient demonstrated severe cognitive deficits and moderate oropharyngeal dysphagia. Skilled speech therapy focused on traditional dysphagia strengthening exercises, as well as, functional cognitive tasks. The patient participated in a video swallow throughout her stay which demonstrated suspected aspiration with thin liquids and nectar-thick liquids. Due to the study results, the patient remained on a puree consistency diet with honey-thick liquids. The patient did not meet initial goals placed by clinician secondary to poor motivation and participation. Skilled speech therapy is not recommended post discharge. The patient will discharge from inpatient, acute speech pathology at this time. PT Shelter Goals Shelter Goals PT Continuous Vulcanizing Machine Operator Goals Time Frame: Jun 27, 2016 Transfers (B,C,W/C) (FIM): 6 Roll Left to Right (QC): 6 Sit to Lying (QC): 6 Lying-Sitting on Side/Bed(QC): 6 Sit to Stand (QC): 6 Chair/Hvx-fw-Syorf Xfer(QC): 6 Car Transfer (QC): 5 Does the Patient Walk: Yes Gait (FIM): 2 Gait distance (FIM): 1=up to 49 ft Distance: 10 ft hopping Walk 10 feet (QC): 4 Walk 10ft-Uneven Surface(QC): 88 Walk 50ft with 2 Turns (QC): 88 Walk 150 ft (QC): 88 Gait Level of Assist: 4 Gait Assistive Device: FWW Does the Pt use WC or Scooter?: Yes Wheelchair (FIM): 6 Wheelchair distance (FIM): 3=150 ft Wheelchair Level of Assist: 6 Wheel 50 feet with 2 turns (QC: 6 Stairs (FIM): 88 (usafe to attempt) 1 Step (curb) (QC): 88 4 Steps (QC): 88 12 Steps (QC): 88 Picking up an Object (QC): 88 (unsafe) OT Continuous Vulcanizing Machine Operator Goals Shelter Goals Time Frame: Jul 04, 2016 Eating (FIM): 6 (not met- mod/max assist) Eating (QC): 6 (not met) Oral Hygiene (QC): 6 (not met) Grooming(FIM): 6 (not met) Bathing(FIM): 5 (not met- Dependent/max assist) Shower/Bathe Self (QC): 5 (not met) Upper Body Dressing(FIM): 5 (not met- dependent) Upper Body Dressing (QC): 5 (not met) Lower Body Dressing(FIM): 5 (not met- dependent) Lower Body Dressing (QC): 5 (not met) On/Off Footwear (QC): 5 (not met) Toileting(FIM): 6 (not met) Toileting Hygiene (QC): 6 (not met) Transfers (B,C,W/C) (FIM): 5 (not met) Toilet/Commode Transfer(FIM): 5 (not) Toilet/Commode Transfer (QC): 5 (not met) Shower Transfer(FIM): 5 (not met) Comprehension(FIM): 3 Expression (FIM): 3 Social Interaction(FIM): 4 Problem Solving(FIM): 3 Memory(FIM): 3 Additional Goals: 1-Demonstrate ADL Tasks, 2-Verbalize Understanding, 3- ImproveStrength/Dalton 1=Demonstrate adherence to instructed precautions during ADL tasks. 2=Patient will verbalize/demonstrate understanding of assistive devices/ modifications for ADL. 3=Patient will improve strength/tolerance for activity to enable patient to perform ADL's. Speech Shelter Goals Continuous Vulcanizing Machine Operator Goals 1. The patient will demonstrate improved cognitive skills for increased function and safety with ADL's. 2. The patient will tolerate the least restrictive consistency diet without signs/symptoms of aspiration. Time Frame: Four Weeks Comprehension: 3 (NOT MET) Expression: 3 (NOT MET) Social Interaction: 4 (NOT MET) Problem Solvin (NOT MET) Memory: 3 (NOT MET) NARA RODRIGUEZ Jun 07, 2016 10:22
--- NOTE | 2016-06-07 14:20 | Therapy Team Discharge Summary ---
Therapy Discharge Summary Discharge Recommendations Date of Discharge Therapy D/C Recommendations: 24 hr Supervision Physical Therapy Patient came to rehab for ARF, Rhabdo, amputation. Upon admission, patient was dependent for bed mobility and transfers but she could assist some with rolling and supine to sit, could not propel a wheelchair. Patient has been performing bed mobility and transfer training, balance and endurance training, standing, and wheelchair mobility training. Patient has not made good progress and has not met any of her half-way goals. Now, patient is still dependent with bed mobility and transfers but can roll with mod assist, and she can propel a wheelchair 50' with max assist. Patient is being discharged from this facility to a group home today and will be discharged from PT at this time. PT Correction Goals Collection Systems Modeler Goals PT Correction Goals Time Frame: Jun 27, 2016 Transfers (B,C,W/C) (FIM): 6 Roll Left to Right (QC): 6 Sit to Lying (QC): 6 Lying-Sitting on Side/Bed(QC): 6 Sit to Stand (QC): 6 Chair/Ymn-zk-Popcq Xfer(QC): 6 Car Transfer (QC): 5 Does the Patient Walk: Yes Gait (FIM): 2 Gait distance (FIM): 1=up to 49 ft Distance: 10 ft hopping Walk 10 feet (QC): 4 Walk 10ft-Uneven Surface(QC): 88 Walk 50ft with 2 Turns (QC): 88 Walk 150 ft (QC): 88 Gait Level of Assist: 4 Gait Assistive Device: FWW Does the Pt use WC or Scooter?: Yes Wheelchair (FIM): 6 Wheelchair distance (FIM): 3=150 ft Wheelchair Level of Assist: 6 Wheel 50 feet with 2 turns (QC: 6 Stairs (FIM): 88 (usafe to attempt) 1 Step (curb) (QC): 88 4 Steps (QC): 88 12 Steps (QC): 88 Picking up an Object (QC): 88 (unsafe) OT Correction Goals Correction Goals Time Frame: Jul 04, 2016 Eating (FIM): 6 (not met- mod/max assist) Eating (QC): 6 (not met) Oral Hygiene (QC): 6 (not met) Grooming(FIM): 6 (not met) Bathing(FIM): 5 (not met- Dependent/max assist) Shower/Bathe Self (QC): 5 (not met) Upper Body Dressing(FIM): 5 (not met- dependent) Upper Body Dressing (QC): 5 (not met) Lower Body Dressing(FIM): 5 (not met- dependent) Lower Body Dressing (QC): 5 (not met) On/Off Footwear (QC): 5 (not met) Toileting(FIM): 6 (not met) Toileting Hygiene (QC): 6 (not met) Transfers (B,C,W/C) (FIM): 5 (not met) Toilet/Commode Transfer(FIM): 5 (not) Toilet/Commode Transfer (QC): 5 (not met) Shower Transfer(FIM): 5 (not met) Comprehension(FIM): 3 (NOT MET) Expression (FIM): 3 (NOT MET) Social Interaction(FIM): 4 (NOT MET) Problem Solving(FIM): 3 (NOT MET) Memory(FIM): 3 (NOT MET) Additional Goals: 1-Demonstrate ADL Tasks, 2-Verbalize Understanding, 3- ImproveStrength/Dalton 1=Demonstrate adherence to instructed precautions during ADL tasks. 2=Patient will verbalize/demonstrate understanding of assistive devices/ modifications for ADL. 3=Patient will improve strength/tolerance for activity to enable patient to perform ADL's. Speech Correction Goals Collection Systems Modeler Goals 1. The patient will demonstrate improved cognitive skills for increased function and safety with ADL's. 2. The patient will tolerate the least restrictive consistency diet without signs/symptoms of aspiration. Time Frame: Four Weeks Comprehension: 3 (NOT MET) Expression: 3 (NOT MET) Social Interaction: 4 (NOT MET) Problem Solvin (NOT MET) Memory: 3 (NOT MET) ALONSO FARIA PT Jun 07, 2016 14:20
[2016-06-07 15:00] VITALS: BP 97/52
--- NOTE | 2016-06-20 11:11 | DISCHARGE SUMMARY ---
DATE OF ADMISSION: 05/29/2016 DATE OF DISCHARGE: 06/07/2016 HISTORY OF PRESENT ILLNESS: The patient is a 65-year-old female with history of meth abuse who was transferred from [facility] to [facility] in [place] after she presented here unresponsive with profound circulatory shock and multiorgan failure. The patient received fluid resuscitation. CT of the head showed old lacunar infarcts in the basal ganglia. The patient went on to have a left AKA on 05/13/2016 at [facility] in [place], [place]. The patient received 2 units packed red blood cells on 05/26 and 05/27/2016 and had 2nd, 3rd and 4th toes and tip of the great toe amputation of the right foot . Right heel is weight-bearing as tolerated using [employer] postop shoe. Postop acute injury and acute respiratory failure, resolved. Prior to hospitalization, the patient was living with her in [place], [place] and was reportedly independent. However, the patient is quite underweight with pressure sores on her buttocks and various bruising. She was referred to Inpatient Rehabilitation Unit at [facility] for ongoing amputee rehabilitation and rehabilitation for general debilitation. She requires assistance for ADLs and mobility skills. Her Accu-Chek upon admission to [facility] rehab was 29 and replacement was given. The patient has no current medical insurance. PAST MEDICAL HISTORY: 1. Substance abuse. 2. Weight loss, most likely due to above. 3. Acute blood loss anemia as per above. She is a DNR. MEDICAL COURSE: The patient was followed by Dr. Lopez and Dr. Varela while on rehab unit. Nutritional support was provided. She had an MBS with speech therapy showing compromised swallowing mechanism; liquids and solids were modified to appropriate consistency. She was provided with nutritional support as well. She was seen by Dr. Jules for wound care and topical care was provided. She was counseled by Dr. Diaz [facility]. The patient had significant agitation at times. Crying out, mild low-dose psychotropic of Zyprexa was provided as well as Depakote as a mood stabilizer. business services associate was arranged for the patient to go to local shelter with ongoing care and she was accepted, Dr. Varela agreed to follow her at that facility. CBC on 06/04 showed a WBC 7.5, H&H 10.4/, platelet count 213,000. Chemistry on 06/04 showed serum potassium 2.9. She was provided with placement. Calcium was 7.1, magnesium 1.5. She was provided with replacement. She will have follow-up labs with Dr. Varela at shelter. Hemoglobin A1c on 05/30 was 5.7; there is a question as to whether she was a diabetic which apparently is not. Stool culture was negative for Salmonella, Shigella and E. coli, campylobacter. Stool for C-Diff was negative on 05/30. She was weaned from oxygen. Blood pressure on 06/07 was 97/52, respirations 18, pulse 83, O2 sat 96% on room air. REHABILITATION COURSE: She was followed by PT/OT and speech therapy. PT notes that upon admission, the patient was dependent for bed mobility, and transfers. She could not propel a wheelchair. On discharge she still dependent with bed mobility, and transfers but can roll with mod assist and she could propel a wheelchair 50 feet with max assist. She made limited gains. OT notes upon discharge the patient required max assist to dependent assist with all tasks and made little improvement due to cognition and advance in disability. Speech therapy noted that upon admission, the patient the demonstrated severe cognitive deficits and moderate oropharyngeal dysphagia. The patient participated in a video swallow throughout her stay which demonstrated suspected aspiration with thin liquids and nectar thick liquids. Due to study results. The patient remains on pureed consistency diet with honey thick liquids. DISCHARGE INSTRUCTIONS: The patient was discharged to a local SNU. She will have follow-up with Dr. Varela. Continue current diet as listed above. Certainly follow-up with PT, OT, speech, if available at that facility. DISCHARGE MEDICATIONS: 1. Lomotil 2 tablets p.o. q.4 hours p.r.n. diarrhea. 2. Depakote 250 mg p.o. b.i.d. 3. Hydrocodone APAP 10/325, 1 tablet p.o. q.6 h. for moderate pain. 4. Lorazepam 1 mg p.o. views q.6 hours p.r.n. anxiety. 5. Mag-Ox 400 mg p.o. t.i.d. 6. Calmoseptine ointment apply topically q.i.d. p.r.n. itch and rash. 7. Olamtapine 5 mg p.o. at bedtime. 8. Betadine topically daily to affected area. 9. Tramadol 50 mg p.o. t.i.d. 10. Amitriptyline 50 mg p.o. at bedtime. 11. Paroxetine 50 mg p.o. daily. DISCHARGE DIAGNOSES: 1. 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 2. Circulatory shock, treated. 3. Pressure ulcer sacrum, un-stageable, with the treatment. 4. Malnutrition provided with supplements. 5. Postoperative anemia. 6. History of stroke with right-sided weakness. 7. Meth abuse. 8. Hypomagnesemia replacement provided. 9. Dysphagia on modified diet, status post MBS. 10. Hypoglycemia x1 treated. 11. Hypocalcemia, treated. 12. Hypokalemia, treated CONDITION AT DISCHARGE: Somewhat improved and stable. PROGNOSIS: Rehab prognosis appears somewhat guarded for this patient with multiple comorbidities, dysphagia and underweight status and impaired cognition. Job ID: [id number] Dictated Date: 06/18/2016 21:35:27 Hand Roller Engraver Date: 06/19/2016 15:08:50/dl OCONNELL
== END 2016-06-07 15:00 | DRG 560 ==
PROVIDERS: ADMIT Physical Medicine & Rehabilitation; ATTEND Physical Medicine & Rehabilitation
DX: Z47.81 Encounter for orthopedic aftercare following surgical amputation (principal); Z89.612 Acquired absence of left leg above knee; Z89.421 Acquired absence of other right toe(s); Z89.411 Acquired absence of right great toe; L89.150 Pressure ulcer of sacral region, unstageable; E46 Unspecified protein-calorie malnutrition; D64.9 Anemia, unspecified; I69.351 Hemiplegia and hemiparesis following cerebral infarction affecting right dominant side; Z66 Do not resuscitate; F15.10 Other stimulant abuse, uncomplicated; R13.10 Dysphagia, unspecified; E11.649 Type 2 diabetes mellitus with hypoglycemia without coma; E83.51 Hypocalcemia; E87.6 Hypokalemia; E83.42 Hypomagnesemia
CPT/HCPCS: 36415; 71010; 74230; 80053; 82962; 83036; 83735; 84134; 85025; 85027; 87045; 87046; 87324; 87449; 87493

== ENCOUNTER 2016-06-11 15:42 | Emergency (ER) | payer MEDICAID, MEDICARE, OTHER ==
[~2016-06-11] VITALS: Ht 152.4 cm; Wt 36.3 kg
[~2016-06-11 15:42] MED LIST changes: +ALPR1TAB7 PO; +AMIT50TA3 PO; +DIPH1TAB25 PO; +DIVA250T4 PO; +HYDR-3812 PO; +HYDR-3820 PO; +LORA1TAB PO; +MAGN400T6 PO; +MENT71OI TOP; +OLAN5TAB23 PO; +PARO10TA3 PO; +POVI3780 TOP; +TRAM50TA2 PO
--- NOTE | 2016-06-11 16:25 | ED General ---
General Chief Complaint: General Problems/Pain Stated Complaint: UTI Source of Information: Patient Exam Limitations: No Limitations History of Present Illness Time Seen by Provider: 16:22 Initial Comments To ER from [facility] with reports of UTI and falls. She was placed in their facility on 06/07/15. Preceding this was an admission to ER at the end of april for unresponsiveness and found to have rhabdomyolysis, multiorgan system failure and hyperkalemia. Preceding this she lived alone and was at home taking care of herself. She does have a history of methamphetamine and polysubstance abuse. She was ultimately transferred to [facility] where pressors were continued for hypotension. She ultimately lost the left leg below the knee and several toes on the right foot. Timing/Duration: 1-2 Days Severity: Moderate Associated Systoms: Denies Symptoms Allergies and Home Medications Allergies Coded Allergies: No Allergy Information Available (Unverified , 05/03/16) PT UNRESPONSIVE Home Medications Amitriptyline HCl 50 Mg Tablet 50 MG PO HS (Reported) Diphenoxylate HCl/Atropine 1 Each Tablet #90 2 EA PO Q6HR PRN PRN DIARRHEA Prescribed by: MAHENDRA MCGILL on 06/06/161849 Divalproex Sodium 250 Mg Tablet.dr #60 250 MG PO BID Prescribed by: MAHENDRA MCGILL on 06/06/161849 Hydrocodone/Acetaminophen 1 Each Tablet #60 1 EA PO Q6H PRN PRN MODERATE PAIN Prescribed by: MAHENDRA MCGILL on 06/06/161849 Lorazepam 1 Mg Tablet #60 1 MG PO Q6HR PRN PRN ANXIETY Prescribed by: MAHENDRA MCGILL on 06/06/161849 Magnesium Oxide 400 Mg Tablet #90 400 MG PO TID Prescribed by: MAHENDRA MCGILL on 06/06/161849 Menthol/Lanolin/Calamine/Znox 71 Gm Oint #1 0 GM TOP QID PRN PRN ITCHING AND RASH Prescribed by: MAHENDRA MCGILL on 06/06/161849 Olanzapine 5 Mg Tab.rapdis #30 5 MG PO HS Prescribed by: MAHENDRA MCGILL on 06/06/161849 Paroxetine HCl 10 Mg Tablet 15 MG PO DAILY (Reported) TAKES 1 & 1/2 (10MG) TABLET Povidone-Iodine 3,780 Ml Solution #1 0 ML TOP DAILY Prescribed by: MAHENDRA MCGILL on 06/06/161849 Tramadol HCl 50 Mg Tablet #60 50 MG PO TID Prescribed by: MAHENDRA MCGILL on 06/06/161849 Constitutional: see HPI EENTM: see HPI Respiratory: no symptoms reported Cardiovascular: no symptoms reported Genitourinary: no symptoms reported Musculoskeletal: no symptoms reported Skin: no symptoms reported Psychiatric/Neurological: No Symptoms Reported Hematologic/Lymphatic: No Symptoms Reported Immunological/Allergic: no symptoms reported Past Bpgazyb-Xcvniw-Nbopgr Hx Patient Social History Drug of Choice: meth Type Used: Cigarettes Recent Foreign Travel: No Contact w/Someone Who Travel: No Recent Hopitalizations: Yes (multi organ failure) Immunizations Up To Date Date of Influenza Vaccine: May 22, 2016 Seasonal Allergies Seasonal Allergies: No Surgeries HX Surgeries: No (unknown) Respiratory Hx Respiratory Disorders: No (unknown) Respiratory Disorders: COPD Cardiovascular Hx Cardiac Disorders: No (unknown) Genitourinary Genitourinary Disorders: Renal Failure Musculoskeletal Musculoskeletal Disorders: Amputee Blood Transfusions Adverse Reaction to a Blood Tr: No Physical Exam Vital Signs Vital Sign - Last 12Hours 06/11/16 16:41 Temp 96.2 Pulse 82 Resp 14 B/P 105/72 Pulse Ox 95 O2 Delivery Room Air Capillary Refill : General Appearance: No Apparent Distress WD/WN Chronically ill Cachetic Other (patient weighs less than 100 pounds) HEENT: PERRL/EOMI TMs Normal Neck: Full Range of Motion Normal Inspection Respiratory: No Accessory Muscle Use No Respiratory Distress Extremity: Other (left smdvx-ugn-wggg amputation with dressing in place, amputation of several toes on the right foot with dressing in place.) Neurologic/Psychiatric: Alert Other (conversation is confused) Skin: Normal Color Warm/Dry Progress/Results/Core Measures Results/Orders My Orders Orders-MELVI BANEGAS APRN Ct Head/Cervical Spine Wo (06/11/16 16:21) Chest 1 View, Ap/Pa Only (06/11/16 16:21) General/Regular (06/11/16 Dinner) Vital Signs/I&O Vital Sign - Last 12Hours 06/11/16 16:41 Temp 96.2 Pulse 82 Resp 14 B/P 105/72 Pulse Ox 95 O2 Delivery Room Air Diagnostic Imaging Diagonstic Imaging: Xray, CT Comments NAME: JENNY PRERY Myrna MED REC#: [id number] PT STATUS: REG ER : 1960 PHYSICIAN: MELVI BANEGAS APRN ADMIT DATE: 06/11/16/ER Draft Date of Exam:06/11/16 CHEST 1 VIEW, AP/PA ONLY INDICATION: Fell. COMPARISON STUDY: Chest from 06/01/2016. FINDINGS: A frontal view of the chest demonstrates resolution of the right pleural effusion and right basilar atelectasis. The small left pleural effusion and adjacent atelectasis have decreased. Underlying COPD changes are present. Heart size and vascularity are normal. There is calcification of aorta. Calcified granulomas are again identified. IMPRESSION: Improvement in aeration of the lung bases and decrease of the pleural effusions. Underlying COPD changes are present. Dictated on workstation # [id number] Dict: 06/11/16 1650 Trans: 06/11/16 1658 KB [id number] Interpreted by: MEY HARMON MD Electronically signed by: NAME: JENNY PERRY [facility] REC#: [id number] PT STATUS: REG ER : 1960 PHYSICIAN: MELVI BANEGAS APRN ADMIT DATE: 06/11/16/ER Signed Date of Exam:06/11/16 CT HEAD/CERVICAL SPINE WO CLINICAL INDICATION: Patient status post fall with confusion and uncooperative. EXAM: Head CT without IV contrast. Axial CT scan of the cervical spine with sagittal and coronal reformations. COMPARISON: Head CT without IV contrast dated 05/03/2016. FINDINGS: Head CT: There is no evidence of acute cerebral infarct, intracranial hemorrhage, or gross mass effect. There are focal and patchy areas of low-attenuation white matter changes seen throughout both cerebral hemispheres and bilateral cerebellar regions. Stable chronic lacunar infarct involving the bilateral basal ganglia regions. There is normal dunbar-white matter distinction. The brain parenchymal volume appears appropriate for patient's age. There is no significant midline shift or herniation. There is no evidence of hydrocephalus. The basal cisterns are unremarkable. The skull, extracranial soft tissue, and orbits are unremarkable. There is mild mucosal thickening involving the ethmoid sinus. Cervical spine: There is no evidence of acute cervical spine fracture or dislocation. There are small anterior spurs seen throughout the cervical spine. There are small posterior disc herniations at the C3-C4 and C4-C5 levels which cause mild central canal narrowing. There is no significant neuroforaminal narrowing. There is mild bilateral facet arthropathy. There is no significant neck soft tissue abnormality. There are emphysematous lung disease changes seen. IMPRESSION: 1: There is no evidence of acute intracranial process. 2: Cervical spine degenerative disease with no acute fracture or dislocation. 3: Chronic brain parenchymal small vessel ischemic disease and chronic lacunar infarcts. Dictated by: Dictated on workstation # [id number] Dict: 06/11/16 1649 Trans: 06/11/16 1703 GLADYS [id number] Interpreted by: NEGIN NEWBY MD Electronically signed by: NEGIN NEWBY MD 06/11/16 1701 Departure Communication Progress Notes I did discuss at length with the patient and her Flo the necessity of hospice and her very poor prognosis for recovery. Flo would like to talk to the patient's twin sister when she gets off work at around 7 p.m. tonight and then come see the patient before initiating hospice. I have updated Dr. Dr. Varela on these plans and he is in agreement. Patient has orders to start Keflex tomorrow at the assisted. We will give intramuscular Rocephin times one tonight. Impression Impression: Primary Impression: Failure to thrive Qualified Code: R62.7 - Adult failure to thrive Additional Impressions: Cachexia Dysphagia Qualified Code: R13.10 - Dysphagia, unspecified Urinary tract infection Qualified Code: N30.00 - Acute cystitis without hematuria Disposition: 03 XFER SNF Condition: Stable Decision to Admit Reason: Admit from ER (General) Decision to Admit/Date: Jun 11, 2016 Time/Decision to Admit Time: 18:11 Departure-Patient Inst. Decision time for Depature: 18:11 Referrals: ORION SPEARS DO (PCP) Primary Care Physician Patient Instructions: Urinary Tract Infection, Adult (DC) MELVI BANEGAS APRN Jun 11, 2016 16:25
--- NOTE | 2016-06-11 16:58 | Diagnostic Imaging Report ---
INDICATION: Fell. COMPARISON STUDY: Chest from 06/01/2016. FINDINGS: A frontal view of the chest demonstrates resolution of the right pleural effusion and right basilar atelectasis. The small left pleural effusion and adjacent atelectasis have decreased. Underlying COPD changes are present. Heart size and vascularity are normal. There is calcification of aorta. Calcified granulomas are again identified. IMPRESSION: Improvement in aeration of the lung bases and decrease of the pleural effusions. Underlying COPD changes are present. Dictated by: Dictated on workstation # [id number]
--- NOTE | 2016-06-11 16:59 | Diagnostic Imaging Report ---
CLINICAL INDICATION: Patient status post fall with confusion and uncooperative. EXAM: Head CT without IV contrast. Axial CT scan of the cervical spine with sagittal and coronal reformations. COMPARISON: Head CT without IV contrast dated 05/03/2016. FINDINGS: Head CT: There is no evidence of acute cerebral infarct, intracranial hemorrhage, or gross mass effect. There are focal and patchy areas of low-attenuation white matter changes seen throughout both cerebral hemispheres and bilateral cerebellar regions. Stable chronic lacunar infarct involving the bilateral basal ganglia regions. There is normal dunbar-white matter distinction. The brain parenchymal volume appears appropriate for patient's age. There is no significant midline shift or herniation. There is no evidence of hydrocephalus. The basal cisterns are unremarkable. The skull, extracranial soft tissue, and orbits are unremarkable. There is mild mucosal thickening involving the ethmoid sinus. Cervical spine: There is no evidence of acute cervical spine fracture or dislocation. There are small anterior spurs seen throughout the cervical spine. There are small posterior disc herniations at the C3-C4 and C4-C5 levels which cause mild central canal narrowing. There is no significant neuroforaminal narrowing. There is mild bilateral facet arthropathy. There is no significant neck soft tissue abnormality. There are emphysematous lung disease changes seen. IMPRESSION: 1: There is no evidence of acute intracranial process. 2: Cervical spine degenerative disease with no acute fracture or dislocation. 3: Chronic brain parenchymal small vessel ischemic disease and chronic lacunar infarcts. Dictated by: Dictated on workstation # [id number]
[2016-06-11] MEDS ORDERED: LIDOCAINE 1% INJ 20 ML (XYLOCAINE) VIAL INJ ONE (18:15)
[2016-06-11] MEDS ORDERED: cefTRIAXone 1 GM (ROCEPHIN) VIAL IM ONE (18:15)
[2016-06-11 18:27] VITALS: BP 102/70
== END 2016-06-11 18:27 ==
LOC: EDUNIT# 15:42 → ER 15:44
DX: R62.7 Adult failure to thrive (principal); R64 Cachexia; R13.10 Dysphagia, unspecified; N39.0 Urinary tract infection, site not specified; M47.812 Spondylosis without myelopathy or radiculopathy, cervical region; J44.9 Chronic obstructive pulmonary disease, unspecified; Z89.512 Acquired absence of left leg below knee
CPT/HCPCS: 70450; 71010; 72125; 96372; 99285

== ENCOUNTER → 2016-07-05 | Outpatient (CLI) | payer MEDICAID, OTHER ==
--- NOTE | 2016-07-05 16:27 | Diagnostic Imaging Report ---
INDICATION: Sacral pressure ulcer. FINDINGS: There is ulcer present at the distal sacrum. Gas is present in the soft tissues. There is a question of mild irregularity of the adjacent sacral bony cortex. No fractures are demonstrated. The SI joints are symmetrical. Pubic symphysis in good alignment. Femoral heads are in normal articulation. IMPRESSION: Decubitus ulcer overlying the sacrum with findings suggesting some bony erosion. Would consider MRI to evaluate for bone edema. Dictated by: Dictated on workstation # [id number]
== END ==
LOC: RAD 11:02
PROVIDERS: ATTEND Surgery
DX: L89.154 Pressure ulcer of sacral region, stage 4 (principal)
CPT/HCPCS: 72170

== ENCOUNTER → 2016-07-12 | Outpatient (CLI) | payer OTHER | LOC: RAD 15:57 | PROVIDERS: ATTEND Surgery | DX: M86.48 Chronic osteomyelitis with draining sinus, other site (principal); L89.154 Pressure ulcer of sacral region, stage 4; E43 Unspecified severe protein-calorie malnutrition; F15.180 Other stimulant abuse with stimulant-induced anxiety disorder; L03.312 Cellulitis of back [any part except buttock and flank] ==

== ENCOUNTER → 2016-07-29 | Outpatient (CLI) | payer MEDICAID ==
[~2016-07-29] MED LIST changes: +GADOBUTROL 7.5 MMOL/7.5 ML (GADAVIST) VIAL IV ONE
--- NOTE | 2016-07-29 17:38 | Diagnostic Imaging Report ---
PROCEDURE: MRI pelvis without contrast. TECHNIQUE: Multiplanar, multisequence MRI of the pelvis was performed without contrast. INDICATION: Sacral ulcer. Patient has significant pain and could not tolerate longer scan and therefore the initially planned with and without contrast scan was changed to without contrast study. FINDINGS: Please note that the study suffers from some motion artifact which could decrease sensitivity of this exam. There is soft tissue edema seen around the coccyx and the distal aspect of the sacrum with no significant area of bone marrow edema seen. There is slight bone marrow edema noted in the sacrococcygeal junction on the right side which is favored to be reactive rather than an early infection. Edema around the periosteum is seen. There is no significant fluid collection identified. 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 There is a Olivarez catheter seen in the urinary bladder. Soft tissue structures of the pelvis appear grossly unremarkable. IMPRESSION: There is soft tissue edema around the coccyx and distal sacrum with minimal increased bone marrow signal on the right side of the sacrococcygeal junction which could be reactive. A follow-up study in a few weeks after treatment of the soft tissue infection is suggested to ensure no further bone involvement is seen. Dictated by: Dictated on workstation # [id number]
== END ==
LOC: RAD 15:58
PROVIDERS: ATTEND Surgery
DX: L89.154 Pressure ulcer of sacral region, stage 4 (principal); E43 Unspecified severe protein-calorie malnutrition; F15.180 Other stimulant abuse with stimulant-induced anxiety disorder; L03.312 Cellulitis of back [any part except buttock and flank]; M86.48 Chronic osteomyelitis with draining sinus, other site
CPT/HCPCS: 72195

== ENCOUNTER → 2016-09-04 | Outpatient (CLI) | payer MEDICAID ==
[~2016-09-04] MED LIST changes: -GADOBUTROL 7.5 MMOL/7.5 ML (GADAVIST) VIAL IV ONE
[2016-09-04 09:20] LABS: BASOPHILS # (AUTO) 0.1 10^3/uL (0.0-0.1); BASOPHILS % (AUTO) 1 % (0-10); EOSINOPHILS # (AUTO) 0.4 10^3/uL (0.0-0.3); EOSINOPHILS % (AUTO) 4 % (0-10); LYMPHOCYTES # (AUTO) 2.1 X 10^3 (1.0-4.0); LYMPHOCYTES % (AUTO) 20 % (12-44); MEAN CORPUSCULAR HEMOGLOBIN 28 PG (25-34); MEAN CORPUSCULAR HGB CONC 32 G/DL (32-36); MEAN CORPUSCULAR VOLUME 88 FL (80-99); MEAN PLATELET VOLUME 9.5 FL (7.4-10.4); MONOCYTES # (AUTO) 1.2 X 10^3 (0.0-1.0); MONOCYTES % (AUTO) 11 % (0-12); NEUTROPHILS % (AUTO) 65 % (42-75); PLATELET COUNT 308 10^3/uL (130-400); RED BLOOD COUNT 5.68 10^6/uL (4.35-5.85); RED CELL DISTRIBUTION WIDTH 14.6 % (10.0-14.5); WHITE BLOOD COUNT 10.8 10^3/uL (4.3-11.0)
[2016-09-04 09:41] LABS: ALANINE AMINOTRANSFERASE 12 U/L (0-55); ANION GAP 10 MMOL/L (5-14); ASPARTATE AMINO TRANSFERASE 16 U/L (5-34); BILIRUBIN,TOTAL 0.1 MG/DL (0.1-1.0); BLOOD UREA NITROGEN 20 MG/DL (7-18); BUN/CREATININE RATIO 28; CALCIUM 10.3 MG/DL (8.5-10.1); CARBON DIOXIDE 25 MMOL/L (21-32); CHLORIDE 101 MMOL/L (98-107); CREATININE SERUM 0.71 MG/DL (0.60-1.30); GFR ESTIMATED > 60; GLUCOSE 84 MG/DL (70-105); POTASSIUM 4.9 MMOL/L (3.6-5.0); SODIUM 136 MMOL/L (135-145); TOTAL PROTEIN 7.9 G/DL (6.4-8.2)
== END ==
LOC: LAB 09:05
PROVIDERS: ATTEND Surgery
DX: L89.154 Pressure ulcer of sacral region, stage 4 (principal)
CPT/HCPCS: 36415; 80053; 85025

== ENCOUNTER 2016-10-02 08:42 | Outpatient (RCR) | payer MEDICAID, OTHER | END 2016-10-02 15:38 | disposition home or self-care (01) | LOC: WOUNDCARE 08:42 | PROVIDERS: ATTEND Surgery | DX: L89.154 Pressure ulcer of sacral region, stage 4 (principal); E43 Unspecified severe protein-calorie malnutrition; F18.180 Inhalant abuse with inhalant-induced anxiety disorder; L03.312 Cellulitis of back [any part except buttock and flank] | CPT/HCPCS: 11042; 11043; 87070; 87075; 87077; 87186; 87205; 99212 ==